=== PATIENT | male | born 1940 | race Caucasian/White ===

== ENCOUNTER 2018-06-05 11:22 | Observation (INO) | payer MEDICARE, SELFPAY ==
[2018-06-05] VITALS (13 sets, daily range): BP systolic 122–169; BP diastolic 74–98; PULSE 60–140; RESP 16–21; TEMP 36.6–36.9; O2SAT 94–97; BMI 31.8; BMI 30.8; BMI 30.9
--- NOTE | 2018-06-05 11:39 | EKG12_ITS ---
Test Reason : FALL Blood Pressure : / mmHG Vent. Rate : 066 BPM Atrial Rate : 066 BPM P-R Int : 218 ms QRS Dur : 090 ms QT Int : 418 ms P-R-T Axes : 049 -21 079 degrees QTc Int : 438 ms Sinus rhythm with 1st degree A-V block Leftward axis Septal DC, age undetermined, cannot be excluded Confirmed by BEVERLY GOLDSTEIN, CRISTHIAN ([id number]), acquisitions editor PAVAN STOVER ([id number]) on 06/10/2018 1:01:14 PM Referred By: YARELI Confirmed By:CRISTHIAN PAUL MD
--- NOTE | 2018-06-05 11:39 | CT_ITS ---
STUDY: CT BRAIN WITHOUT CONTRAST REASON FOR EXAM: Male, 78 years old. RADIATION DOSAGE (If Supplied By Facility): CTDIvol = ( 44.99 ) mGy, DLP = ( 779.24 ) mGycm TECHNIQUE: Transaxial CT imaging of the brain was performed without administration of intravenous contrast material. Individualized dose optimization techniques were used for this CT. COMPARISON: None. FINDINGS: Normal soft tissue structures. Normal calvarium. Normal size ventricles and extra-axial spaces for the patient's age. Normal white matter tracts of the cerebral hemispheres. Normal basal ganglia and thalami. Normal brainstem. Normal cerebellum. There is no intracranial hemorrhage. There are no findings of an acute ischemic infarction. Normal visualized paranasal sinuses. CT/Brain/Head without Contrast IMPRESSION: Normal unenhanced CT scan of the brain. Electronically Signed: Stefanie Villa, at 12:24 EST Tel , Service support ,
--- NOTE | 2018-06-05 11:39 | RAD_ITS ---
STUDY: X-RAY CHEST REASON FOR EXAM: Male, 78 years old. TECHNIQUE: COMPARISON: May 31, 2015. FINDINGS: The heart and mediastinum are within normal limits. Both lung romero and costophrenic angles are clear. There is calcification of the thoracic aorta with mild tortuosity. A central line is directed from the left side and the tip is in the proximal superior vena cava. The trachea is in the midline. No evidence also pleural effusion or pneumothorax. The bony thorax is intact. There are multiple metallic stitches along the sternum from previous surgery. RAD/Chest 1 View (Portable) IMPRESSION: Normal x-ray examination of the chest unchanged since May 31, 2015. Electronically Signed: Stefanie Villa, at 12:21 EST Tel , Service support ,
[2018-06-05 11:50] LABS: Bedside Glucose 119 mg/dL (70-110)
[2018-06-05 11:54] LABS: Absolute Lymphocyte Count 1.84 X10^3/ul (0.83-4.51); Absolute Neutrophil Count 5.8 X10^3/uL (2.0-7.7); Basophil# 0.02 X10^3/uL; Basophil% 0.2 % (0-1); Eosinophil# 0.13 X10^3/uL; Eosinophils% 1.5 % (0-5); Hematocrit 44.4 % (40-54); Hemoglobin 14.4 g/dl (13.0-16.5); Lymphocyte # 1.84 X10^3/ul (4.0); Lymphocyte % 21.7 % (19-41); Mean Corp Hgb Conc 32.4 g/gl (32-36); Mean Corpuscular Hgb 31.4 pg (27.0-32.0); Mean Corpuscular Volume 96.7 fL (80-94); Monocyte# 0.66 X10^3/uL; Monocyte% 7.8 % (0-10); Neutrophil # 5.82 X10^3/uL (2.7-7.7); Neutrophil % 68.6 % (47-70); POSITIVE COUNT NO; POSITIVE DIFFERENTIAL NO; POSITIVE MORPHOLOGY NO; Platelet Count 257 K/mm3 (150-450); RBC Distribution Width CV 14.1 % (11.6-14.6); RBC Distribution Width SD 48.8 fl (35.1-43.9); Red Blood Count 4.59 M/mm3 (4.6-6.2); White Blood Count 8.5 K/mm3 (4.4-11.0)
[2018-06-05 12:00] LABS: International Normalized Ratio 2.5; Prothrombin Time (Protime)PT. 27.3 SECONDS (11.7-14.9)
[2018-06-05 12:14] LABS: Anion Gap 5 (5-15); BUN 29 mg/dL (7-18); BUN/Creat Ratio 24.4 RATIO (10-20); Calcium,Total 8.7 mg/dL (8.5-10.1); Chloride 110 mmol/L (98-107); Creatinine, Serum 1.19 mg/dL (0.70-1.30); EST Glomerular Filtration Rate 63 mL/min (>60); Est Glom Filt Rate - Afr Amer 76 mL/min (>60); Estimated Creatinine Clearance 55.25 ml/min; Glucose 138 mg/dL (74-106); Potassium 4.6 mmol/L (3.5-5.1); Sodium Level 143 mmol/L (136-145)
[2018-06-05] MEDS: 0.9% Normal Saline 1,000 ML 150 ML IV (12:31)
[2018-06-05 12:37] LABS: Bacteria 0 SEEN /hpf (None Seen); Squamous Epithelial Cells - UA 0 SEEN /hpf (0-5); White Blood Cells 0 SEEN /hpf (0-5)
[2018-06-05 12:38] LABS: Color, Urine Yellow (Yellow); Glucose, Dipstick Normal (Normal); Ketone-Dipstick Negative (Negative); Leukocyte Esterase-Dipstick Negative /ul (Negative); Nitrite-Dipstick Negative (Negative); Occult Blood-Urine 25 /ul (Negative); Protein-Dipstick 30 mg/dl (Negative); Urine Bilirubin Dipstick Negative (Negative); Urine Clarity Clear (Clear); Urine Urobilinogen Normal (Normal)
[2018-06-05 12:44] LABS: Hyaline Cast 0-5 SEEN /lpf (0-5)
[2018-06-05 12:45] LABS: Mucous, Urine RARE /hpf (<or=2+); Red Blood Cells-Urine 0-5 SEEN /hpf (0-5)
--- NOTE | 2018-06-05 12:57 | ED.DCSUM_ITS ---
- ER Visit Summary Date of Service: 06/05/18 Chief Complaint: [Slurred speech and generalized weakness ] History of Present Illness: The patient is a 78 M [presents to the emergency department after sustaining a fall this morning. Patient's son spoke with him at 8 AM and he was feeling well. Patient at some point had a mechanical fall and he thinks he tripped. Patient did not hit his head. Patient denies loss of consciousness. Patient was unable to get up off the floor. Patient's son attempted to call the patient x2 when he did not answer and finally the third time he did answer the phone and told the son he had fallen and could not get back up. The son at that time noticed that he had slurred speech. She has no history of stroke. Patient does have a history of prior GI bleed, diabetes, hypertension, aortic valve replacement, and gout history. Patient is on Coumadin.] Physical Examination: [HEENT-PERRLA, EOMI. Cranial nerves II through XII grossly intact. TMs clear. Mucous membranes moist. No adenopathy. No external evidence of trauma to his head. No C-spine tenderness on palpation. Cardiovascular-regular rate and rhythm without murmur or ectopy Lungs-clear to auscultation, chest wall stable without crepitus or subcu emphysema Abdomen-normoactive bowel sounds, soft, nontender, no rebound or rigidity, no peritoneal signs. Neuro exam-NIH stroke scale was a 1 for some dysarthria. No focal weakness noted. No facial droop noted. Extremities-intact ?4, normal range of motion, normal pulses, atraumatic] Test Results: [Fingerstick blood sugar on arrival was 119. CBC with differential obtained showed a white of 8.5, hemoglobin 14, hematocrit 44, placed 257. Chemistries were unremarkable. INR was 2.5. Urinalysis was normal. Troponin was less than 0.015. Chest x-ray showed nothing acute. EKG on arrival showed a sinus rhythm with first-degree AV block with a ventricular rate of [address] scan of the brain without contrast was normal.] Emergency Department Course and Treatment: [And received normal saline and patient will be admitted.] Treatment Plan: [Admit for further workup and evaluation.] Disposition: [Admit] Impression: [Generalized weakness Dysarthria-rule out CVA Mechanical fall Coumadin coagulopathy] This note was generated with [employer] dictation software. It may contain incorrect words, spelling, and punctuation that were not noted in review of the chart prior to signing ED Disposition - Plan for ED Patient: Chief Complaint: Neuro S/Sx Referrals: Andres Arce DO [Primary Care Provider] -
--- NOTE | 2018-06-05 13:47 | PCM.HP.STD ---
Problem List (1) History of GI bleed Status: Chronic (2) Chronic anticoagulation Status: Chronic (3) HTN (hypertension) Status: Chronic (4) History of aortic valve replacement Status: Chronic (5) Diabetes mellitus, type 2 Status: Chronic (6) Gout Status: Chronic History of Present Illness Date of Admission: 06/05/18 Chief Complaint: Fall, slurred speech. The patient is a 78 year old M with past medical history as mentioned above presented to the emergency room because of fall and slurred speech as well as generalized weakness. The patient is a poor informant and was not able to provide detailed history. Patient's son was at the bedside and they provide most of the information. According to patient's son, the son spoke with his father this morning around 8 AM and he was fine. After this phone call, patient apparently had a mechanical fall and he could not get up off the floor. Patient denied any head injury or loss of consciousness. The son attempted to call his father again twice but the father did not answer the phone call. The son came to see his father and he notes that he has slurred speech and patient stated that his vision is blurry as well. Patient denied focal arm or leg weakness. He denied numbness or tingling. Denies chest pain or shortness of breath. Denied dose of consciousness. He had a history of aortic valve replacement with prosthetic valve and he has been on Coumadin for anti-coagulation. He had a history of type 2 diabetes mellitus and his blood sugars seem to be under controlled with glimepiride. He had a history of hypertension which also has been under control with Norvasc and atenolol. In the emergency department, his blood pressure was slightly elevated, other vital signs were stable. His NIH score was 1 for mild dysarthria. Routine blood work was unremarkable. His EKG revealed normal sinus rhythm with first-degree AV block, IN interval of 280 ms, no ischemic changes. Troponin was negative. CT scan brain without contrast showed no acute findings. Chest x-ray showed no acute findings. He is being admitted for fall, slurred speech/blurred vision with concern of TIA. Past Medical History Past Medical History (Chronic Problems): Chronic Problems History of GI bleed (Chronic) Chronic anticoagulation (Chronic) HTN (hypertension) (Chronic) History of aortic valve replacement (Chronic) Diabetes mellitus, type 2 (Chronic) Gout (Chronic) Allergies No Known Allergies Allergy (Verified 06/05/18 12:15) Home Medications: Ambulatory Orders Medication Instructions Recorded Allopurinol [Zyloprim] 100 mg PO DAILYCM 05/27/15 Amlodipine [Norvasc] 5 mg PO QHS 05/27/15 Atenolol [Tenormin] 50 mg PO QHS 05/27/15 Glimepiride [Amaryl] 2 mg PO DAILY 05/27/15 Multivitamins,Therapeutic 1 tablet PO DAILY 05/27/15 [Multivitamin] Antacid Liquid 10 ml PO 4X/DAY PRN PRN 06/17/15 Atorvastatin Calcium [Lipitor] 10 mg PO DAILY 06/17/15 Tamsulosin HCl [Flomax] 0.4 mg PO DAILY 06/17/15 Warfarin Sodium 0.5 tab PO MILLIGAN 06/05/18 Warfarin Sodium 6 mg PO MOTUWETHFRSA 06/05/18 Surgical History: - - Aortic valve replacement in approximately 1994 Psychiatric History: No pertinent psych hx Lives: Alone Smoking Status: Former smoker Alcohol: None Drugs: None - *Family History Paternal History Items: COPD Maternal History Items: Diabetes Review of Systems Constitutional: Reports: Weakness. Denies: Anorexia, Chills, Fever Eyes: Denies: Blurred vision, Double vision, Drainage, Redness HEENT: Denies: Difficulty Hearing, Ear Pain, Eye Pain, Nasal Congestion, Sore Throat Cardiovascular: Denies: Chest Pain, Claudication, Chest Tightness, Heaviness, Light Headedness, Palpitations, Syncope Respiratory: Denies: Cough, Pleuritic Pain, Shortness of Breath, Sputum production, Wheezing Gastrointestinal: Denies: Abdominal Pain, Constipation, Diarrhea, Nausea, Vomiting Genitourinary: Denies: Dysuria, Frequency, Hematuria Musculoskeletal: Denies: Arm Pain, Back Pain, Foot Pain Skin: Denies: Dryness, Rash Neurological: Reports: Blurred vision, Slurred speech. Denies: Balance problems, Confusion, Focal weakness, Headaches, Incoordination, Numbness Psychiatric: Denies: Anxiety, Depression Endocrine: Denies: Change in Body Habitus, Polydipsia VTE Information - Inpt Only VTE Present on Admission: No VTE Mechan Device Prophylaxis: None VTE Pharm Prophylaxis ordered?: No - Physical Exam General: Alert, Oriented x3, Cooperative, No apparent distress HEENT: Atraumatic, PERRLA, EOMI, Normocephalic Oral: Moist Mucosa, No Gingival or Mucosal Lesions/ Ulcerations Neck: Supple, No JVD, Negative Carotid Bruits, Trachea Midline, Thyroid Normal Size and Texture Lungs: Clear to auscultation, No rhonchi, No wheeze, No rales, Diminished Cardiovascular: Regular rate, Regular Rhythm, Normal S1, Normal S2, - - Metallic click. Abdomen: Bowel Sounds Present, Soft, Non Tender, Non-Distended, No Hepato-splenomegaly, Obese Extremities: No clubbing, No cyanosis, No edema Skin: No rashes, No breakdown Lymphatic: No Cervical, Supraclavicular, or Inguinal Adenopathy Neurological: Cranial nerves II-XII grossly intact, Motor Exam 5/5 strength throughout, - - Mild dysarthria. Psych/Mental Status: Flat Affect, Alert and oriented to time, place, person, mood and affect Vital Signs Temp Pulse Resp BP Pulse Ox 98.3 F 74 20 H 169/79 H 96 06/05/18 11:29 06/05/18 13:36 06/05/18 13:36 06/05/18 13:36 06/05/18 13:36 Oxygen Delivery Method Room Air Weight: 234 lb 9.149 oz Body Mass Index (BMI) 31.8 Finger Stick Blood Glucose 119 Laboratory Tests Past 24 Hrs 06/05/18 06/05/18 06/05/18 11:46 11:46 11:46 WBC 8.5 RBC 4.59 L Hgb 14.4 Hct 44.4 MCV 96.7 H MCH 31.4 MCHC 32.4 RDW 14.1 RDW Differential 48.8 H Plt Count 257 MPV 10.0 Immature Gran % (Auto) 0.200 Neut % (Auto) 68.6 Lymph % (Auto) 21.7 [place] % (Auto) 7.8 Eos % (Auto) 1.5 Baso % (Auto) 0.2 Absolute Neuts (auto) 5.8 Absolute Lymphs (auto) 1.84 Total Counted Not Reportable PT 27.3 H INR 2.5 Sodium 143 Potassium 4.6 Chloride 110 H Carbon Dioxide 28.0 Anion Gap 5 BUN 29 H Creatinine 1.19 Estim Creat Clear Calc 55.25 Est GFR (MDRD) Af Amer 76 Est GFR (MDRD) Non-Af 63 BUN/Creatinine Ratio 24.4 H Glucose 138 H Calcium 8.7 Troponin I < 0.015 Urine Color Urine Clarity Urine pH Ur Specific [place] Urine Protein Urine Glucose (UA) Urine Ketones Urine Occult Blood Urine Nitrite Urine Bilirubin Urine Urobilinogen Ur Leukocyte Esterase Urine RBC Urine WBC Ur Squamous Epith Cells Urine Bacteria Hyaline Casts Urine Mucus 06/05/18 12:25 WBC RBC Hgb Hct MCV MCH MCHC RDW RDW Differential Plt Count MPV Immature Gran % (Auto) Neut % (Auto) Lymph % (Auto) [place] % (Auto) Eos % (Auto) Baso % (Auto) Absolute Neuts (auto) Absolute Lymphs (auto) Total Counted PT INR Sodium Potassium Chloride Carbon Dioxide Anion Gap BUN Creatinine Estim Creat Clear Calc Est GFR (MDRD) Af Amer Est GFR (MDRD) Non-Af BUN/Creatinine Ratio Glucose Calcium Troponin I Urine Color Yellow Urine Clarity Clear Urine pH 6.0 Ur Specific [place] 1.020 Urine Protein 30 H Urine Glucose (UA) Normal Urine Ketones Negative Urine Occult Blood 25 H Urine Nitrite Negative Urine Bilirubin Negative Urine Urobilinogen Normal Ur Leukocyte Esterase Negative Urine RBC 0-5 SEEN Urine WBC 0 SEEN Ur Squamous Epith Cells 0 SEEN Urine Bacteria 0 SEEN Hyaline Casts 0-5 SEEN Urine Mucus RARE POC Glucose 06/05/18 11:39 POC Glucose 119 H Clinical Impression(s) from Imaging Studies Brain CT 06/05/18 11:39 IMPRESSION: Normal unenhanced CT scan of the brain. Electronically Signed: Susanajuanita Daisy, at 12:24 EST Tel , Service support , Chest X-Ray 06/05/18 11:39 IMPRESSION: Normal x-ray examination of the chest unchanged since May 31, 2015. Electronically Signed: Susanajuanita Daisy, at 12:21 EST Tel , Service support , Assessment/Plan This is a 78 years old male patient presented to the emergency room because of fall, slurred speech and blurred vision and he is being admitted for evaluation for probable TIA. #1 slurred speech/blurred vision/probable TIA: He has no focal deficit on physical exam except mild dysarthria. Initial CT scan brain showed no acute findings. EKG revealed normal sinus and first-degree AV block, no acute findings. Blood pressure slightly elevated, other vital signs are stable. Plan: Admit to PCU for observation, cardiac monitoring, NIH stroke scale, continue Coumadin, start Lipitor 80 mg nightly, MRI brain, CTA of the head and neck, IV fluids, 2D echocardiogram, neurology consult, repeat BMP and INR tomorrow morning, fasting lipid profile, PT OT evaluation and treatment. I spoke with the MRI department about doing the MRI for this patient who had a history of prosthetic aortic valve replacement and they stated that no contraindication to do the MRI. #2 fall: Patient states that he tripped off on something and he fell. Seem to be mechanical valve. No evidence of head or body trauma. Initial CT scan brain showed no acute findings. Plan to monitor, PT OT eval and treatment, patient may need placement to shelter facility because he lives alone at home. #3 type 2 diabetes mellitus: ADA diet, Accu-Cheks, insulin sliding scale, continue glimepiride. #4 hypertension: Blood pressure slightly elevated, will allow permissive hypertension at this time. Continue Norvasc and atenolol. #5 history of GI bleed: Stable, no active bleeding. Hematocrit and hemoglobin are stable. #6 status post aortic valve replacement with mechanical valve: On lifelong Coumadin, INR is 2.5. Plan to continue Coumadin, repeat INR tomorrow morning. #7 gout: Continue allopurinol. #8 DVT prophylaxis: INR is therapeutic at 2.5. This note was generated with [employer] dictation software. It may contain incorrect words, spelling, and punctuation that were not noted in checking the note before signing. Code Visit OBSV E&M: 94904 Initial observation care L3
--- NOTE | 2018-06-05 13:52 | HP.PCM_ITS ---
Problem List (1) History of GI bleed Status: Chronic (2) Chronic anticoagulation Status: Chronic (3) HTN (hypertension) Status: Chronic (4) History of aortic valve replacement Status: Chronic (5) Diabetes mellitus, type 2 Status: Chronic (6) Gout Status: Chronic History of Present Illness Date of Admission: 06/05/18 Chief Complaint: Fall, slurred speech. The patient is a 78 year old M with past medical history as mentioned above presented to the emergency room because of fall and slurred speech as well as generalized weakness. The patient is a poor informant and was not able to provide detailed history. Patient's son was at the bedside and they provide most of the information. According to patient's son, the son spoke with his father this morning around 8 AM and he was fine. After this phone call, patient apparently had a mechanical fall and he could not get up off the floor. Patient denied any head injury or loss of consciousness. The son attempted to call his father again twice but the father did not answer the phone call. The son came to see his father and he notes that he has slurred speech and patient stated that his vision is blurry as well. Patient denied focal arm or leg weakness. He denied numbness or tingling. Denies chest pain or shortness of breath. Denied dose of consciousness. He had a history of aortic valve replacement with prosthetic valve and he has been on Coumadin for anti-coagulation. He had a history of type 2 diabetes mellitus and his blood sugars seem to be under controlled with glimepiride. He had a history of hypertension which also has been under control with Norvasc and atenolol. In the emergency department, his blood pressure was slightly elevated, other vital signs were stable. His NIH score was 1 for mild dysarthria. Routine blood work was unremarkable. His EKG revealed normal sinus rhythm with first-degree AV block, [place] interval of 280 ms, no ischemic changes. Troponin was negative. CT scan brain without contrast showed no acute findings. Chest x-ray showed no acute findings. He is being admitted for fall, slurred speech/blurred vision with concern of TIA. Past Medical History Past Medical History (Chronic Problems): Chronic Problems History of GI bleed (Chronic) Chronic anticoagulation (Chronic) HTN (hypertension) (Chronic) History of aortic valve replacement (Chronic) Diabetes mellitus, type 2 (Chronic) Gout (Chronic) Allergies No Known Allergies Allergy (Verified 06/05/18 12:15) Home Medications: Ambulatory Orders Medication Instructions Recorded Allopurinol [Zyloprim] 100 mg PO DAILYCM 05/27/15 Amlodipine [Norvasc] 5 mg PO QHS 05/27/15 Atenolol [Tenormin] 50 mg PO QHS 05/27/15 Glimepiride [Amaryl] 2 mg PO DAILY 05/27/15 Multivitamins,Therapeutic 1 tablet PO DAILY 05/27/15 [Multivitamin] Antacid Liquid 10 ml PO 4X/DAY PRN PRN 06/17/15 Atorvastatin Calcium [Lipitor] 10 mg PO DAILY 06/17/15 Tamsulosin HCl [Flomax] 0.4 mg PO DAILY 06/17/15 Warfarin Sodium 0.5 tab PO MILLIGAN 06/05/18 Warfarin Sodium 6 mg PO MOTUWETHFRSA 06/05/18 Surgical History: - - Aortic valve replacement in approximately 1994 Psychiatric History: No pertinent psych hx Lives: Alone Smoking Status: Former smoker Alcohol: None Drugs: None - *Family History Paternal History Items: COPD Maternal History Items: Diabetes Review of Systems Constitutional: Reports: Weakness. Denies: Anorexia, Chills, Fever Eyes: Denies: Blurred vision, Double vision, Drainage, Redness HEENT: Denies: Difficulty Hearing, Ear Pain, Eye Pain, Nasal Congestion, Sore Throat Cardiovascular: Denies: Chest Pain, Claudication, Chest Tightness, Heaviness, Light Headedness, Palpitations, Syncope Respiratory: Denies: Cough, Pleuritic Pain, Shortness of Breath, Sputum product ion, Wheezing Gastrointestinal: Denies: Abdominal Pain, Constipation, Diarrhea, Nausea, Vomiting Genitourinary: Denies: Dysuria, Frequency, Hematuria Musculoskeletal: Denies: Arm Pain, Back Pain, Foot Pain Skin: Denies: Dryness, Rash Neurological: Reports: Blurred vision, Slurred speech. Denies: Balance problems, Confusion, Focal weakness, Headaches, Incoordination, Numbness Psychiatric: Denies: Anxiety, Depression Endocrine: Denies: Change in Body Habitus, Polydipsia VTE Information - Inpt Only VTE Present on Admission: No VTE Mechan Device Prophylaxis: None VTE Pharm Prophylaxis ordered?: No - Physical Exam General: Alert, Oriented x3, Cooperative, No apparent distress HEENT: Atraumatic, PERRLA, EOMI, Normocephalic Oral: Moist Mucosa, No Gingival or Mucosal Lesions/ Ulcerations Neck: Supple, No JVD, Negative Carotid Bruits, Trachea Midline, Thyroid Normal Size and Texture Lungs: Clear to auscultation, No rhonchi, No wheeze, No rales, Diminished Cardiovascular: Regular rate, Regular Rhythm, Normal S1, Normal S2, - - Metallic click. Abdomen: Bowel Sounds Present, Soft, Non Tender, Non-Distended, No Hepato- splenomegaly, Obese Extremities: No clubbing, No cyanosis, No edema Skin: No rashes, No breakdown Lymphatic: No Cervical, Supraclavicular, or Inguinal Adenopathy Neurological: Cranial nerves II-XII grossly intact, Motor Exam 5/5 strength throughout, - - Mild dysarthria. Psych/Mental Status: Flat Affect, Alert and oriented to time, place, person, mood and affect Vital Signs Temp Pulse Resp BP Pulse Ox 98.3 F 74 20 H 169/79 H 96 06/05/18 11:29 06/05/18 13:36 06/05/18 13:36 06/05/18 13:36 06/05/18 13:36 Oxygen Delivery Method Room Air Weight: 234 lb 9.149 oz Body Mass Index (BMI) 31.8 Finger Stick Blood Glucose 119 Laboratory Tests Past 24 Hrs 06/05/18 06/05/18 06/05/18 11:46 11:46 11:46 WBC 8.5 RBC 4.59 L Hgb 14.4 Hct 44.4 MCV 96.7 H MCH 31.4 MCHC 32.4 RDW 14.1 RDW Differential 48.8 H Plt Count 257 MPV 10.0 Immature Gran % (Auto) 0.200 Neut % (Auto) 68.6 Lymph % (Auto) 21.7 [place] % (Auto) 7.8 Eos % (Auto) 1.5 Baso % (Auto) 0.2 Absolute Neuts (auto) 5.8 Absolute Lymphs (auto) 1.84 Total Counted Not Reportable PT 27.3 H INR 2.5 Sodium 143 Potassium 4.6 Chloride 110 H Carbon Dioxide 28.0 Anion Gap 5 BUN 29 H Creatinine 1.19 Estim Creat Clear Calc 55.25 Est GFR (MDRD) Af Amer 76 Est GFR (MDRD) Non-Af 63 BUN/Creatinine Ratio 24.4 H Glucose 138 H Calcium 8.7 Troponin I < 0.015 Urine Color Urine Clarity Urine pH Ur Specific [place] Urine Protein Urine Glucose (UA) Urine Ketones Urine Occult Blood Urine Nitrite Urine Bilirubin Urine Urobilinogen Ur Leukocyte Esterase Urine RBC Urine WBC Ur Squamous Epith Cells Urine Bacteria Hyaline Casts Urine Mucus 06/05/18 12:25 WBC RBC Hgb Hct MCV MCH MCHC RDW RDW Differential Plt Count MPV Immature Gran % (Auto) Neut % (Auto) Lymph % (Auto) [place] % (Auto) Eos % (Auto) Baso % (Auto) Absolute Neuts (auto) Absolute Lymphs (auto) Total Counted PT INR Sodium Potassium Chloride Carbon Dioxide Anion Gap BUN Creatinine Estim Creat Clear Calc Est GFR (MDRD) Af Amer Est GFR (MDRD) Non-Af BUN/Creatinine Ratio Glucose Calcium Troponin I Urine Color Yellow Urine Clarity Clear Urine pH 6.0 Ur Specific [place] 1.020 Urine Protein 30 H Urine Glucose (UA) Normal Urine Ketones Negative Urine Occult Blood 25 H Urine Nitrite Negative Urine Bilirubin Negative Urine Urobilinogen Normal Ur Leukocyte Esterase Negative Urine RBC 0-5 SEEN Urine WBC 0 SEEN Ur Squamous Epith Cells 0 SEEN Urine Bacteria 0 SEEN Hyaline Casts 0-5 SEEN Urine Mucus RARE POC Glucose 06/05/18 11:39 POC Glucose 119 H Clinical Impression(s) from Imaging Studies Brain CT 06/05/18 11:39 IMPRESSION: Normal unenhanced CT scan of the brain. Electronically Signed: Susanajuanita Daisy, at 12:24 EST Tel , Service support , Chest X-Ray 06/05/18 11:39 IMPRESSION: Normal x-ray examination of the chest unchanged since May 31, 2015. Electronically Signed: Susanajuanita Daisy, at 12:21 EST Tel , Service support , Assessment/Plan This is a 78 years old male patient presented to the emergency room because of fall, slurred speech and blurred vision and he is being admitted for evaluation for probable TIA. #1 slurred speech/blurred vision/probable TIA: He has no focal deficit on physical exam except mild dysarthria. Initial CT scan brain showed no acute findings. EKG revealed normal sinus and first-degree AV block, no acute findings. Blood pressure slightly elevated, other vital signs are stable. Plan: Admit to PCU for observation, cardiac monitoring, NIH stroke scale, continue Coumadin, start Lipitor 80 mg nightly, MRI brain, CTA of the head and neck, IV fluids, 2D echocardiogram, neurology consult, repeat BMP and INR tomorrow morning, fasting lipid profile, PT OT evaluation and treatment. I spoke with the MRI department about doing the MRI for this patient who had a history of prosthetic aortic valve replacement and they stated that no contraindication to do the MRI. #2 fall: Patient states that he tripped off on something and he fell. Seem to be mechanical valve. No evidence of head or body trauma. Initial CT scan brain showed no acute findings. Plan to monitor, PT OT eval and treatment, patient may need placement to intermediate facility because he lives alone at home. #3 type 2 diabetes mellitus: ADA diet, Accu-Cheks, insulin sliding scale, continue glimepiride. #4 hypertension: Blood pressure slightly elevated, will allow permissive hypertension at this time. Continue Norvasc and atenolol. #5 history of GI bleed: Stable, no active bleeding. Hematocrit and hemoglobin are stable. #6 status post aortic valve replacement with mechanical valve: On lifelong Coumadin, INR is 2.5. Plan to continue Coumadin, repeat INR tomorrow morning. #7 gout: Continue allopurinol. #8 DVT prophylaxis: INR is therapeutic at 2.5. This note was generated with [employer] dictation software. It may contain incorrect words, spelling, and punctuation that were not noted in checking the note before signing. Code Visit OBSV E&M: 33162 Initial observation care L3
--- NOTE | 2018-06-05 14:48 | MRI_ITS ---
STUDY: MRI BRAIN WITHOUT CONTRAST REASON FOR EXAM: Male, 78 years old. Slurred speech. Blurred vision. TECHNIQUE: Standardized multiplanar fat and water weighted pulse sequences were obtained. COMPARISON: CT. FINDINGS: There is mild cerebral atrophy with widening of the extra-axial spaces and ventricular dilatation. There are a limited number of small white matter hyperintensities, distributed throughout the deep white matter tracts of the cerebral hemispheres, consistent with mild chronic white matter ischemic changes. Normal T2* images of the brain without demonstrated susceptibility artifact. There is no demonstrated hemosiderin stain. Normal bilateral basal ganglia. Bilateral recent infarcts with restricted diffusion of the thalami, series 4 image 15/60. There is no extra-axial fluid accumulation. Normal flow voids within the major intracranial circulation suggesting patency by spin echo criteria. Normal sella turcica, pituitary gland, infundibular stalk, optic chiasm and hypothalamus. Normal tectal plate and pineal gland. There are chronic white matter ischemic changes of the tena. The midbrain and medulla are otherwise normal. Normal cerebellum. Normal basal cisterns. Normal bilateral temporal bones. Normal bilateral internal auditory canals. No demonstrated orbital abnormality, within the constraints of a routine brain study. Normal visualized paranasal sinuses. Normal calvarium and skull base. Normal visualized soft tissue structures. Normal visualized upper cervical spine. 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 N.B. : The above information has been verbally conveyed by Rom Norman MD to Tara Hills RN, on 06/05/2018 17:26:32 (ET). Electronically Signed: Rom Norman MD at 16:59 EST , Service support ,
--- NOTE | 2018-06-05 16:30 | PCM.CONS.GEN ---
Reason for Consult Date of Consultation: 06/05/18 Reason for Consultation: POSSIBLE STROKE History of Present Illness: The patient is a 78 year old RIGHT HANDED white male on coumadin due to mechanical valve, was normal this am, walked to mailbox, then at 930am was noted to have slurred speech and called son who called the squad. denies recent illness. denies med changes and has been compliant. no injury with fall. now notes only slurred speech and generalized weakness. PER ADMIT NOTE:The patient is a 78 year old M with past medical history as mentioned above presented to the emergency room because of fall and slurred speech as well as generalized weakness. The patient is a poor informant and was not able to provide detailed history. Patient's son was at the bedside and they provide most of the information. According to patient's son, the son spoke with his father this morning around 8 AM and he was fine. After this phone call, patient apparently had a mechanical fall and he could not get up off the floor. Patient denied any head injury or loss of consciousness. The son attempted to call his father again twice but the father did not answer the phone call. The son came to see his father and he notes that he has slurred speech and patient stated that his vision is blurry as well. Patient denied focal arm or leg weakness. He denied numbness or tingling. Denies chest pain or shortness of breath. Denied dose of consciousness. He had a history of aortic valve replacement with prosthetic valve and he has been on Coumadin for anti-coagulation. He had a history of type 2 diabetes mellitus and his blood sugars seem to be under controlled with glimepiride. He had a history of hypertension which also has been under control with Norvasc and atenolol. In the emergency department, his blood pressure was slightly elevated, other vital signs were stable. His NIH score was 1 for mild dysarthria. Routine blood work was unremarkable. His EKG revealed normal sinus rhythm with first-degree AV block, [place] interval of 280 ms, no ischemic changes. Troponin was negative. CT scan brain without contrast showed no acute findings. Chest x-ray showed no acute findings. He is being admitted for fall, slurred speech/blurred vision with concern of TIA. Past Medical History Past Medical History (Chronic Problems): Chronic Problems History of GI bleed (Chronic) Chronic anticoagulation (Chronic) HTN (hypertension) (Chronic) History of aortic valve replacement (Chronic) Diabetes mellitus, type 2 (Chronic) Gout (Chronic) Allergies No Known Allergies Allergy (Verified 06/05/18 12:15) Home Medications: Ambulatory Orders Medication Instructions Recorded Allopurinol [Zyloprim] 100 mg PO DAILYCM 05/27/15 Amlodipine [Norvasc] 5 mg PO DAILY 05/27/15 Atenolol [Tenormin] 50 mg PO QHS 05/27/15 Glimepiride [Amaryl] 2 mg PO DAILY 05/27/15 Multivitamins,Therapeutic 1 tablet PO DAILY 05/27/15 [Multivitamin] Antacid Liquid 10 ml PO 4X/DAY PRN PRN 06/17/15 Atorvastatin Calcium [Lipitor] 10 mg PO DAILY 06/17/15 Tamsulosin HCl [Flomax] 0.4 mg PO DAILY 06/17/15 Warfarin Sodium 3 mg PO ALAS 06/05/18 Warfarin Sodium 6 mg PO MOTUWETHFRSA 06/05/18 Surgical History: - - Aortic valve replacement in approximately 1994 Psychiatric History: No pertinent psych hx Lives: Alone Smoking Status: Former smoker Tobacco Use: Cigarettes Alcohol: None Drugs: None - *Family History Paternal History Items: COPD Maternal History Items: Diabetes Review of Systems Constitutional: Denies: Chills, Fever, Weight Change HEENT: Denies: Head Aches, Sinus Congestion, Sinus Drainage Cardiovascular: Denies: Chest Pain, Palpitations Respiratory: Denies: Cough, Shortness of breath at rest, Sputum production Gastrointestinal: Denies: Abdominal Pain, Nausea, Vomiting Genitourinary: Denies: Dysuria Musculoskeletal: Denies: Joint Pain, Joint Tenderness Skin: Denies: Rash, Wounds Neurological: Denies: Numbness, Tingling, Focal weakness Psychiatric: Denies: Anxiety, Depression, Homicidal Ideations, Suicidal Ideations Hematologic/ Lymphatic: Denies: Easy Bruising, Easy Bleeding - Physical Exam General: Alert, Oriented x3, Cooperative, No apparent distress, Well developed, Well nourished HEENT: PERRLA, EOMI Neurological: Cranial nerves II-XII grossly intact, Neuro grossly intact, Motor Exam 5/5 strength throughout, Slurred Speech, Muscle tone normal, Sensory exam intact to light touch and pain Psych/Mental Status: Normal Affect, Alert and oriented to time, place, person, mood and affect Vital Signs Temp Pulse Resp BP Pulse Ox 36.9 C 73 18 163/74 H 97 06/05/18 14:26 06/05/18 14:26 06/05/18 14:26 06/05/18 14:26 06/05/18 14:26 Oxygen Delivery Method Room Air Weight: 103.2 kg Body Mass Index (BMI) 30.8 Finger Stick Blood Glucose 119 Laboratory Tests Past 24 Hrs 06/05/18 06/05/18 06/05/18 11:46 11:46 11:46 WBC 8.5 RBC 4.59 L Hgb 14.4 Hct 44.4 MCV 96.7 H MCH 31.4 MCHC 32.4 RDW 14.1 RDW Differential 48.8 H Plt Count 257 MPV 10.0 Immature Gran % (Auto) 0.200 Neut % (Auto) 68.6 Lymph % (Auto) 21.7 [place] % (Auto) 7.8 Eos % (Auto) 1.5 Baso % (Auto) 0.2 Absolute Neuts (auto) 5.8 Absolute Lymphs (auto) 1.84 Total Counted Not Reportable PT 27.3 H INR 2.5 Sodium 143 Potassium 4.6 Chloride 110 H Carbon Dioxide 28.0 Anion Gap 5 BUN 29 H Creatinine 1.19 Estim Creat Clear Calc 55.25 Est GFR (MDRD) Af Amer 76 Est GFR (MDRD) Non-Af 63 BUN/Creatinine Ratio 24.4 H Glucose 138 H Calcium 8.7 Troponin I < 0.015 Urine Color Urine Clarity Urine pH Ur Specific [place] Urine Protein Urine Glucose (UA) Urine Ketones Urine Occult Blood Urine Nitrite Urine Bilirubin Urine Urobilinogen Ur Leukocyte Esterase Urine RBC Urine WBC Ur Squamous Epith Cells Urine Bacteria Hyaline Casts Urine Mucus 06/05/18 12:25 WBC RBC Hgb Hct MCV MCH MCHC RDW RDW Differential Plt Count MPV Immature Gran % (Auto) Neut % (Auto) Lymph % (Auto) [place] % (Auto) Eos % (Auto) Baso % (Auto) Absolute Neuts (auto) Absolute Lymphs (auto) Total Counted PT INR Sodium Potassium Chloride Carbon Dioxide Anion Gap BUN Creatinine Estim Creat Clear Calc Est GFR (MDRD) Af Amer Est GFR (MDRD) Non-Af BUN/Creatinine Ratio Glucose Calcium Troponin I Urine Color Yellow Urine Clarity Clear Urine pH 6.0 Ur Specific [place] 1.020 Urine Protein 30 H Urine Glucose (UA) Normal Urine Ketones Negative Urine Occult Blood 25 H Urine Nitrite Negative Urine Bilirubin Negative Urine Urobilinogen Normal Ur Leukocyte Esterase Negative Urine RBC 0-5 SEEN Urine WBC 0 SEEN Ur Squamous Epith Cells 0 SEEN Urine Bacteria 0 SEEN Hyaline Casts 0-5 SEEN Urine Mucus RARE POC Glucose 06/05/18 11:39 POC Glucose 119 H Current Home Med List Medication Instructions Recorded Confirmed Type Allopurinol [Zyloprim] 100 mg PO DAILYCM 05/27/15 06/05/18 History Amlodipine [Norvasc] 5 mg PO DAILY 05/27/15 06/05/18 History Atenolol [Tenormin] 50 mg PO QHS 05/27/15 06/05/18 History Glimepiride [Amaryl] 2 mg PO DAILY 05/27/15 06/05/18 History Multivitamins,Therapeutic 1 tablet PO DAILY 05/27/15 06/05/18 History [Multivitamin] Antacid Liquid 10 ml PO 4X/DAY PRN PRN 06/17/15 06/05/18 History Atorvastatin Calcium [Lipitor] 10 mg PO DAILY 06/17/15 06/05/18 History Tamsulosin HCl [Flomax] 0.4 mg PO DAILY 06/17/15 06/05/18 History Warfarin Sodium 3 mg PO ALAS 06/05/18 06/05/18 History Warfarin Sodium 6 mg PO MOTUWETHFRSA 06/05/18 06/05/18 History Current Medications Generic Name Dose Route Start Last Admin Trade Name Freq PRN Reason Stop Dose Admin Acetaminophen 650 mg 06/05/18 14:48 Tylenol PO Q6H PRN PRN Headache/Temp>99F Acetylcysteine 1,200 mg 06/05/18 22:00 Mucomyst PO 06/07/18 10:01 BID [facility] Allopurinol 100 mg 06/06/18 08[facility] Amlod[facility] Besylate 5 mg 06/05/18 22:00 Norvasc PO QHS [facility] Atenolol 50 mg 06/05/18 22:00 Tenormin (Beta Britt) PO QHS [facility] Atorvastatin Calcium 80 mg 06/05/18 22:00 Lipitor PO QHS [facility] Glimepiride 2 mg 06/06/18 08:00 Amaryl PO DAILYCM [facility] Sodium Chloride 1,000 mls @ 75 mls/hr 06/05/18 14:48 IV 06/06/18 04:07 .[id number] [facility] Insulin Human Lispro 0 unit 06/05/18 16:00 Humalog Kwikpen (Bk) SC ACHS [facility] Protocol Magnesium Hydroxide 30 ml 06/05/18 14:48 Milk Of Magnesia PO DAILY PRN Constipation Tamsulosin HCl 0.4 mg 06/06/18 08:30 Flomax PO DAILY@0830 [facility] Warfarin Sodium 3 mg 06/09/18 17:00 Coumadin (Pbkc) PO Alas@1700 [facility] Warfarin Sodium 6 mg 06/05/18 17:00 Coumadin (Pbkc) PO MoTuWeThFrSa@1700 [facility] artery of [place] infarct on mri Assessment/Plan bilateral thalamic infarct, artery of [place] distribution therapeutic inr on coumadin currently tachycardic, ok to rx however suggest keep systolic greater that 120 CTA head and neck pt/ot/sp echo
--- NOTE | 2018-06-05 16:35 | CON.PCM_ITS ---
Reason for Consult Date of Consultation: 06/05/18 Reason for Consultation: POSSIBLE STROKE History of Present Illness: The patient is a 78 year old RIGHT HANDED white male on coumadin due to mechanical valve, was normal this am, walked to mailbox, then at 930am was noted to have slurred speech and called son who called the squad. denies recent illness. denies med changes and has been compliant. no injury with fall. now notes only slurred speech and generalized weakness. PER ADMIT NOTE:The patient is a 78 year old M with past medical history as mentioned above presented to the emergency room because of fall and slurred speech as well as generalized weakness. The patient is a poor informant and was not able to provide detailed history. Patient's son was at the bedside and they provide most of the information. According to patient's son, the son spoke with his father this morning around 8 AM and he was fine. After this phone call, patient apparently had a mechanical fall and he could not get up off the floor. Patient denied any head injury or loss of consciousness. The son attempted to call his father again twice but the father did not answer the phone call. The son came to see his father and he notes that he has slurred speech and patient stated that his vision is blurry as well. Patient denied focal arm or leg weakness. He denied numbness or tingling. Denies chest pain or shortness of breath. Denied dose of consciousness. He had a history of aortic valve replacement with prosthetic valve and he has been on Coumadin for anti- coagulation. He had a history of type 2 diabetes mellitus and his blood sugars seem to be under controlled with glimepiride. He had a history of hypertension which also has been under control with Norvasc and atenolol. In the emergency department, his blood pressure was slightly elevated, other vital signs were stable. His NIH score was 1 for mild dysarthria. Routine blood work was unremarkable. His EKG revealed normal sinus rhythm with first-degree AV block, MN interval of 280 ms, no ischemic changes. Troponin was negative. CT scan brain without contrast showed no acute findings. Chest x-ray showed no acute findings. He is being admitted for fall, slurred speech/blurred vision with concern of TIA. Past Medical History Past Medical History (Chronic Problems): Chronic Problems History of GI bleed (Chronic) Chronic anticoagulation (Chronic) HTN (hypertension) (Chronic) History of aortic valve replacement (Chronic) Diabetes mellitus, type 2 (Chronic) Gout (Chronic) Allergies No Known Allergies Allergy (Verified 06/05/18 12:15) Home Medications: Ambulatory Orders Medication Instructions Recorded Allopurinol [Zyloprim] 100 mg PO DAILYCM 05/27/15 Amlodipine [Norvasc] 5 mg PO DAILY 05/27/15 Atenolol [Tenormin] 50 mg PO QHS 05/27/15 Glimepiride [Amaryl] 2 mg PO DAILY 05/27/15 Multivitamins,Therapeutic 1 tablet PO DAILY 05/27/15 [Multivitamin] Antacid Liquid 10 ml PO 4X/DAY PRN PRN 06/17/15 Atorvastatin Calcium [Lipitor] 10 mg PO DAILY 06/17/15 Tamsulosin HCl [Flomax] 0.4 mg PO DAILY 06/17/15 Warfarin Sodium 3 mg PO ALAS 06/05/18 Warfarin Sodium 6 mg PO MOTUWETHFRSA 06/05/18 Surgical History: - - Aortic valve replacement in approximately 1994 Psychiatric History: No pertinent psych hx Lives: Alone Smoking Status: Former smoker Tobacco Use: Cigarettes Alcohol: None Drugs: None - *Family History Paternal History Items: COPD Maternal History Items: Diabetes Review of Systems Constitutional: Denies: Chills, Fever, Weight Change HEENT: Denies: Head Aches, Sinus Congestion, Sinus Drainage Cardiovascular: Denies: Chest Pain, Palpitations Respiratory: Denies: Cough, Shortness of breath at rest, Sputum production Gastrointestinal: Denies: Abdominal Pain, Nausea, Vomiting Genitourinary: Denies: Dysuria Musculoskeletal: Denies: Joint Pain, Joint Tenderness Skin: Denies: Rash, Wounds Neurological: Denies: Numbness, Tingling, Focal weakness Psychiatric: Denies: Anxiety, Depression, Homicidal Ideations, Suicidal Ideatio ns Hematologic/ Lymphatic: Denies: Easy Bruising, Easy Bleeding - Physical Exam General: Alert, Oriented x3, Cooperative, No apparent distress, Well developed, Well nourished HEENT: PERRLA, EOMI Neurological: Cranial nerves II-XII grossly intact, Neuro grossly intact, Motor Exam 5/5 strength throughout, Slurred Speech, Muscle tone normal, Sensory exam intact to light touch and pain Psych/Mental Status: Normal Affect, Alert and oriented to time, place, person, mood and affect Vital Signs Temp Pulse Resp BP Pulse Ox 36.9 C 73 18 163/74 H 97 06/05/18 14:26 06/05/18 14:26 06/05/18 14:26 06/05/18 14:26 06/05/18 14:26 Oxygen Delivery Method Room Air Weight: 103.2 kg Body Mass Index (BMI) 30.8 Finger Stick Blood Glucose 119 Laboratory Tests Past 24 Hrs 06/05/18 06/05/18 06/05/18 11:46 11:46 11:46 WBC 8.5 RBC 4.59 L Hgb 14.4 Hct 44.4 MCV 96.7 H MCH 31.4 MCHC 32.4 RDW 14.1 RDW Differential 48.8 H Plt Count 257 MPV 10.0 Immature Gran % (Auto) 0.200 Neut % (Auto) 68.6 Lymph % (Auto) 21.7 [place] % (Auto) 7.8 Eos % (Auto) 1.5 Baso % (Auto) 0.2 Absolute Neuts (auto) 5.8 Absolute Lymphs (auto) 1.84 Total Counted Not Reportable PT 27.3 H INR 2.5 Sodium 143 Potassium 4.6 Chloride 110 H Carbon Dioxide 28.0 Anion Gap 5 BUN 29 H Creatinine 1.19 Estim Creat Clear Calc 55.25 Est GFR (MDRD) Af Amer 76 Est GFR (MDRD) Non-Af 63 BUN/Creatinine Ratio 24.4 H Glucose 138 H Calcium 8.7 Troponin I < 0.015 Urine Color Urine Clarity Urine pH Ur Specific [place] Urine Protein Urine Glucose (UA) Urine Ketones Urine Occult Blood Urine Nitrite Urine Bilirubin Urine Urobilinogen Ur Leukocyte Esterase Urine RBC Urine WBC Ur Squamous Epith Cells Urine Bacteria Hyaline Casts Urine Mucus 06/05/18 12:25 WBC RBC Hgb Hct MCV MCH MCHC RDW RDW Differential Plt Count MPV Immature Gran % (Auto) Neut % (Auto) Lymph % (Auto) [place] % (Auto) Eos % (Auto) Baso % (Auto) Absolute Neuts (auto) Absolute Lymphs (auto) Total Counted PT INR Sodium Potassium Chloride Carbon Dioxide Anion Gap BUN Creatinine Estim Creat Clear Calc Est GFR (MDRD) Af Amer Est GFR (MDRD) Non-Af BUN/Creatinine Ratio Glucose Calcium Troponin I Urine Color Yellow Urine Clarity Clear Urine pH 6.0 Ur Specific [place] 1.020 Urine Protein 30 H Urine Glucose (UA) Normal Urine Ketones Negative Urine Occult Blood 25 H Urine Nitrite Negative Urine Bilirubin Negative Urine Urobilinogen Normal Ur Leukocyte Esterase Negative Urine RBC 0-5 SEEN Urine WBC 0 SEEN Ur Squamous Epith Cells 0 SEEN Urine Bacteria 0 SEEN Hyaline Casts 0-5 SEEN Urine Mucus RARE POC Glucose 06/05/18 11:39 POC Glucose 119 H Current Home Med List Medication Instructions Recorded Confirmed Type Allopurinol [Zyloprim] 100 mg PO DAILYCM 05/27/15 06/05/18 History Amlodipine [Norvasc] 5 mg PO DAILY 05/27/15 06/05/18 History Atenolol [Tenormin] 50 mg PO QHS 05/27/15 06/05/18 History Glimepiride [Amaryl] 2 mg PO DAILY 05/27/15 06/05/18 History Multivitamins,Therapeutic 1 tablet PO DAILY 05/27/15 06/05/18 History [Multivitamin] Antacid Liquid 10 ml PO 4X/DAY PRN PRN 06/17/15 06/05/18 History Atorvastatin Calcium [Lipitor] 10 mg PO DAILY 06/17/15 06/05/18 History Tamsulosin HCl [Flomax] 0.4 mg PO DAILY 06/17/15 06/05/18 History Warfarin Sodium 3 mg PO ALAS 06/05/18 06/05/18 History Warfarin Sodium 6 mg PO MOTUWETHFRSA 06/05/18 06/05/18 History Current Medications Generic Name Dose Route Start Last Admin Trade Name Freq PRN Reason Stop Dose Admin Acetaminophen 650 mg 06/05/18 14:48 Tylenol PO Q6H PRN PRN Headache/Temp>99F Acetylcysteine 1,200 mg 06/05/18 22:00 Mucomyst PO 06/07/18 10:01 BID [facility] Allopurinol 100 mg 06/06/18 08:00 [facility] Amlod[facility] Besylate 5 mg 06/05/18 22:00 Norvasc PO QHS [facility] Atenolol 50 mg 06/05/18 22:00 Tenormin (Beta Britt) PO QHS [facility] Atorvastatin Calcium 80 mg 06/05/18 22:00 Lipitor PO QHS [facility] Glimepiride 2 mg 06/06/18 08:00 Amaryl PO DAILYCM [facility] Sodium Chloride 1,000 mls @ 75 mls/hr 06/05/18 14:48 IV 06/06/18 04:07 .[id number] [facility] Insulin Human Lispro 0 unit 06/05/18 16:00 Humalog Kwikpen (Bk) SC ACHS [facility] Protocol Magnesium Hydroxide 30 ml 06/05/18 14:48 Milk Of Magnesia PO DAILY PRN Constipation Tamsulosin HCl 0.4 mg 06/06/18 08:30 Flomax PO DAILY@0830 [facility] Warfarin Sodium 3 mg 06/09/18 17:00 Coumadin (Pbkc) PO Alas@1700 [facility] Warfarin Sodium 6 mg 06/05/18 17:00 Coumadin (Pbkc) PO MoTuWeThFrSa@1700 [facility] artery of [place] infarct on mri Assessment/Plan bilateral thalamic infarct, artery of [place] distribution therapeutic inr on coumadin currently tachycardic, ok to rx however suggest keep systolic greater that 120 CTA head and neck pt/ot/sp echo
[2018-06-05] MEDS: 0.9% Normal Saline 1,000 ML 75 ML IV (17:08)
[2018-06-05] MEDS: Metoprolol Tartrate 5 MG/5 ML Vial IV (17:10)
--- NOTE | 2018-06-05 17:14 | EKG12_ITS ---
Test Reason : Blood Pressure : / mmHG Vent. Rate : 139 BPM Atrial Rate : 048 BPM P-R Int : 000 ms QRS Dur : 104 ms QT Int : 318 ms P-R-T Axes : 000 -35 123 degrees QTc Int : 483 ms Supraventricular tachycardia Left axis deviation Left ventricular hypertrophy Nonspecific ST and T wave abnormality Abnormal ECG Confirmed by BEVERLY GOLDSTEIN, CRISTHIAN ([id number]), publishing editor PAVAN STOVER ([id number] on 06/10/2018 1:47:38 PM Referred By: MARRY Confirmed By:CRISTHIAN PAUL MD
[2018-06-05 17:41] LABS: Bedside Glucose 142 mg/dL (70-110)
[2018-06-05] MEDS: Atorvastatin Calcium 80 MG Tablet PO (21:37)
[2018-06-05] MEDS: Atenolol 50 MG Tablet PO (21:38)
[2018-06-05] MEDS: amLODIPine 5 MG Tablet PO (21:38)
[2018-06-05] MEDS: Acetylcysteine (Mucomyst Oral) 20% SOLN 1200 MG PO (21:46)
[2018-06-05 22:21] LABS: Bedside Glucose 134 mg/dL (70-110)
[2018-06-06] VITALS (12 sets, daily range): BP systolic 143–179; BP diastolic 68–93; PULSE 49–78; RESP 16–18; TEMP 36.7–36.9; O2SAT 94–98; BMI 30.8
[2018-06-06 06:55] LABS: Bedside Glucose 100 mg/dL (70-110)
[2018-06-06 07:29] LABS: International Normalized Ratio 2.8
[2018-06-06 07:39] LABS: Anion Gap 8 (5-15); BUN 21 mg/dL (7-18); BUN/Creat Ratio 22.5 RATIO (10-20); Calcium,Total 8.1 mg/dL (8.5-10.1); Chloride 113 mmol/L (98-107); Cholesterol 121 mg/dL (200); Creatinine, Serum 0.93 mg/dL (0.70-1.30); EST Glomerular Filtration Rate 83 mL/min (>60); Est Glom Filt Rate - Afr Amer 100 mL/min (>60); Estimated Creatinine Clearance 70.69 ml/min; Glucose 110 mg/dL (74-106); High Density Lipoprotein 38 mg/dL; Potassium 3.8 mmol/L (3.5-5.1); Sodium Level 145 mmol/L (136-145); Triglycerides 109 mg/dL; Very Low Density Lipoprotein 22 mg/dL (5-40)
[2018-06-06] MEDS: Glimepiride 2 MG Tablet PO (07:55)
[2018-06-06] MEDS: Tamsulosin HCl 0.4 MG Capsule PO (07:55)
[2018-06-06] MEDS: Allopurinol 100 MG Tablet PO (07:55)
--- NOTE | 2018-06-06 09:37 | PCM.PN.HOSP ---
Subjective: Still with slurred speech, no weakness in his upper or lower extremities. Vitals/I&O's: Vital Signs Temp Pulse Resp BP Pulse Ox 98.4 F 49 L 16 150/80 H 98 06/06/18 07:46 06/06/18 07:48 06/06/18 07:46 06/06/18 07:46 06/06/18 07:59 Oxygen Delivery Method Room Air Weight: 227 lb 8.273 oz Body Mass Index (BMI) 30.8 Finger Stick Blood Glucose 119 Intake and Output for Last 24 Hours 06/04/18 06/05/18 06/06/18 23:59 23:59 23:59 Intake Total 0 / 0 1083 / 1083 Output Total 500 / 500 Balance 0 / 0 583 / 583 General: Alert, Oriented x3, Cooperative, No apparent distress HEENT: Atraumatic, PERRLA, EOMI, Normocephalic Oral: Moist Mucosa Neck: Supple, No JVD Lungs: Clear to auscultation, Normal air movement, No rhonchi, No wheeze, No rales Cardiovascular: Regular rate, Regular Rhythm, Normal S1, Normal S2, No murmurs Abdomen: Soft, Non Tender, Non-Distended, No Hepato-splenomegaly Extremities: No edema, Capillary Refill Less than 3 Seconds Neurological: Motor Exam 5/5 strength throughout, Slurred Speech, Sensory exam intact to light touch and pain Psych/Mental Status: Normal Affect, Appropriate Laboratory Results 06/05/18 11:39: POC Glucose 119 H 06/05/18 11:46: WBC 8.5, RBC 4.59 L, Hgb 14.4, Hct 44.4, MCV 96.7 H, MCH 31.4, MCHC 32.4, RDW 14.1, RDW Differential 48.8 H, Plt Count 257, MPV 10.0, Immature Gran % (Auto) 0.200, Neut % (Auto) 68.6, Lymph % (Auto) 21.7, [place] % (Auto) 7.8, Eos % (Auto) 1.5, Baso % (Auto) 0.2, Absolute Neuts (auto) 5.8, Absolute Lymphs (auto) 1.84, Total Counted Not Reportable 06/05/18 11:46: PT 27.3 H, INR 2.5 06/05/18 11:46: Sodium 143, Potassium 4.6, Chloride 110 H, Carbon Dioxide 28.0, Anion Gap 5, BUN 29 H, Creatinine 1.19, Estim Creat Clear Calc 55.25, Est GFR (MDRD) Af Amer 76, Est GFR (MDRD) Non-Af 63, BUN/Creatinine Ratio 24.4 H, Glucose 138 H, Calcium 8.7, Troponin I < 0.015 06/05/18 12:25: Urine Color Yellow, Urine Clarity Clear, Urine pH 6.0, Ur Specific [place] 1.020, Urine Protein 30 H, Urine Glucose (UA) Normal, Urine Ketones Negative, Urine Occult Blood 25 H, Urine Nitrite Negative, Urine Bilirubin Negative, Urine Urobilinogen Normal, Ur Leukocyte Esterase Negative, Urine RBC 0-5 SEEN, Urine WBC 0 SEEN, Ur Squamous Epith Cells 0 SEEN, Urine Bacteria 0 SEEN, Hyaline Casts 0-5 SEEN, Urine Mucus RARE 06/05/18 17:17: POC Glucose 142 H 06/05/18 21:36: POC Glucose 134 H 06/06/18 06:30: PT 30.0 H, INR 2.8 06/06/18 06:30: Sodium 145, Potassium 3.8, Chloride 113 H, Carbon Dioxide 24.0, Anion Gap 8, BUN 21 H, Creatinine 0.93, Estim Creat Clear Calc 70.69, Est GFR (MDRD) Af Amer 100, Est GFR (MDRD) Non-Af 83, BUN/Creatinine Ratio 22.5 H, Glucose 110 H, Calcium 8.1 L, Triglycerides 109, Cholesterol 121, LDL Cholesterol 61, VLDL Cholesterol 22, HDL Cholesterol 38 L 06/06/18 06:39: POC Glucose 100 Current Medications Acetaminophen (Tylenol) 650 mg PO Q6H PRN PRN PRN Reason: Headache/Temp>99F Acetylcysteine (Mucomyst) 1,200 mg PO BID [facility] Stop: 06/07/18 10:01 Last Admin: 06/05/18 21:46 Dose: 1,200 mg [facility]opurinol (Zyloprim) [facility] Last Admin: 06/06/18 07:55 Dose: 100 mg Amlodipine Besylate (Norvasc) 5 mg PO QHS [facility] Last Admin: 06/05/18 21:38 Dose: 5 mg Atenolol (Tenormin (Beta Britt)) 50 mg PO QHS [facility] Last Admin: 06/05/18 21:38 Dose: 50 mg Atorvastatin Calcium (Lipitor) 80 mg PO QHS [facility] Last Admin: 06/05/18 21:37 Dose: 80 mg Glimepiride (Amaryl) 2 mg PO DAILYCM [facility] Last Admin: 06/06/18 07:55 Dose: 2 mg Insulin Human Lispro (Humalog Kwikpen (Bkc)) 0 unit SC ACHS [facility]; Protocol Last Admin: 06/06/18 07:58 Dose: Not Given Magnesium Hydroxide (Milk Of Magnesia) 30 ml PO DAILY PRN PRN Reason: Constipation Tamsulosin HCl (Flomax) 0.4 mg PO DAILY@0830 [facility] Last Admin: 06/06/18 07:55 Dose: 0.4 mg Warfarin Sodium (Coumadin (Pbkc)) 3 mg PO Alas@1700 [facility] Warfarin Sodium (Coumadin (Pbkc)) 6 mg PO MoTuWeThFrSa@1700 [facility] Last Admin: 06/05/18 18:33 Dose: 6 mg Medical Necessity - Tobacco Use Smoking Status: Never smoker Tobacco Use: Cigarettes Assessment/Plan 1. Bilateral thalamic infarcts -Presenting mostly with dysarthria -CTA of head and neck pending -Echo pending -PT/OT, and speech therapy pending as well -Permissive hypertension -Currently on Coumadin for mechanical valve and his INR is therapeutic, he will likely need to be on aspirin or Plavix as well after the stroke. -Continue with statin therapy 2. Hypertension/status post aortic valve replacement -Continue with Coumadin maintain INR between 2 and 3 -We will hold Norvasc and atenolol for now -Echo pending 3. Gout -Stable -Can you help urinal 4. DM 2 -Continue with Accu-Cheks and sliding scale insulin -Hold glimepiride DVT: Coumadin Code Visit Inpatient E&M: 05065 Subs Hosp L2
--- NOTE | 2018-06-06 09:44 | PN_ITS ---
Subjective: Still with slurred speech, no weakness in his upper or lower extremities. Vitals/I&O's: Vital Signs Temp Pulse Resp BP Pulse Ox 98.4 F 49 L 16 150/80 H 98 06/06/18 07:46 06/06/18 07:48 06/06/18 07:46 06/06/18 07:46 06/06/18 07:59 Oxygen Delivery Method Room Air Weight: 227 lb 8.273 oz Body Mass Index (BMI) 30.8 Finger Stick Blood Glucose 119 Intake and Output for Last 24 Hours 06/04/18 06/05/18 06/06/18 23:59 23:59 23:59 Intake Total 0 / 0 1083 / 1083 Output Total 500 / 500 Balance 0 / 0 583 / 583 General: Alert, Oriented x3, Cooperative, No apparent distress HEENT: Atraumatic, PERRLA, EOMI, Normocephalic Oral: Moist Mucosa Neck: Supple, No JVD Lungs: Clear to auscultation, Normal air movement, No rhonchi, No wheeze, No rales Cardiovascular: Regular rate, Regular Rhythm, Normal S1, Normal S2, No murmurs Abdomen: Soft, Non Tender, Non-Distended, No Hepato-splenomegaly Extremities: No edema, Capillary Refill Less than 3 Seconds Neurological: Motor Exam 5/5 strength throughout, Slurred Speech, Sensory exam intact to light touch and pain Psych/Mental Status: Normal Affect, Appropriate Laboratory Results 06/05/18 11:39: POC Glucose 119 H 06/05/18 11:46: WBC 8.5, RBC 4.59 L, Hgb 14.4, Hct 44.4, MCV 96.7 H, MCH 31.4, MCHC 32.4, RDW 14.1, RDW Differential 48.8 H, Plt Count 257, MPV 10.0, Immature Gran % (Auto) 0.200, Neut % (Auto) 68.6, Lymph % (Auto) 21.7, [place] % (Auto) 7.8, Eos % (Auto) 1.5, Baso % (Auto) 0.2, Absolute Neuts (auto) 5.8, Absolute Lymphs (auto) 1.84, Total Counted Not Reportable 06/05/18 11:46: PT 27.3 H, INR 2.5 06/05/18 11:46: Sodium 143, Potassium 4.6, Chloride 110 H, Carbon Dioxide 28.0, Anion Gap 5, BUN 29 H, Creatinine 1.19, Estim Creat Clear Calc 55.25, Est GFR (MDRD) Af Amer 76, Est GFR (MDRD) Non-Af 63, BUN/Creatinine Ratio 24.4 H, Glucose 138 H, Calcium 8.7, Troponin I < 0.015 06/05/18 12:25: Urine Color Yellow, Urine Clarity Clear, Urine pH 6.0, Ur Specific [place] 1.020, Urine Protein 30 H, Urine Glucose (UA) Normal, Urine Ketones Negative, Urine Occult Blood 25 H, Urine Nitrite Negative, Urine Bilirubin Negative, Urine Urobilinogen Normal, Ur Leukocyte Esterase Negative, Urine RBC 0-5 SEEN, Urine WBC 0 SEEN, Ur Squamous Epith Cells 0 SEEN, Urine Bacteria 0 SEEN, Hyaline Casts 0-5 SEEN, Urine Mucus RARE 06/05/18 17:17: POC Glucose 142 H 06/05/18 21:36: POC Glucose 134 H 06/06/18 06:30: PT 30.0 H, INR 2.8 06/06/18 06:30: Sodium 145, Potassium 3.8, Chloride 113 H, Carbon Dioxide 24.0, Anion Gap 8, BUN 21 H, Creatinine 0.93, Estim Creat Clear Calc 70.69, Est GFR (MDRD) Af Amer 100, Est GFR (MDRD) Non-Af 83, BUN/Creatinine Ratio 22.5 H, Glucose 110 H, Calcium 8.1 L, Triglycerides 109, Cholesterol 121, LDL Cholesterol 61, VLDL Cholesterol 22, HDL Cholesterol 38 L 06/06/18 06:39: POC Glucose 100 Current Medications Acetaminophen (Tylenol) 650 mg PO Q6H PRN PRN PRN Reason: Headache/Temp>99F Acetylcysteine (Mucomyst) 1,200 mg PO BID [facility] Stop: 06/07/18 10:01 Last Admin: 06/05/18 21:46 Dose: 1,200 mg [facility]op[facility] ([facility]rim) [facility] Last Admin: 06/06/18 07:55 Dose: 100 mg Amlodipine Besylate (Norvasc) 5 mg PO QHS [facility] Last Admin: 06/05/18 21:38 Dose: 5 mg Atenolol (Tenormin (Beta Britt)) 50 mg PO QHS [facility] Last Admin: 06/05/18 21:38 Dose: 50 mg Atorvastatin Calcium (Lipitor) 80 mg PO QHS [facility] Last Admin: 06/05/18 21:37 Dose: 80 mg Glimepiride (Amaryl) 2 mg PO DAILYCM [facility] Last Admin: 06/06/18 07:55 Dose: 2 mg Insulin Human Lispro (Humalog Kwikpen (Bkc)) 0 unit SC ACHS [facility]; Protocol Last Admin: 06/06/18 07:58 Dose: Not Given Magnesium Hydroxide (Milk Of Magnesia) 30 ml PO DAILY PRN PRN Reason: Constipation Tamsulosin HCl (Flomax) 0.4 mg PO DAILY@0830 [facility] Last Admin: 06/06/18 07:55 Dose: 0.4 mg Warfarin Sodium (Coumadin (Pbkc)) 3 mg PO Alas@1700 [facility] Warfarin Sodium (Coumadin (Pbkc)) 6 mg PO MoTuWeThFrSa@1700 [facility] Last Admin: 06/05/18 18:33 Dose: 6 mg Medical Necessity - Tobacco Use Smoking Status: Never smoker Tobacco Use: Cigarettes Assessment/Plan 1. Bilateral thalamic infarcts -Presenting mostly with dysarthria -CTA of head and neck pending -Echo pending -PT/OT, and speech therapy pending as well -Permissive hypertension -Currently on Coumadin for mechanical valve and his INR is therapeutic, he will likely need to be on aspirin or Plavix as well after the stroke. -Continue with statin therapy 2. Hypertension/status post aortic valve replacement -Continue with Coumadin maintain INR between 2 and 3 -We will hold Norvasc and atenolol for now -Echo pending 3. Gout -Stable -Can you help urinal 4. DM 2 -Continue with Accu-Cheks and sliding scale insulin -Hold glimepiride DVT: Coumadin Code Visit Inpatient E&M: 65086 Subs Hosp L2
[2018-06-06] MEDS: Acetylcysteine (Mucomyst Oral) 20% SOLN 1200 MG PO (10:04)
--- NOTE | 2018-06-06 10:07 | NURSING ---
Echo completed at bedside. Pt tolerated well. Up to BR with walker and 1 assist, tolerated well.
--- NOTE | 2018-06-06 10:45 | NURSING ---
Speech therapy here evaluating pt, pt may have mechanical soft diet. Pt taken down to CT for scan.
--- NOTE | 2018-06-06 11:10 | NURSING ---
Pt returned from CT. BS 148.
[2018-06-06 11:15] LABS: Bedside Glucose 148 mg/dL (70-110)
--- NOTE | 2018-06-06 11:23 | PCM.PN.NEU ---
Subjective: remains dysarthric, improved. no other complaints - Physical Exam General: Alert, Oriented x3, Cooperative, No apparent distress HEENT: PERRLA, EOMI Neurological: Cranial nerves II-XII grossly intact, Slurred Speech Psych/Mental Status: Normal Affect Vital Signs Temp Pulse Resp BP Pulse Ox 36.9 C 49 L 16 150/80 H 98 06/06/18 07:46 06/06/18 07:48 06/06/18 07:46 06/06/18 07:46 06/06/18 07:59 Oxygen Delivery Method Room Air Weight: 103.2 kg Body Mass Index (BMI) 30.8 Finger Stick Blood Glucose 119 Intake and Output for Last 24 Hours 06/04/18 06/05/18 06/06/18 23:59 23:59 23:59 Intake Total 0 / 0 1083 / 1083 Output Total 500 / 500 Balance 0 / 0 583 / 583 Laboratory Tests Past 24 Hrs 06/05/18 06/05/18 06/05/18 11:46 11:46 11:46 WBC 8.5 RBC 4.59 L Hgb 14.4 Hct 44.4 MCV 96.7 H MCH 31.4 MCHC 32.4 RDW 14.1 RDW Differential 48.8 H Plt Count 257 MPV 10.0 Immature Gran % (Auto) 0.200 Neut % (Auto) 68.6 Lymph % (Auto) 21.7 [place] % (Auto) 7.8 Eos % (Auto) 1.5 Baso % (Auto) 0.2 Absolute Neuts (auto) 5.8 Absolute Lymphs (auto) 1.84 Total Counted Not Reportable PT 27.3 H INR 2.5 Sodium 143 Potassium 4.6 Chloride 110 H Carbon Dioxide 28.0 Anion Gap 5 BUN 29 H Creatinine 1.19 Estim Creat Clear Calc 55.25 Est GFR (MDRD) Af Amer 76 Est GFR (MDRD) Non-Af 63 BUN/Creatinine Ratio 24.4 H Glucose 138 H Calcium 8.7 Troponin I < 0.015 Triglycerides Cholesterol LDL Cholesterol VLDL Cholesterol HDL Cholesterol Urine Color Urine Clarity Urine pH Ur Specific [place] Urine Protein Urine Glucose (UA) Urine Ketones Urine Occult Blood Urine Nitrite Urine Bilirubin Urine Urobilinogen Ur Leukocyte Esterase Urine RBC Urine WBC Ur Squamous Epith Cells Urine Bacteria Hyaline Casts Urine Mucus 06/05/18 06/06/18 06/06/18 12:25 06:30 06:30 WBC RBC Hgb Hct MCV MCH MCHC RDW RDW Differential Plt Count MPV Immature Gran % (Auto) Neut % (Auto) Lymph % (Auto) [place] % (Auto) Eos % (Auto) Baso % (Auto) Absolute Neuts (auto) Absolute Lymphs (auto) Total Counted PT 30.0 H INR 2.8 Sodium 145 Potassium 3.8 Chloride 113 H Carbon Dioxide 24.0 Anion Gap 8 BUN 21 H Creatinine 0.93 Estim Creat Clear Calc 70.69 Est GFR (MDRD) Af Amer 100 Est GFR (MDRD) Non-Af 83 BUN/Creatinine Ratio 22.5 H Glucose 110 H Calcium 8.1 L Troponin I Triglycerides 109 Cholesterol 121 LDL Cholesterol 61 VLDL Cholesterol 22 HDL Cholesterol 38 L Urine Color Yellow Urine Clarity Clear Urine pH 6.0 Ur Specific [place] 1.020 Urine Protein 30 H Urine Glucose (UA) Normal Urine Ketones Negative Urine Occult Blood 25 H Urine Nitrite Negative Urine Bilirubin Negative Urine Urobilinogen Normal Ur Leukocyte Esterase Negative Urine RBC 0-5 SEEN Urine WBC 0 SEEN Ur Squamous Epith Cells 0 SEEN Urine Bacteria 0 SEEN Hyaline Casts 0-5 SEEN Urine Mucus RARE POC Glucose 06/06/18 06/06/18 06/05/18 11:08 06:39 21:36 POC Glucose 148 H 100 134 H 06/05/18 06/05/18 17:17 11:39 POC Glucose 142 H 119 H Medical Necessity - Tobacco Use Smoking Status: Never smoker Tobacco Use: Cigarettes Assessment/Plan bilateral thalamic infarct, artery of [place] distribution therapeutic inr on coumadin currently tachycardic, ok to rx however suggest keep systolic greater that 120 CTA head and neck: reviewed, unremarkeable pt/ot/sp echo
--- NOTE | 2018-06-06 11:55 | CASEMGMT ---
Addendum entered by Jaci Mathis 06/06/18 17:07: 1230: after therapy evals completed, both PT and OT recommend further skilled therapy. KISHA, Janet, notified. Original Note: ARCADIO JARRELL NOTE: To room for initial assessment. Pt resting in bed. Introduced self and role of ARCADIO JARRELL. Pt's brother at bedside and son, Armando, came in during assessment. Pt states he is having difficulty being able to stand up, stating I do okay after I get up, but I can't get up very well. Pt states he lives alone and is agreeable to going somewhere on discharge for therapy. Son, Armando, states he is concerned about pt going home alone. PT and OT staff @ door, getting ready to do assessments. Will have pt evaluated by therapy and see what recommendations are made. Taylor RIVERA RN, CM
--- NOTE | 2018-06-06 12:20 | NURSING ---
PT here to see the patient. Family at bedside. regional sales manager was in room earlier talking to family.
--- NOTE | 2018-06-06 13:38 | CASEMGMT ---
Per RN CM she spoke with therapy and patient would benefit from going somewhere for rehab at d/c. SW spoke with patient and family and they would like him to go to [facility] 4th floor rehab if possible. KISHA spoke with Sheree and she is conferring with Dr Shen. Janet [employer]
--- NOTE | 2018-06-06 14:31 | CASEMGMT ---
Inpatient Rehab is able to take patient today. Physician was notified as well as RN and patient's son, Armando. SW told him that the inpatient rehab unit is on the 4th floor. He thanked SW. SW did not notify patient as he was sleeping. Plan: [facility] 4th floor rehab unit Janet RESENDIZ
--- NOTE | 2018-06-06 14:32 | NURSING ---
Janet from [employer] said pt will be going to rehab 4th floor today at some point. Pts son notified.
--- NOTE | 2018-06-06 14:48 | CT_ITS ---
STUDY: CTA NECK WITH AND WITHOUT CONTRAST REASON FOR EXAM: Male, 78 years old. Fall, slurred speech, blurred vision. RADIATION DOSAGE (If Supplied By Facility): CTDIvol = ( 31.23 ) mGy, DLP = ( 1592.64 ) mGycm TECHNIQUE: CT angiography with multi-detector data acquisition was performed from the aortic arch to the skull base prior to and after intravenous administration of 100CC ml of Isovue 300 contrast. MIP images were reconstructed from the axial data set. Post-processing of the angiographic images was performed, with multiplanar reformation and 3D reconstruction. Individualized dose optimization techniques were used for this CT. COMPARISON: None. FINDINGS: Incidental note of a 6 mm heterogeneous lesion in the anterior right lobe of thyroid. A well-defined 7 mm low density lesion suggesting a cyst seen at the posterior margin of the right thyroid lobe and thyroid isthmus. There are multilevel spondylotic degenerative changes of the visualized spine. AORTIC ARCH: There is atherosclerotic calcific plaque formation of the aortic arch and great vessels arising from the aortic arch, without a hemodynamically significant stenosis. There is a normal anatomic origin of the brachiocephalic, left common carotid, and left subclavian arteries. Atherosclerotic calcific plaquing also seen at the origin of the right subclavian artery RIGHT CAROTID ARTERIES: There is diffuse calcific atherosclerotic plaque formation of the mid to distal common carotid artery, but without a hemodynamically significant stenosis. There is extensive calcific atherosclerotic plaque formation of the right carotid bulb without a hemodynamically significant stenosis. There is extensive calcific atherosclerotic plaque formation of the origin of the right internal carotid artery with less than 50% cross sectional diameter stenosis. Normal visualized cervical portion of the right internal carotid artery. There is mild atherosclerotic plaque formation of the origin of the right external carotid artery with less than 50% cross sectional diameter stenosis. LEFT CAROTID ARTERIES: There is diffuse calcific atherosclerotic plaque formation of the mid to distal common carotid artery, with approximately 50% cross-sectional stenosis at its distal third. There is extensive calcific atherosclerotic plaque formation of the carotid bulb without a hemodynamically significant stenosis. There is extensive calcific atherosclerotic plaque formation of the origin of the left internal carotid artery with up to 50% cross sectional diameter stenosis. Normal visualized cervical portion of the left internal carotid artery. There is mild atherosclerotic plaque formation of the origin of the left external carotid artery with less than 50% cross sectional diameter stenosis. VERTEBRAL ARTERIES: There is calcific atherosclerotic plaque formation at the ostium of the right vertebral artery with degree of stenosis difficult to define secondary to vessel tortuosity, but likely 50-75%. There is also atherosclerotic calcific plaque at the takeoff of the smaller caliber, patent left vertebral artery with less than 50% stenosis. CT/CTA Neck W/WO Contrast IMPRESSION: 1. Extensive atherosclerotic calcific arterial plaquing. 2. Less than 50% cross-sectional stenosis of the right internal carotid artery. 3. Approximately 50% cross-sectional stenosis at the distal third of the left common carotid artery, without up to 50% cross sectional stenosis at the origin of the left internal carotid artery. 4. 50-75% atherosclerotic stenosis at the takeoff of the right vertebral artery. Less than 50% stenosis at the origin of the smaller caliber left vertebral artery. Electronically Signed: Jerald Mullins MD at 16:32 EST , Service support ,
--- NOTE | 2018-06-06 14:48 | CT_ITS ---
STUDY: CTA OF THE BRAIN REASON FOR EXAM: Male, 78 years old. Fall, slurred speech, blurred vision. History of aortic valve replacement. RADIATION DOSAGE (If Supplied By Facility): CTDIvol = ( 31.23 ) mGy, DLP = ( 1592.64 ) mGycm TECHNIQUE: CT angiography was performed with a multi-detector CT scanner. Data acquisition was obtained from the skull base through the vertex following intravenous administration of 100 ml of Isovue-370. MIP images were reconstructed from the axial data set. Post-processing of the angiographic images was performed, with multiplanar reformation and 3D reconstruction. Individualized dose optimization techniques were used for this CT. COMPARISON: None. FINDINGS: Normal bilateral petrous carotid arteries. There is calcified plaque formation of the right cavernous carotid artery, with a mild stenosis (less than 50%). There is calcified plaque formation of the left cavernous carotid artery, with a mild stenosis (less than 50%). Normal A1 segment of the right anterior cerebral artery. Normal A1 segment of the left anterior cerebral artery. Normal intact anterior communicating artery (ACOM). Normal bilateral A2 segments of the anterior cerebral arteries. Normal M1 and M2 segments of the right middle cerebral artery, with a normal M1 bifurcation. Normal M1 and M2 segments of the left middle cerebral artery, with a normal M1 bifurcation. There is a persistent origin of the right posterior cerebral artery with absence of the posterior communicating artery (PCOM). There is a persistent origin of the left posterior cerebral artery with absence of the posterior communicating artery (PCOM). Normal right vertebral artery. The left is only 1-2 mm caliber. Hypoplastic basilar artery with only 1-2 mm caliber. The visualized bilateral superior cerebellar (SCA) arteries are normal. There is hypoplastic development of the P1 segments of the bilateral posterior cerebral arteries with severely atretic segments. Normal P2 and visualized P3 segments of the bilateral posterior cerebral arteries. There is no demonstrated aneurysm of the native of [place]. There is mild cerebral atrophy with widening of the extra-axial spaces and ventricular dilatation. There are areas of decreased attenuation within the white matter tracts of the supratentorial brain, consistent with microvascular disease changes. Ill-defined decreased density in the bilateral thalami also consistent with chronic ischemic change. There are small punctate calcifications of the basal ganglia which are seen in the aging brain as a normal variant. CT/CTA Head W/WO Contrast IMPRESSION: 1. Chronic involutional and ischemic changes of the brain, as noted. 2. Atherosclerotic calcifications of the cavernous segments of the internal carotid arteries without significant stenosis. The anterior intracranial arterial circulation is otherwise intact. 3. Normal patent right vertebral artery. Notably hypoplastic distal left vertebral and basilar arteries. 4. The P1 segments of the bilateral posterior cerebral arteries are severely atretic. There is bilateral persistent origin of the posterior cerebral arteries, with normal visualized P2 and P3 segments. Electronically Signed: Jerald Mullins MD at 16:04 EST , Service support ,
--- NOTE | 2018-06-06 15:23 | DCINST_ITS ---
- Discharge Diagnoses Current Active Problems: Current Active and Chronic Problems History of GI bleed (Chronic) You will use the following diet at home:: Calorie/Carbohydrate Controlled (specify 1200, 1400, etc), Cardiac Your food should be the consistency of: Mechanical soft (ground) Your liquids should be the consistency of: Regular/Thin Discharge Activity: Return to Normal Activity Allergies/Adverse Reactions: Allergies No Known Allergies Allergy (Verified 06/05/18 12:15) Medications to take at Discharge Allopurinol [Zyloprim] 100 mg PO DAILYCM 05/27/15 Glimepiride [Amaryl] 2 mg PO DAILY 05/27/15 Multivitamins,Therapeutic [Multivitamin] 1 tablet PO DAILY 05/27/15 Antacid Liquid 10 ml PO 4X/DAY PRN PRN 06/17/15 Tamsulosin HCl [Flomax] 0.4 mg PO DAILY 06/17/15 Warfarin Sodium 3 mg PO MILLIGAN 06/05/18 Warfarin Sodium 6 mg PO MOTUWETHFRSA 06/05/18 Amlodipine [Norvasc] 5 mg PO DAILY #0 06/06/18 Atenolol [Tenormin] 50 mg PO QHS #0 06/06/18 Atorvastatin Calcium [Lipitor] 80 mg PO QHS tablet 06/06/18 Primary Care Physician: Andres Arce DO [Primary Care Provider] - Please follow up with your Primary Care Physician in: 3-5 days Test Results: Test results from this visit will be discussed in further detail at your follow- up appointment, if applicable.
--- NOTE | 2018-06-06 15:26 | NURSING ---
Pt sleeping quietly. Call light within reach and bed alarms on.
--- NOTE | 2018-06-06 15:29 | DS.PCM_ITS ---
Discharge Date and Diagnosis Date of Admission: 06/05/18 Date of Discharge: 06/06/18 - Secondary Discharge Diagnosis Chronic Problems History of GI bleed (Chronic) Chronic anticoagulation (Chronic) HTN (hypertension) (Chronic) History of aortic valve replacement (Chronic) Diabetes mellitus, type 2 (Chronic) Gout (Chronic) Hospital Course and Treatment Imaging Results: 06/06/18 14:48 CTA Head W/WO Contrast [CT] Urgent CTA Neck W/WO Contrast [CT] Urgent CT Brain: IMPRESSION: Normal unenhanced CT scan of the brain. MRI Brain: IMPRESSION: Bilateral recent, acute or subacute, thalamic infarcts suggesting Artery of [place]heron occlusion. Consults: Neurology Operations: None Procedures: 2-D Echocardiogram Summary of Care Provided: Per HPI: The patient is a 78 year old M with past medical history as mentioned above presented to the emergency room because of fall and slurred speech as well as generalized weakness. The patient is a poor informant and was not able to provide detailed history. Patient's son was at the bedside and they provide most of the information. According to patient's son, the son spoke with his father this morning around 8 AM and he was fine. After this phone call, patient apparently had a mechanical fall and he could not get up off the floor. Patient denied any head injury or loss of consciousness. The son attempted to call his father again twice but the father did not answer the phone call. The son came to see his father and he notes that he has slurred speech and patient stated that his vision is blurry as well. Patient denied focal arm or leg weakness. He denied numbness or tingling. Denies chest pain or shortness of breath. Denied dose of consciousness. He had a history of aortic valve replacement with prosthetic valve and he has been on Coumadin for anti- coagulation. He had a history of type 2 diabetes mellitus and his blood sugars seem to be under controlled with glimepiride. He had a history of hypertension which also has been under control with Norvasc and atenolol. In the emergency department, his blood pressure was slightly elevated, other vital signs were stable. His NIH score was 1 for mild dysarthria. Routine blood work was unremarkable. His EKG revealed normal sinus rhythm with first-degree AV block, UT interval of 280 ms, no ischemic changes. Troponin was negative. CT scan brain without contrast showed no acute findings. Chest x-ray showed no acute findings. He is being admitted for fall, slurred speech/blurred vision with concern of TIA. Hospital Course: 1. Bilateral thalamic infarcts/dysarthria- 78-year-old male who fell at home and was on the ground for little bit of time was found by his son and had slurred speech and blurry vision though no focal weakness in his arms or legs. He had an MRI which demonstrated bilateral thalamic infarcts and no other changes. Neurology was consulted and recommended patient be transferred to inpatient rehab at the moment. We will continue his Coumadin for his mechanical valve and maintain his INR. Speech evaluated patient and felt that he needed a mechanical soft diet with thin liquids. CTAs of the head and neck are still pending. We will continue with his statin therapy though will increase the dose from 10 mg to 80 mg. 2. Hypertension/status post aortic valve replacement -allow permissive hypertension at the moment. We will hold his Norvasc and his atenolol for the next 24-48 hours. We will continue with his Coumadin to maintain INR between 2 and 3. 3. His other medical diagnoses were evaluated and his home medications were continued were appropriate - Physical Exam Vital Signs Temp Pulse Resp BP Pulse Ox 98.5 F 78 16 157/77 H 97 06/06/18 11:38 06/06/18 11:38 06/06/18 11:38 06/06/18 11:38 06/06/18 11:38 Oxygen Delivery Method Room Air Weight: 227 lb 8.273 oz Body Mass Index (BMI) 30.8 Finger Stick Blood Glucose 119 Intake and Output for Last 24 Hours 06/04/18 06/05/18 06/06/18 23:59 23:59 23:59 Intake Total 0 / 0 1323 / 1323 Output Total 600 / 600 Balance 0 / 0 723 / 723 Laboratory Tests Past 24 Hrs 06/06/18 06/06/18 06:30 06:30 PT 30.0 H INR 2.8 Sodium 145 Potassium 3.8 Chloride 113 H Carbon Dioxide 24.0 Anion Gap 8 BUN 21 H Creatinine 0.93 Estim Creat Clear Calc 70.69 Est GFR (MDRD) Af Amer 100 Est GFR (MDRD) Non-Af 83 BUN/Creatinine Ratio 22.5 H Glucose 110 H Calcium 8.1 L Triglycerides 109 Cholesterol 121 LDL Cholesterol 61 VLDL Cholesterol 22 HDL Cholesterol 38 L POC Glucose 06/06/18 06/06/18 06/05/18 11:08 06:39 21:36 POC Glucose 148 H 100 134 H 06/05/18 17:17 POC Glucose 142 H Discharge Activity: Return to Normal Activity Home Medications: Medications to take at Discharge Allopurinol [Zyloprim] 100 mg PO DAILYCM 05/27/15 Glimepiride [Amaryl] 2 mg PO DAILY 05/27/15 Multivitamins,Therapeutic [Multivitamin] 1 tablet PO DAILY 05/27/15 Antacid Liquid 10 ml PO 4X/DAY PRN PRN 06/17/15 Tamsulosin HCl [Flomax] 0.4 mg PO DAILY 06/17/15 Warfarin Sodium 3 mg PO MILLIGAN 06/05/18 Warfarin Sodium 6 mg PO MOTUWETHFRSA 06/05/18 Amlodipine [Norvasc] 5 mg PO DAILY #0 06/06/18 Atenolol [Tenormin] 50 mg PO QHS #0 06/06/18 Atorvastatin Calcium [Lipitor] 80 mg PO QHS tablet 06/06/18 Primary Care Physician: Andres Arce DO [Primary Care Provider] - Please follow up with your Primary Care Physician in: 3-5 days Disposition: Inpt Rehab Unit/Facility Minutes spent on discharge:: 35 Patient Condition:: Good Medical Necessity - Tobacco Use Smoking Status: Never smoker Tobacco Use: Non-smoker Meaningful Use Info Meaningful Use Diagnoses (Choose all that apply): Ischemic CVA - CVA Therapy Assessed for PT,OT and/or ST?: Yes - Ischemic Stroke Antithrombotic order at d/c?: No Reason antithrombotic not ordered: Medical Contraindication Dx of Atrial fib/flutter?: No Anticoagulant at discharge?: Yes Statins at discharge?: Yes Primary Dx Acute Ischemic CVA?: Yes IV tPA ordered during stay?: No Reason IV t-PA not ordered: Treatment not Indicated Code Visit OBSV E&M: 47148 Observation care discharge
--- NOTE | 2018-06-06 15:29 | CASEMGMT ---
ARCADIO JARRELL NOTE: REED form reviewed with pt. States he has no questions. Form signed by pt. Copy placed on chart and pt given original. Taylor RIVERA RN CM
[2018-06-06 16:11] LABS: Bedside Glucose 123 mg/dL (70-110)
--- NOTE | 2018-06-06 16:26 | NURSING ---
REPORT CALLED TO SELENE RN IN REHAB AND PT TO BE TRANSFERRD TO 4TH FLOOR. FAMILY AT BEDSIDE. VSS AND BS 123.
== END 2018-06-06 15:23 | disposition skilled nursing facility (03) ==
LOC: ED 13:29 → PCU 13:39
PROVIDERS: Admitting Provider Hospitalist; Emergency Provider Emergency Medicine; Family Provider Preventive Medicine Occupational Medicine; PCP Preventive Medicine Occupational Medicine; Visit Provider Family Medicine
DX: R47.1 Dysarthria and anarthria (principal); M10.9 Gout, unspecified; Z95.2 Presence of prosthetic heart valve; I10 Essential (primary) hypertension; E11.9 Type 2 diabetes mellitus without complications; Z79.899 Other long term (current) drug therapy; Z79.01 Long term (current) use of anticoagulants; Z79.84 Long term (current) use of oral hypoglycemic drugs; R29.701 NIHSS score 1; T45.515A Adverse effect of anticoagulants, initial encounter; Z87.891 Personal history of nicotine dependence; I44.0 Atrioventricular block, first degree; H53.8 Other visual disturbances
CPT/HCPCS: 36415; 70450; 70496; 70498; 70551; 71045; 80048; 80061; 81001; 82962; 84484; 85025; 85610; 93005; 93306; 96361; 96374; 97162; 97166; 99218; 99285; J7030; Q9957; Q9967; A4216; C8929; G0378

== ENCOUNTER 2018-06-06 17:12 | Inpatient (IN) | payer MEDICARE, SELFPAY ==
[2018-06-06 17:12] VITALS: BMI 31.8
[2018-06-06 17:23] VITALS: BP 147/93; PULSE 72; RESP 16; TEMP 36.8; O2SAT 95; BMI 30.5
[2018-06-06] MEDS: amLODIPine 5 MG Tablet PO (19:09)
[2018-06-06 19:20] LABS: Magnesium 1.9 mg/dL (1.6-2.6)
[2018-06-06 20:20] VITALS: BMI 30.5
[2018-06-06 20:27] VITALS: BMI 30.6
[2018-06-06] MEDS: Senna/Docusate Sodium 1 Tablet 2 TABLET PO (21:04)
[2018-06-06] MEDS: Atenolol 50 MG Tablet PO (21:04)
[2018-06-06] MEDS: Atorvastatin Calcium 80 MG Tablet PO (21:04)
[2018-06-06 21:16] LABS: Bedside Glucose 137 mg/dL (70-110)
[2018-06-06 21:26] VITALS: BP 139/76; PULSE 72; RESP 17; TEMP 36.9; O2SAT 94
[2018-06-07 06:13] LABS: International Normalized Ratio 3.4; Prothrombin Time (Protime)PT. 34.6 SECONDS (11.7-14.9)
[2018-06-07 06:17] LABS: Absolute Lymphocyte Count 2.51 X10^3/ul (0.83-4.51); Absolute Neutrophil Count 4.5 X10^3/uL (2.0-7.7); Basophil# 0.02 X10^3/uL; Basophil% 0.2 % (0-1); Eosinophil# 0.28 X10^3/uL; Eosinophils% 3.5 % (0-5); Hematocrit 40.3 % (40-54); Hemoglobin 13.1 g/dl (13.0-16.5); Lymphocyte # 2.51 X10^3/ul (4.0); Lymphocyte % 31.3 % (19-41); Mean Corp Hgb Conc 32.5 g/gl (32-36); Mean Corpuscular Hgb 31.3 pg (27.0-32.0); Mean Corpuscular Volume 96.4 fL (80-94); Mean Platelet Vol. 10.4 fl (6.2-12.0); Monocyte% 8.7 % (0-10); Neutrophil % 56.1 % (47-70); Platelet Count 253 K/mm3 (150-450); RBC Distribution Width SD 47.7 fl (35.1-43.9); Red Blood Count 4.18 M/mm3 (4.6-6.2)
[2018-06-07 06:20] LABS: POSITIVE COUNT NO; POSITIVE DIFFERENTIAL NO; POSITIVE MORPHOLOGY NO
[2018-06-07 06:31] LABS: Anion Gap 8 (5-15); BUN 21 mg/dL (7-18); BUN/Creat Ratio 19.3 RATIO (10-20); Calcium,Total 8.2 mg/dL (8.5-10.1); Chloride 112 mmol/L (98-107); Creatinine, Serum 1.09 mg/dL (0.70-1.30); EST Glomerular Filtration Rate 69 mL/min (>60); Est Glom Filt Rate - Afr Amer 84 mL/min (>60); Estimated Creatinine Clearance 60.32 ml/min; Glucose 85 mg/dL (74-106); Phosphorus 3.3 mg/dL (2.5-4.9); Sodium Level 145 mmol/L (136-145)
--- NOTE | 2018-06-07 07:40 | PCM.PN.HOSP ---
Subjective: 78-year-old male who presented after a fall with weakness and slurred speech. Patient is presentation to the acute side of the hospital, patient was found to have bilateral thalamic infarcts on MRI, CTA of his head and neck showed less than 50% stenosis of his right and left internal carotid arteries, and a 50-75% stenosis at the takeoff of the right vertebral artery. Echo was normal with an EF of 65%. He is doing well today. His slurring seems to have improved a little bit he continues to deny any weakness in his upper or lower extremities. Vitals/I&O's: Vital Signs Temp Pulse Resp BP Pulse Ox 98.5 F 72 17 139/76 H 94 06/06/18 21:26 06/06/18 21:26 06/06/18 21:26 06/06/18 21:26 06/06/18 21:26 Oxygen Delivery Method Room Air Weight: 225 lb 7.468 oz Body Mass Index (BMI) 30.5 Finger Stick Blood Glucose 119 Intake and Output for Last 24 Hours 06/05/18 06/06/18 06/07/18 23:59 23:59 23:59 Intake Total 260 / 260 60 / 60 Output Total 200 / 200 500 / 500 Balance 60 / 60 -440 / -440 General: Alert, Oriented x3, Cooperative, No apparent distress HEENT: Atraumatic, PERRLA, EOMI, Normocephalic Oral: Moist Mucosa Neck: Supple, No JVD Lungs: Clear to auscultation, Normal air movement, No rhonchi, No wheeze, No rales Cardiovascular: Regular rate, Regular Rhythm, Normal S1, Normal S2, No murmurs Abdomen: Soft, Non Tender, Non-Distended, No Hepato-splenomegaly Extremities: No edema, Capillary Refill Less than 3 Seconds Neurological: Motor Exam 5/5 strength throughout, Slurred Speech, Sensory exam intact to light touch and pain Psych/Mental Status: Normal Affect, Appropriate Laboratory Results 06/06/18 06:30: Magnesium 1.9 06/06/18 21:02: POC Glucose 137 H 06/07/18 05:35: PT 34.6 H, INR 3.4 06/07/18 05:35: WBC 8.0, RBC 4.18 L, Hgb 13.1, Hct 40.3, MCV 96.4 H, MCH 31.3, MCHC 32.5, RDW 14.0, RDW Differential 47.7 H, Plt Count 253, MPV 10.4, Immature Gran % (Auto) 0.200, Neut % (Auto) 56.1, Lymph % (Auto) 31.3, [place] % (Auto) 8.7, Eos % (Auto) 3.5, Baso % (Auto) 0.2, Absolute Neuts (auto) 4.5, Absolute Lymphs (auto) 2.51, Total Counted Not Reportable 06/07/18 05:35: Sodium 145, Potassium 4.0, Chloride 112 H, Carbon Dioxide 25.0, Anion Gap 8, BUN 21 H, Creatinine 1.09, Estim Creat Clear Calc 60.32, Est GFR (MDRD) Af Amer 84, Est GFR (MDRD) Non-Af 69, BUN/Creatinine Ratio 19.3, Glucose 85, Calcium 8.2 L, Phosphorus 3.3 Current Medications Acetaminophen (Tylenol) 650 mg PO Q8H PRN PRN Reason: Mild Pain (0-3/10)/Headache Al Hydroxide/Mg Hydroxide (Mylanta Ii) 10 ml PO 4X/DAY PRN PRN PRN Reason: INDIGESTION [facility] Amlodipine Besylate (Norvasc) 10 mg PO DAILY [facility] Atenolol (Tenormin (Beta Britt)) 50 mg PO QHS [facility] Last Admin: 06/06/18 21:04 Dose: 50 mg Atorvastatin Calcium (Lipitor) 80 mg PO QHS [facility] Last Admin: 06/06/18 21:04 Dose: 80 mg Bisacodyl (Dulcolax) 10 mg RECTAL .PRN X 1 PRN PRN Reason: Constipation [facility]pir[facility] (Amaryl) [facility] Insulin Human Lispro (Humalog Kwikpen (Bkc)) 0 unit SC [facility]; Protocol Last Admin: 06/06/18 21:04 Dose: Not Given Magnesium Hydroxide (Milk Of Magnesia) 30 ml PO .PRN X 1 PRN PRN Reason: Constipation Multivitamins (Multivitamin) [facility] Senna/Docusate Sodium (Senokot-S, Madelin-Colace) 2 tablet PO BID [facility] Last Admin: 06/06/18 21:04 Dose: 2 tablet Tamsulosin HCl (Flomax) 0.4 mg PO DAILY@0830 [facility] Warfarin Sodium (Coumadin (Pbkc)) 3 mg PO Alas@1700 [facility] Warfarin Sodium (Coumadin (Pbkc)) 6 mg PO MoTuWeThFrSa@1700 [facility] Medical Necessity - Tobacco Use Smoking Status: Former smoker Tobacco Use: Cigarettes Assessment/Plan 1. Bilateral thalamic infarcts -Presenting mostly with dysarthria -CTA of head and neck with less than 50% stenosis of bilateral carotid arteries, and a 50-75% stenosis of right vertebral artery takeoff. -Echo unremarkable with an EF of 65% -PT/OT, and speech therapy -Permissive hypertension for the next 24 hours and then can resume his home blood pressure medications with Norvasc and atenolol -Currently on Coumadin for mechanical valve and his INR is therapeutic -Continue with statin therapy 2. Hypertension/status post aortic valve replacement -Continue with Coumadin maintain INR between 2 and 3 -We will hold Norvasc and atenolol for now 3. Gout -Stable -C/w allopurinol 4. DM 2 -Continue with Accu-Cheks and sliding scale insulin -Continue with glimepiride DVT: Coumadin Code Visit Inpatient E&M: [id number] [facility] L[facility]
--- NOTE | 2018-06-07 07:44 | PN_ITS ---
Subjective: 78-year-old male who presented after a fall with weakness and slurred speech. Patient is presentation to the acute side of the hospital, patient was found to have bilateral thalamic infarcts on MRI, CTA of his head and neck showed less than 50% stenosis of his right and left internal carotid arteries, and a 50-75% stenosis at the takeoff of the right vertebral artery. Echo was normal with an EF of 65%. He is doing well today. His slurring seems to have improved a little bit he continues to deny any weakness in his upper or lower extremities. Vitals/I&O's: Vital Signs Temp Pulse Resp BP Pulse Ox 98.5 F 72 17 139/76 H 94 06/06/18 21:26 06/06/18 21:26 06/06/18 21:26 06/06/18 21:26 06/06/18 21:26 Oxygen Delivery Method Room Air Weight: 225 lb 7.468 oz Body Mass Index (BMI) 30.5 Finger Stick Blood Glucose 119 Intake and Output for Last 24 Hours 06/05/18 06/06/18 06/07/18 23:59 23:59 23:59 Intake Total 260 / 260 60 / 60 Output Total 200 / 200 500 / 500 Balance 60 / 60 -440 / -440 General: Alert, Oriented x3, Cooperative, No apparent distress HEENT: Atraumatic, PERRLA, EOMI, Normocephalic Oral: Moist Mucosa Neck: Supple, No JVD Lungs: Clear to auscultation, Normal air movement, No rhonchi, No wheeze, No rales Cardiovascular: Regular rate, Regular Rhythm, Normal S1, Normal S2, No murmurs Abdomen: Soft, Non Tender, Non-Distended, No Hepato-splenomegaly Extremities: No edema, Capillary Refill Less than 3 Seconds Neurological: Motor Exam 5/5 strength throughout, Slurred Speech, Sensory exam intact to light touch and pain Psych/Mental Status: Normal Affect, Appropriate Laboratory Results 06/06/18 06:30: Magnesium 1.9 06/06/18 21:02: POC Glucose 137 H 06/07/18 05:35: PT 34.6 H, INR 3.4 06/07/18 05:35: WBC 8.0, RBC 4.18 L, Hgb 13.1, Hct 40.3, MCV 96.4 H, MCH 31.3, MCHC 32.5, RDW 14.0, RDW Differential 47.7 H, Plt Count 253, MPV 10.4, Immature Gran % (Auto) 0.200, Neut % (Auto) 56.1, Lymph % (Auto) 31.3, [place] % (Auto) 8.7, Eos % (Auto) 3.5, Baso % (Auto) 0.2, Absolute Neuts (auto) 4.5, Absolute Lymphs (auto) 2.51, Total Counted Not Reportable 06/07/18 05:35: Sodium 145, Potassium 4.0, Chloride 112 H, Carbon Dioxide 25.0, Anion Gap 8, BUN 21 H, Creatinine 1.09, Estim Creat Clear Calc 60.32, Est GFR (MDRD) Af Amer 84, Est GFR (MDRD) Non-Af 69, BUN/Creatinine Ratio 19.3, Glucose 85, Calcium 8.2 L, Phosphorus 3.3 Current Medications Acetaminophen (Tylenol) 650 mg PO Q8H PRN PRN Reason: Mild Pain (0-3/10)/Headache Al Hydroxide/Mg Hydroxide (Mylanta Ii) 10 ml PO 4X/DAY PRN PRN PRN Reason: INDIGESTION [facility] Amlodipine Besylate (Norvasc) 10 mg PO DAILY [facility] Atenolol (Tenormin (Beta Britt)) 50 mg PO QHS [facility] Last Admin: 06/06/18 21:04 Dose: 50 mg Atorvastatin Calcium (Lipitor) 80 mg PO QHS [facility] Last Admin: 06/06/18 21:04 Dose: 80 mg Bisacodyl (Dulcolax) 10 mg RECTAL .PRN X 1 PRN PRN Reason: Constipation Glimepiride (Amaryl) [facility] Insulin Human Lispro (Humalog Kwikpen (Bkc)) 0 unit SC [facility]; Protocol Last Admin: 06/06/18 21:04 Dose: Not Given Magnesium Hydroxide (Milk Of Magnesia) 30 ml PO .PRN X 1 PRN PRN Reason: Constipation Multivitamins (Multivitamin) 1 tablet [facility] Senna/Docusate Sodium (Senokot-S, Madelin-Colace) 2 tablet PO BID [facility] Last Admin: 06/06/18 21:04 Dose: 2 tablet Tamsulosin HCl (Flomax) 0.4 mg PO DAILY@0830 [facility] Warfarin Sodium (Coumadin (Pbkc)) 3 mg PO Alas@1700 [facility] Warfarin Sodium (Coumadin (Pbkc)) 6 mg PO MoTuWeThFrSa@1700 [facility] Medical Necessity - Tobacco Use Smoking Status: Former smoker Tobacco Use: Cigarettes Assessment/Plan 1. Bilateral thalamic infarcts -Presenting mostly with dysarthria -CTA of head and neck with less than 50% stenosis of bilateral carotid arteries, and a 50-75% stenosis of right vertebral artery takeoff. -Echo unremarkable with an EF of 65% -PT/OT, and speech therapy -Permissive hypertension for the next 24 hours and then can resume his home blood pressure medications with Norvasc and atenolol -Currently on Coumadin for mechanical valve and his INR is therapeutic -Continue with statin therapy 2. Hypertension/status post aortic valve replacement -Continue with Coumadin maintain INR between 2 and 3 -We will hold Norvasc and atenolol for now 3. Gout -Stable -C/w allopurinol 4. DM 2 -Continue with Accu-Cheks and sliding scale insulin -Continue with glimepiride DVT: Coumadin Code Visit Inpatient E&M: 78408 [facility] L3
[2018-06-07 08:12] VITALS: BP 143/77; PULSE 62; RESP 18; TEMP 36.5; O2SAT 93
[2018-06-07 08:12] LABS: Bedside Glucose 118 mg/dL (70-110)
[2018-06-07] MEDS: Glimepiride 2 MG Tablet PO (08:13)
[2018-06-07] MEDS: Multivitamins,Therapeutic Tablet 1 TABLET PO (08:13)
[2018-06-07] MEDS: Senna/Docusate Sodium 1 Tablet 2 TABLET PO (08:14)
[2018-06-07] MEDS: Tamsulosin HCl 0.4 MG Capsule PO (08:14)
[2018-06-07] MEDS: Allopurinol 100 MG Tablet PO (08:14)
[2018-06-07 11:25] LABS: Bedside Glucose 84 mg/dL (70-110)
--- NOTE | 2018-06-07 12:06 | PCM.HP.STD ---
History of Present Illness Date of Admission: 06/06/18 Chief Complaint: Dysarthria and weakness Samantha Dahl is a 78-year-old right-handed male on Coumadin anticoagulation due to a mechanical aortic valve, who was admitted to the hospital 3 days ago with weakness and slurred speech. His INR was therapeutic on admission. 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 Other workup was negative including echocardiogram and he remained sinus rhythm on telemetry. Therapies were initiated and well tolerated. Rehab was considered and it was felt that his debility mitigated a short inpatient stay in the rehab unit to return him home to his prior level of functional independence. He does live with family at home. Has a history of hypertension, diabetes, he is a non-smoker. Past Medical History Past Medical History (Chronic Problems): Chronic Problems History of GI bleed (Chronic) Chronic anticoagulation (Chronic) HTN (hypertension) (Chronic) History of aortic valve replacement (Chronic) Diabetes mellitus, type 2 (Chronic) Gout (Chronic) Allergies No Known Allergies Allergy (Verified 06/05/18 12:15) Home Medications: Ambulatory Orders Medication Instructions Recorded Allopurinol [Zyloprim] 100 mg PO DAILYCM 05/27/15 Glimepiride [Amaryl] 2 mg PO DAILY 05/27/15 Multivitamins,Therapeutic 1 tablet PO DAILY 05/27/15 [Multivitamin] Antacid Liquid 10 ml PO 4X/DAY PRN PRN 06/17/15 Tamsulosin HCl [Flomax] 0.4 mg PO DAILY 06/17/15 Warfarin Sodium 3 mg PO ALAS 06/05/18 Warfarin Sodium 6 mg PO MOTUWETHFRSA 06/05/18 Amlodipine [Norvasc] 10 mg PO DAILY 06/06/18 Atenolol [Tenormin] 50 mg PO QHS #0 06/06/18 Atorvastatin Calcium [Lipitor] 80 mg PO QHS 06/06/18 Surgical History: - - Aortic valve replacement in approximately 1994 Psychiatric History: No pertinent psych hx Smoking Status: Former smoker Tobacco Use: Cigarettes - *Family History Paternal History Items: COPD Maternal History Items: Diabetes Review of Systems Constitutional: Denies: Chills, Fever, Weight Change HEENT: Denies: Head Aches, Sinus Congestion, Sinus Drainage Cardiovascular: Denies: Chest Pain, Palpitations Respiratory: Denies: Cough, Shortness of breath at rest, Sputum production Gastrointestinal: Denies: Abdominal Pain, Nausea, Vomiting Genitourinary: Denies: Dysuria Musculoskeletal: Denies: Joint Pain, Joint Tenderness Skin: Denies: Rash, Wounds Neurological: Reports: Slurred speech. Denies: Focal weakness, Numbness, Tingling Psychiatric: Denies: Anxiety, Depression, Homicidal Ideations, Suicidal Ideations Hematologic/ Lymphatic: Denies: Easy Bruising, Easy Bleeding VTE Information - Inpt Only VTE Present on Admission: Yes - Coumadin VTE Pharm Prophylaxis ordered?: Yes - Physical Exam General: Alert, Oriented x3, Cooperative, No apparent distress HEENT: PERRLA, EOMI Oral: Moist Mucosa Neck: Supple Lungs: Clear to auscultation Cardiovascular: Regular rate Abdomen: Bowel Sounds Present, Soft, Non Tender, Non-Distended, No Hepato-splenomegaly Extremities: No Calf Tenderness Skin: No rashes Musculoskeletal: No Tenderness to Palpation of Joints or Extremities Neurological: Cranial nerves II-XII grossly intact, Slurred Speech, Unsteady Gait Psych/Mental Status: Normal Affect, Alert and oriented to time, place, person, mood and affect Vital Signs Temp Pulse Resp BP Pulse Ox 36.5 C L 62 18 143/77 H 93 06/07/18 08:12 06/07/18 08:12 06/07/18 08:12 06/07/18 08:12 06/07/18 08:12 Oxygen Delivery Method Room Air Weight: 102.27 kg Body Mass Index (BMI) 30.5 Finger Stick Blood Glucose 119 Intake and Output for Last 24 Hours 06/05/18 06/06/18 06/07/18 23:59 23:59 23:59 Intake Total 260 / 260 60 / 60 Output Total 200 / 200 600 / 600 Balance 60 / 60 -540 / -540 Laboratory Tests Past 24 Hrs 06/06/18 06/07/18 06/07/18 06:30 05:35 05:35 WBC 8.0 RBC 4.18 L Hgb 13.1 Hct 40.3 MCV 96.4 H MCH 31.3 MCHC 32.5 RDW 14.0 RDW Differential 47.7 H Plt Count 253 MPV 10.4 Immature Gran % (Auto) 0.200 Neut % (Auto) 56.1 Lymph % (Auto) 31.3 [place] % (Auto) 8.7 Eos % (Auto) 3.5 Baso % (Auto) 0.2 Absolute Neuts (auto) 4.5 Absolute Lymphs (auto) 2.51 Total Counted Not Reportable PT 34.6 H INR 3.4 Sodium Potassium Chloride Carbon Dioxide Anion Gap BUN Creatinine Estim Creat Clear Calc Est GFR (MDRD) Af Amer Est GFR (MDRD) Non-Af BUN/Creatinine Ratio Glucose Calcium Phosphorus Magnesium 1.9 06/07/18 05:35 WBC RBC Hgb Hct MCV MCH MCHC RDW RDW Differential Plt Count MPV Immature Gran % (Auto) Neut % (Auto) Lymph % (Auto) [place] % (Auto) Eos % (Auto) Baso % (Auto) Absolute Neuts (auto) Absolute Lymphs (auto) Total Counted PT INR Sodium 145 Potassium 4.0 Chloride 112 H Carbon Dioxide 25.0 Anion Gap 8 BUN 21 H Creatinine 1.09 Estim Creat Clear Calc 60.32 Est GFR (MDRD) Af Amer 84 Est GFR (MDRD) Non-Af 69 BUN/Creatinine Ratio 19.3 Glucose 85 Calcium 8.2 L Phosphorus 3.3 Magnesium POC Glucose 06/07/18 06/07/18 06/06/18 11:20 08:07 21:02 POC Glucose 84 118 H 137 H Current Medications Generic Name Dose Route Start Last Admin Trade Name Freq PRN Reason Stop Dose Admin Acetaminophen 650 mg 06/06/18 18:39 Tylenol PO Q8H PRN Mild Pain (0-3/10)/Headache Al Hydroxide/Mg Hydroxide 10 ml 06/06/18 17:54 Mylanta Ii PO 4X/DAY PRN PRN INDIGESTION Allopurinol 100 mg 06/07/18 08:00 06/07/18 08:14 [facility] Administration Amlodipine Besylate 10 mg 06/11/18 10:00 Norvasc PO DAILY [facility] Atenolol 50 mg 06/11/18 22:00 Tenormin (Beta Britt) PO QHS [facility] Atorvastatin Calcium 80 mg 06/06/18 22:00 06/06/18 21:04 Lipitor PO 80 mg QHS [facility] Administration Bisacodyl 10 mg 06/06/18 17:58 Dulcolax RECTAL .PRN X 1 PRN Constipation Glimepiride 2 mg 06/07/18 08:00 06/07/18 08:13 Amaryl PO 2 mg DAILYCM [facility] Administration Insulin Human Lispro 0 unit 06/06/18 22:00 06/07/18 12:04 Humguevara Saha (Bkc) SC Not Given ACHS [facility] Protocol Magnesium Hydroxide 30 ml 06/06/18 17:58 Milk Of Magnesia PO .PRN X 1 PRN Constipation Multivitamins 1 tablet 06/07/18 08:00 06/07/18 08:13 Multivitamin PO 1 tablet DAILYCM [facility] Administration Senna/Docusate Sodium 2 tablet 06/06/18 22:00 06/07/18 08:14 Senokot-S, Madelin-Colace PO 2 tablet BID [facility] Administration Tamsulosin HCl 0.4 mg 06/07/18 08:30 06/07/18 08:14 Flomax PO 0.4 mg DAILY@0830 [facility] Administration Warfarin Sodium 3 mg 06/09/18 17:00 Coumadin (Pbkc) PO Alas@1700 [facility] Warfarin Sodium 6 mg 06/07/18 17:00 Coumadin (Pbkc) PO MoTuWeThFrSa@1700 [facility] Assessment/Plan Debility status post 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 Goal of therapy is moravian of prior level of functional independence. Complicated by mechanical aortic valve, diabetes and hypertension. Plan: Physical therapy for gait and balance Occupational Therapy for ADLs Speech therapy for dysarthria Mechanical aortic valve: Continue Coumadin keep INR 2.5-3.5 Allow blood pressure to remain high for now until 06/11/18 at which point aggressively treat his blood pressure unless it goes over 200 systolic Continue anti-glycemic agents Continue statin therapy
--- NOTE | 2018-06-07 12:10 | HP.PCM_ITS ---
History of Present Illness Date of Admission: 06/06/18 Chief Complaint: Dysarthria and weakness Samantha Dahl is a 78-year-old right-handed male on Coumadin anticoagulation due to a mechanical aortic valve, who was admitted to the hospital 3 days ago with weakness and slurred speech. His INR was therapeutic on admission. 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 Other workup was negative including echocardiogram and he remained sinus rhythm on telemetry. Therapies were initiated and well tolerated. Rehab was considered and it was felt that his debility mitigated a short inpatient stay in the rehab unit to return him home to his prior level of functional independence. He does live with family at home. Has a history of hypertension, diabetes, he is a non-smoker. Past Medical History Past Medical History (Chronic Problems): Chronic Problems History of GI bleed (Chronic) Chronic anticoagulation (Chronic) HTN (hypertension) (Chronic) History of aortic valve replacement (Chronic) Diabetes mellitus, type 2 (Chronic) Gout (Chronic) Allergies No Known Allergies Allergy (Verified 06/05/18 12:15) Home Medications: Ambulatory Orders Medication Instructions Recorded Allopurinol [Zyloprim] 100 mg PO DAILYCM 05/27/15 Glimepiride [Amaryl] 2 mg PO DAILY 05/27/15 Multivitamins,Therapeutic 1 tablet PO DAILY 05/27/15 [Multivitamin] Antacid Liquid 10 ml PO 4X/DAY PRN PRN 06/17/15 Tamsulosin HCl [Flomax] 0.4 mg PO DAILY 06/17/15 Warfarin Sodium 3 mg PO ALAS 06/05/18 Warfarin Sodium 6 mg PO MOTUWETHFRSA 06/05/18 Amlodipine [Norvasc] 10 mg PO DAILY 06/06/18 Atenolol [Tenormin] 50 mg PO QHS #0 06/06/18 Atorvastatin Calcium [Lipitor] 80 mg PO QHS 06/06/18 Surgical History: - - Aortic valve replacement in approximately 1994 Psychiatric History: No pertinent psych hx Smoking Status: Former smoker Tobacco Use: Cigarettes - *Family History Paternal History Items: COPD Maternal History Items: Diabetes Review of Systems Constitutional: Denies: Chills, Fever, Weight Change HEENT: Denies: Head Aches, Sinus Congestion, Sinus Drainage Cardiovascular: Denies: Chest Pain, Palpitations Respiratory: Denies: Cough, Shortness of breath at rest, Sputum production Gastrointestinal: Denies: Abdominal Pain, Nausea, Vomiting Genitourinary: Denies: Dysuria Musculoskeletal: Denies: Joint Pain, Joint Tenderness Skin: Denies: Rash, Wounds Neurological: Reports: Slurred speech. Denies: Focal weakness, Numbness, Tingling Psychiatric: Denies: Anxiety, Depression, Homicidal Ideations, Suicidal Ideations Hematologic/ Lymphatic: Denies: Easy Bruising, Easy Bleeding VTE Information - Inpt Only VTE Present on Admission: Yes - Coumadin VTE Pharm Prophylaxis ordered?: Yes - Physical Exam General: Alert, Oriented x3, Cooperative, No apparent distress HEENT: PERRLA, EOMI Oral: Moist Mucosa Neck: Supple Lungs: Clear to auscultation Cardiovascular: Regular rate Abdomen: Bowel Sounds Present, Soft, Non Tender, Non-Distended, No Hepato- splenomegaly Extremities: No Calf Tenderness Skin: No rashes Musculoskeletal: No Tenderness to Palpation of Joints or Extremities Neurological: Cranial nerves II-XII grossly intact, Slurred Speech, Unsteady Gait Psych/Mental Status: Normal Affect, Alert and oriented to time, place, person, mood and affect Vital Signs Temp Pulse Resp BP Pulse Ox 36.5 C L 62 18 143/77 H 93 06/07/18 08:12 06/07/18 08:12 06/07/18 08:12 06/07/18 08:12 06/07/18 08:12 Oxygen Delivery Method Room Air Weight: 102.27 kg Body Mass Index (BMI) 30.5 Finger Stick Blood Glucose 119 Intake and Output for Last 24 Hours 06/05/18 06/06/18 06/07/18 23:59 23:59 23:59 Intake Total 260 / 260 60 / 60 Output Total 200 / 200 600 / 600 Balance 60 / 60 -540 / -540 Laboratory Tests Past 24 Hrs 06/06/18 06/07/18 06/07/18 06:30 05:35 05:35 WBC 8.0 RBC 4.18 L Hgb 13.1 Hct 40.3 MCV 96.4 H MCH 31.3 MCHC 32.5 RDW 14.0 RDW Differential 47.7 H Plt Count 253 MPV 10.4 Immature Gran % (Auto) 0.200 Neut % (Auto) 56.1 Lymph % (Auto) 31.3 [place] % (Auto) 8.7 Eos % (Auto) 3.5 Baso % (Auto) 0.2 Absolute Neuts (auto) 4.5 Absolute Lymphs (auto) 2.51 Total Counted Not Reportable PT 34.6 H INR 3.4 Sodium Potassium Chloride Carbon Dioxide Anion Gap BUN Creatinine Estim Creat Clear Calc Est GFR (MDRD) Af Amer Est GFR (MDRD) Non-Af BUN/Creatinine Ratio Glucose Calcium Phosphorus Magnesium 1.9 06/07/18 05:35 WBC RBC Hgb Hct MCV MCH MCHC RDW RDW Differential Plt Count MPV Immature Gran % (Auto) Neut % (Auto) Lymph % (Auto) [place] % (Auto) Eos % (Auto) Baso % (Auto) Absolute Neuts (auto) Absolute Lymphs (auto) Total Counted PT INR Sodium 145 Potassium 4.0 Chloride 112 H Carbon Dioxide 25.0 Anion Gap 8 BUN 21 H Creatinine 1.09 Estim Creat Clear Calc 60.32 Est GFR (MDRD) Af Amer 84 Est GFR (MDRD) Non-Af 69 BUN/Creatinine Ratio 19.3 Glucose 85 Calcium 8.2 L Phosphorus 3.3 Magnesium POC Glucose 06/07/18 06/07/18 06/06/18 11:20 08:07 21:02 POC Glucose 84 118 H 137 H Current Medications Generic Name Dose Route Start Last Admin Trade Name Freq PRN Reason Stop Dose Admin Acetaminophen 650 mg 06/06/18 18:39 Tylenol PO Q8H PRN Mild Pain (0-3/10)/Headache Al Hydroxide/Mg Hydroxide 10 ml 06/06/18 17:54 Mylanta Ii PO 4X/DAY PRN PRN INDIGESTION Allopurinol 100 mg 06/07/18 08:00 06/07/18 08:14 [facility] Amlodipine Besylate 10 mg 06/11/18 10:00 Norvasc PO DAILY [facility] Atenolol 50 mg 06/11/18 22:00 Tenormin (Beta Britt) PO QHS [facility] Atorvastatin Calcium 80 mg 06/06/18 22:00 06/06/18 21:04 Lipitor PO 80 mg QHS [facility] Administration Bisacodyl 10 mg 06/06/18 17:58 Dulcolax RECTAL .PRN X 1 PRN Constipation Glimepiride 2 mg 06/07/18 08:00 06/07/18 08:13 Amaryl PO 2 mg DAILYCM [facility] Administration Insulin Human Lispro 0 unit 06/06/18 22:00 06/07/18 12:04 Humguevara Saha (Bkc) SC Not Given ACHS [facility] Protocol Magnesium Hydroxide 30 ml 06/06/18 17:58 Milk Of Magnesia PO .PRN X 1 PRN Constipation Multivitamins 1 tablet 06/07/18 08:00 06/07/18 08:13 Multivitamin PO 1 tablet DAILYCM [facility] Administration Senna/Docusate Sodium 2 tablet 06/06/18 22:00 06/07/18 08:14 Senokot-S, Madelin-Colace PO 2 tablet BID [facility] Administration Tamsulosin HCl 0.4 mg 06/07/18 08:30 06/07/18 08:14 Flomax PO 0.4 mg DAILY@0830 [facility] Administration Warfarin Sodium 3 mg 06/09/18 17:00 Coumadin (Pbkc) PO Alas@1700 [facility] Warfarin Sodium 6 mg 06/07/18 17:00 Coumadin (Pbkc) PO MoTuWeThFrSa@1700 [facility] Assessment/Plan Debility status post 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 Goal of therapy is anabaptism of prior level of functional independence. Complicated by mechanical aortic valve, diabetes and hypertension. Plan: Physical therapy for gait and balance Occupational Therapy for ADLs Speech therapy for dysarthria Mechanical aortic valve: Continue Coumadin keep INR 2.5-3.5 Allow blood pressure to remain high for now until 06/11/18 at which point aggressively treat his blood pressure unless it goes over 200 systolic Continue anti-glycemic agents Continue statin therapy
--- NOTE | 2018-06-07 12:13 | REHABEVAL_ITS ---
Admission Information Status Changes from Prescreening?: No changes Identified Actual Problem List:: Alteration in Nutrition, Mobility Impaired, Self Care Deficit, Ineffective Communication, Diabetes, Hyperglycemia, BP, Hypertension, Ineffect.D/C Plan r/t Psy Potential Problem List:: DVT, Bleeding, Infection, UTI, Aspiration, Falls, Skin Integrity, Depression Risk of Complications DVT: LMWH, ANGÉLICA Hose, Sequential Compression Device Bleeding: Monitor Lab Values, Nursing to Teach Precautions for anti-coagulation therapy., Wound, if applicable, to be assessed every shift., Stroke patients assessed for lethargy or change in status. Infection: Clinical Staff to Monitor for S/S of infection:, S/S of infection include fever, redness, warmth, etc. Urinary Tract Infection: Monitor for frequency, burning, discomfort, or incontinence., Nursing will obtain urine sample for urinalysis and C&S when ordered. Aspiration: Clinical staff will monitor for coughing, drooling, congestion., Speech will evaluate swallowing and dsyphasia., Nursing will monitor patient swallowing during meals. Falls: Patient will be evaluated for Fall Precautions, Patient will be placed on Fall Precautions as indicated per protocol. Skin Breakdown: Nursing will assess skin daily using assessment tool., Nursing will place on Skin Breakdown Precautions as indicated. Pain: Clinical staff will assess patient's pain level per protocol., Medications will be given, if needed, and the pain level reassessed., Other methods: Massage, distraction, decrease stimulus, etc. used PRN. Plan of Care Patient requires physician specializing in physical medicine and rehab oversight to provide close medical supervision of rehab issues including: Pain Management, Sleep Problems, Bowel and Bladder, Medical and co-morbidity Management, DVT prophylaxis, Rehabilitation Leadership, Coordination of treatment team Patient needs Physical Therapy: For a minimum of 1 hour, At least 5 out of 7 days Patient needs Physical Therapy to improve:: Mobility, Mobility, Mobility, Strengthening, Transfers, Stretching, ROM, Endurance, Stairs, Gait, Balance Patient needs Occupational Therapy: For a minimum of 1 hour, At least 5 out of 7 days Patient needs Occupational Therapy to improve ADL's incl.: Eating, Grooming, Bathing, Dressing, Toileting, Toilet transfers, Community Reintegration, Higher functioning activities, Household tasks, Adaptive Equipment, Splinting, Other activities as determined Patient requires speech therapy: For a minimum of 1 hour, At least 5 out of 7 days Patient requires speech therapy for: Swallowing, Cognition, Language Skills, Compensatory Strategies Patient requires 24/ Rehabilitation Nursing for: Pain Issues, Identifying and preventing risk factors, Monitoring and reporting current medical conditions, Assisting with ambulation, transfer, and all ADL's, Teaching patients about disease process and medications, Family teaching, Providing safe environment, Bowel and Bladder Issues, Skin integrity, Medication Management Patient needs Blind Stitch Machine Operator/ Case Management for: Discharge Planning, Arranging Home Equipment or Services, Family Interventions Patient needs Dietary and Nutrition Services for: Adequate Nutrition, Nut ritional Supplements, Nutritional Education Goals Patient will remain: free from falls, or injury at time of discharge. Patient will perform bed mobility at: MOD I level of assist. Patient will complete transfers from bed to chair at: MOD I level of assist. Patient will ambulate: 100 feet, with MOD I assist, with LRD Patient will complete upper body dressing at: MOD I level of assist. Patient will complete lower body dressing at: MOD I level of assist. Patient will complete toileting at: MOD I level of assist. Patient will perform bathing at: MOD I level of assist. Patient will complete grooming at: MOD I level of assist. Patient will complete home management skills at: MOD I level of assist. Patient will achieve: 12 stairs, at MOD I assist Patient will have pain level of: of 3 or less Patient's skin will: remain intact, free from infection. Patient will receive: adequate nutrition. Discharge Planning Pt Prognosis for Sig. Practical Improv. w/in Reasonable Time: Good Anticipated D/C Destination: Home with Outpt Therapy Was Preadmission Assessment Accurate?: Yes
[2018-06-07 14:46] VITALS: BMI 30.5
[2018-06-07] MEDS: Insulin Lispro 100 UNIT/ML INSULN.PEN SC (17:10)
[2018-06-07 17:11] LABS: Bedside Glucose 157 mg/dL (70-110)
[2018-06-07 21:01] LABS: Bedside Glucose 147 mg/dL (70-110)
[2018-06-07] MEDS: Atorvastatin Calcium 80 MG Tablet PO (21:48)
[2018-06-07] MEDS: Nystatin Powder 15gm Bottle 1 APPLIC TOPICAL (21:48)
[2018-06-07 22:00] VITALS: BP 139/72; PULSE 79; RESP 16; TEMP 36.9; O2SAT 93
[2018-06-08 00:20] VITALS: BMI 30.5
[2018-06-08 06:29] LABS: Prothrombin Time (Protime)PT. 31.7 SECONDS (11.7-14.9)
[2018-06-08 06:40] VITALS: O2SAT 91
--- NOTE | 2018-06-08 06:48 | NURSING ---
Reviewed and agree with LPNS fims and handoff
[2018-06-08 06:50] LABS: Bedside Glucose 106 mg/dL (70-110)
[2018-06-08 07:00] VITALS: BP 126/65; PULSE 66; RESP 18; TEMP 36.5; O2SAT 93
[2018-06-08] MEDS: Multivitamins,Therapeutic Tablet 1 TABLET PO (07:57)
[2018-06-08] MEDS: Allopurinol 100 MG Tablet PO (07:58)
[2018-06-08] MEDS: Glimepiride 2 MG Tablet PO (07:58)
[2018-06-08] MEDS: Tamsulosin HCl 0.4 MG Capsule PO (07:58)
[2018-06-08] MEDS: Nystatin Powder 15gm Bottle 1 APPLIC TOPICAL ×2 (10:47→21:08)
[2018-06-08 11:06] VITALS: BMI 30.5
[2018-06-08 11:51] LABS: Bedside Glucose 67 mg/dL (70-110)
[2018-06-08 12:46] LABS: Bedside Glucose 120 mg/dL (70-110)
--- NOTE | 2018-06-08 16:07 | NURSING ---
Dr. Manzanaress aware of INR and ok to continue current order of coumadin.
[2018-06-08 16:41] LABS: Bedside Glucose 116 mg/dL (70-110)
[2018-06-08] MEDS: Atorvastatin Calcium 80 MG Tablet PO (21:08)
[2018-06-08 21:11] VITALS: BP 144/79; PULSE 81; RESP 16; TEMP 36.6; O2SAT 96
[2018-06-08 21:21] LABS: Bedside Glucose 120 mg/dL (70-110)
[2018-06-08 23:41] VITALS: BMI 30.5
--- NOTE | 2018-06-09 04:23 | NURSING ---
PT REFUSED SHOWER THIS AM, STATING I SHOWERED LAST NIGHT.
[2018-06-09 06:10] LABS: International Normalized Ratio 2.4; Prothrombin Time (Protime)PT. 25.9 SECONDS (11.7-14.9)
[2018-06-09 07:00] VITALS: BP 160/62; PULSE 95; RESP 18; TEMP 36.6; O2SAT 95; O2SAT 98
[2018-06-09 07:16] LABS: Bedside Glucose 104 mg/dL (70-110)
[2018-06-09] MEDS: Multivitamins,Therapeutic Tablet 1 TABLET PO (07:50)
[2018-06-09] MEDS: Glimepiride 2 MG Tablet PO (07:50)
[2018-06-09] MEDS: Tamsulosin HCl 0.4 MG Capsule PO (07:50)
[2018-06-09] MEDS: Allopurinol 100 MG Tablet PO (07:50)
[2018-06-09] MEDS: Nystatin Powder 15gm Bottle 1 APPLIC TOPICAL ×2 (07:51→21:31)
--- NOTE | 2018-06-09 12:00 | NURSING ---
up and ambulated around halls with light touch and walker. tolerated well.
[2018-06-09 12:16] LABS: Bedside Glucose 77 mg/dL (70-110)
[2018-06-09 16:25] VITALS: BMI 30.5
[2018-06-09 16:45] LABS: Bedside Glucose 141 mg/dL (70-110)
[2018-06-09 19:18] VITALS: BP 138/85; PULSE 101; RESP 18; TEMP 36.8; O2SAT 93
[2018-06-09] MEDS: Atorvastatin Calcium 80 MG Tablet PO (21:30)
[2018-06-09 21:34] VITALS: BMI 30.5
[2018-06-09 22:21] LABS: Bedside Glucose 121 mg/dL (70-110)
[2018-06-10 06:10] LABS: International Normalized Ratio 2.2; Prothrombin Time (Protime)PT. 24.4 SECONDS (11.7-14.9)
[2018-06-10 07:04] VITALS: O2SAT 96
[2018-06-10 07:16] LABS: Bedside Glucose 96 mg/dL (70-110)
[2018-06-10] MEDS: Allopurinol 100 MG Tablet PO (07:42)
[2018-06-10] MEDS: Multivitamins,Therapeutic Tablet 1 TABLET PO (07:42)
[2018-06-10] MEDS: Nystatin Powder 15gm Bottle 1 APPLIC TOPICAL ×2 (07:42→22:12)
[2018-06-10] MEDS: Tamsulosin HCl 0.4 MG Capsule PO (07:42)
[2018-06-10] MEDS: Glimepiride 2 MG Tablet PO (07:42)
[2018-06-10 07:43] VITALS: BP 118/81; PULSE 106; RESP 18; TEMP 36.5; O2SAT 96
[2018-06-10 07:51] VITALS: PULSE 106
--- NOTE | 2018-06-10 10:52 | PN.NEURO_ITS ---
Subjective: Patient seen, no new complaints. Tolerating therapy without any difficulty, warmed up on his walker and then transition to walker and ambulated without any problems. Denies any blurry vision, double vision or headache. His speech has improved since admission is much more intelligible. - Physical Exam General: Alert, Oriented x3, Cooperative HEENT: Atraumatic, PERRLA, EOMI, Normocephalic Neck: Supple, No JVD, Negative Carotid Bruits Lungs: Clear to auscultation, Normal air movement Cardiovascular: Regular rate, No murmurs Abdomen: Bowel Sounds Present, Soft, Non Tender Extremities: No edema, Capillary Refill Less than 3 Seconds Skin: No rashes, No breakdown Musculoskeletal: No Tenderness to Palpation of Joints or Extremities Neurological: Cranial nerves II-XII grossly intact, Slurred Speech, Unsteady Gait Psych/Mental Status: Normal Affect, Appropriate, Alert and oriented to time, place, person, mood and affect Vital Signs Temp Pulse Resp BP Pulse Ox 97.7 F L 106 H 18 118/81 H 96 06/10/18 07:43 06/10/18 07:51 06/10/18 07:43 06/10/18 07:43 06/10/18 07:43 Oxygen Delivery Method Room Air Weight: 102.27 kg Body Mass Index (BMI) 30.5 Finger Stick Blood Glucose 119 Intake and Output for Last 24 Hours 06/08/18 06/09/18 06/10/18 23:59 23:59 23:59 Intake Total 840 / 840 720 / 720 240 / 240 Balance 840 / 840 720 / 720 240 / 240 Laboratory Tests Past 24 Hrs 06/10/18 05:46 PT 24.4 H INR 2.2 POC Glucose 06/10/18 06/09/18 06/09/18 06:57 21:29 16:33 POC Glucose 96 121 H 141 H 06/09/18 12:11 POC Glucose 77 Active Medications Acetaminophen (Tylenol) 650 mg PO Q8H PRN PRN Reason: Mild Pain (0-3/10)/Headache Al Hydroxide/Mg Hydroxide (Mylanta Ii) 10 ml PO 4X/DAY PRN PRN PRN Reason: INDIGESTION Allopurinol (Zyloprim) 100 mg PO DAILYCM [facility] Last Admin: 06/10/18 07:42 Dose: 100 mg Amlodipine Besylate (Norvasc) 10 mg PO DAILY [facility] Atenolol (Tenormin (Beta Britt)) 50 mg PO QHS [facility] Atorvastatin Calcium (Lipitor) 80 mg PO QHS [facility] Last Admin: 06/09/18 21:30 Dose: 80 mg Bisacodyl (Dulcolax) 10 mg RECTAL .PRN X 1 PRN PRN Reason: Constipation [facility]l) [facility] Last Admin: 06/10/18 07:42 Dose: 2 mg Insulin Human Lispro (Humalog Kwikpen (Bkc)) 0 unit SC [facility]; Protocol Last Admin: 06/10/18 06:59 Dose: Not Given Magnesium Hydroxide (Milk Of Magnesia) 30 ml PO .PRN X 1 PRN PRN Reason: Constipation Multivitamins (Multivitamin) [facility] Last Admin: 06/10/18 07:42 Dose: 1 tablet Nystatin (Mycostatin Powder) 1 applic TOPICAL BID [facility]; Protocol Last Admin: 06/10/18 07:42 Dose: 1 applicatio Senna/Docusate Sodium (Senokot-S, Madelin-Colace) 2 tablet PO BID [facility] Last Admin: 06/10/18 07:42 Dose: Not Given Tamsulosin HCl (Flomax) 0.4 mg PO DAILY@0830 [facility] Last Admin: 06/10/18 07:42 Dose: 0.4 mg Warfarin Sodium (Coumadin (Pbkc)) 3 mg PO Alas@1700 [facility] Last Admin: 06/09/18 17:07 Dose: 3 mg Warfarin Sodium (Coumadin (Pbkc)) 6 mg PO MoTuWeThFrSa@1700 [facility] Last Admin: 06/08/18 18:17 Dose: 6 mg Medical Necessity - Tobacco Use Smoking Status: Former smoker Tobacco Use: Cigarettes Assessment/Plan Debility status post 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 Goal of therapy is sabianist of prior level of functional independence. Complicated by mechanical aortic valve, diabetes and hypertension. Plan: Physical therapy for gait and balance Occupational Therapy for ADLs Speech therapy for dysarthria Mechanical aortic valve: Continue Coumadin keep INR 2.5-3.5 Allow blood pressure to remain high for now until 06/11/18 at which point aggressively treat his blood pressure unless it goes over 200 systolic Continue anti-glycemic agents Continue statin therapy
[2018-06-10 12:11] LABS: Bedside Glucose 102 mg/dL (70-110)
[2018-06-10 12:24] VITALS: BMI 30.5
[2018-06-10 16:45] LABS: Bedside Glucose 141 mg/dL (70-110)
[2018-06-10 20:09] VITALS: BMI 30.5
[2018-06-10 20:14] VITALS: BP 155/80; PULSE 92; RESP 18; TEMP 36.7; O2SAT 97
[2018-06-10 21:10] LABS: Bedside Glucose 165 mg/dL (70-110)
[2018-06-10] MEDS: Insulin Lispro 100 UNIT/ML INSULN.PEN SC (22:09)
[2018-06-10] MEDS: Atorvastatin Calcium 80 MG Tablet PO (22:10)
[2018-06-11 06:26] LABS: Bedside Glucose 96 mg/dL (70-110)
[2018-06-11 06:30] LABS: International Normalized Ratio 2.3; Prothrombin Time (Protime)PT. 25.3 SECONDS (11.7-14.9)
[2018-06-11 07:00] VITALS: PULSE 82; RESP 16; TEMP 36.6; O2SAT 97
[2018-06-11] MEDS: Multivitamins,Therapeutic Tablet 1 TABLET PO (07:41)
[2018-06-11] MEDS: Tamsulosin HCl 0.4 MG Capsule PO (07:41)
[2018-06-11] MEDS: Allopurinol 100 MG Tablet PO (07:41)
[2018-06-11] MEDS: Glimepiride 2 MG Tablet PO (07:41)
[2018-06-11] MEDS: Nystatin Powder 15gm Bottle 1 APPLIC TOPICAL ×2 (09:22→19:57)
[2018-06-11 12:11] LABS: Bedside Glucose 95 mg/dL (70-110)
[2018-06-11 12:53] VITALS: BMI 30.5
--- NOTE | 2018-06-11 15:21 | PCM.PN.HOSP ---
Subjective: Patient seen and examined. He had no complaints and felt well. He denied any fever chills, cough or chest pain, shortness of breath, abdominal pain, diarrhea vomiting. He has been tolerating physical therapy well. Labs and vitals reviewed. Vitals/I&O's: Vital Signs Temp Pulse Resp BP Pulse Ox 97.9 F 82 16 155/80 H 97 06/11/18 07:00 06/11/18 07:00 06/11/18 07:00 06/10/18 20:14 06/11/18 07:00 Oxygen Delivery Method Room Air Weight: 225 lb 7.468 oz Body Mass Index (BMI) 30.5 Finger Stick Blood Glucose 119 Intake and Output for Last 24 Hours 06/09/18 06/10/18 06/11/18 23:59 23:59 23:59 Intake Total 720 / 720 240 / 240 580 / 580 Balance 720 / 720 240 / 240 580 / 580 General: Alert, Oriented x3, Cooperative HEENT: Atraumatic, PERRLA, EOMI, Normocephalic Oral: Moist Mucosa Neck: Supple, No JVD, Negative Carotid Bruits Lungs: Clear to auscultation, Normal air movement, No rhonchi, No wheeze, No rales Cardiovascular: Regular rate, Regular Rhythm, Normal S1, Normal S2, No murmurs Abdomen: Bowel Sounds Present, Soft, Non Tender, Non-Distended, No Hepato-splenomegaly Extremities: No clubbing, No cyanosis, No edema, Capillary Refill Less than 3 Seconds Skin: No rashes, No breakdown Musculoskeletal: No Tenderness to Palpation of Joints or Extremities Lymphatic: No Cervical, Supraclavicular, or Inguinal Adenopathy Neurological: Cranial nerves II-XII grossly intact, Neuro grossly intact, Motor Exam 5/5 strength throughout Psych/Mental Status: Normal Affect, Appropriate, Alert and oriented to time, place, person, mood and affect Laboratory Results 06/10/18 16:22: POC Glucose 141 H 06/10/18 20:23: POC Glucose 165 H 06/11/18 05:50: PT 25.3 H, INR 2.3 06/11/18 05:55: POC Glucose 96 06/11/18 12:00: POC Glucose 95 Current Medications Acetaminophen (Tylenol) 650 mg PO Q8H PRN PRN Reason: Mild Pain (0-3/10)/Headache Al Hydroxide/Mg Hydroxide (Mylanta Ii) 10 ml PO 4X/DAY PRN PRN PRN Reason: INDIGESTION [facility] Last Admin: 06/11/18 07:41 Dose: 100 mg Amlodipine Besylate (Norvasc) 10 mg PO DAILY [facility] Last Admin: 06/11/18 09:21 Dose: Not Given Atenolol (Tenormin (Beta Britt)) 50 mg PO QHS [facility] Atorvastatin Calcium (Lipitor) 80 mg PO QHS [facility] Last Admin: 06/10/18 22:10 Dose: 80 mg Bisacodyl (Dulcolax) 10 mg RECTAL .PRN X 1 PRN PRN Reason: Constipation Glimepiride (Amaryl) [facility] Last Admin: 06/11/18 07:41 Dose: 2 mg Insulin Human Lispro (Humalog Kwikpen (Bkc)) 0 unit SC [facility]; Protocol Last Admin: 06/11/18 12:29 Dose: Not Given Magnesium Hydroxide (Milk Of Magnesia) 30 ml PO .PRN X 1 PRN PRN Reason: Constipation Multivitamins (Multivitamin) [facility] Last Admin: 06/11/18 07:41 Dose: 1 tablet Nystatin (Mycostatin Powder) 1 applic TOPICAL BID [facility]; Protocol Last Admin: 06/11/18 09:22 Dose: 1 applicatio Senna/Docusate Sodium (Senokot-S, Madelin-Colace) 2 tablet PO BID [facility] Last Admin: 06/11/18 09:16 Dose: Not Given Tamsulosin HCl (Flomax) 0.4 mg PO DAILY@0830 [facility] Last Admin: 06/11/18 07:41 Dose: 0.4 mg Warfarin Sodium (Coumadin (Pbkc)) 3 mg PO Alas@1700 [facility] Last Admin: 06/09/18 17:07 Dose: 3 mg Warfarin Sodium (Coumadin (Pbkc)) 6 mg PO MoTuWeThFrSa@1700 [facility] Last Admin: 06/10/18 18:19 Dose: 6 mg Medical Necessity - Tobacco Use Smoking Status: Former smoker Tobacco Use: Cigarettes Assessment/Plan 1. 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 INR todas is 2.3 on statin. neurology on board 3. Hypertension: on norvasc and atenolol 4. Aortic valvulopathy s/p replacement on coumadin 5/ Gout: on allopurinol 6. DM2: on ISS and glimepiride. Accuchecks ACHS. DVT prophylaxis: on coumadin Code Visit Inpatient E&M: 82046 Subs Hosp L2
--- NOTE | 2018-06-11 15:33 | PN_ITS ---
Subjective: Patient seen and examined. He had no complaints and felt well. He denied any fever chills, cough or chest pain, shortness of breath, abdominal pain, diarrhea vomiting. He has been tolerating physical therapy well. Labs and vitals reviewed. Vitals/I&O's: Vital Signs Temp Pulse Resp BP Pulse Ox 97.9 F 82 16 155/80 H 97 06/11/18 07:00 06/11/18 07:00 06/11/18 07:00 06/10/18 20:14 06/11/18 07:00 Oxygen Delivery Method Room Air Weight: 225 lb 7.468 oz Body Mass Index (BMI) 30.5 Finger Stick Blood Glucose 119 Intake and Output for Last 24 Hours 06/09/18 06/10/18 06/11/18 23:59 23:59 23:59 Intake Total 720 / 720 240 / 240 580 / 580 Balance 720 / 720 240 / 240 580 / 580 General: Alert, Oriented x3, Cooperative HEENT: Atraumatic, PERRLA, EOMI, Normocephalic Oral: Moist Mucosa Neck: Supple, No JVD, Negative Carotid Bruits Lungs: Clear to auscultation, Normal air movement, No rhonchi, No wheeze, No rales Cardiovascular: Regular rate, Regular Rhythm, Normal S1, Normal S2, No murmurs Abdomen: Bowel Sounds Present, Soft, Non Tender, Non-Distended, No Hepato- splenomegaly Extremities: No clubbing, No cyanosis, No edema, Capillary Refill Less than 3 Seconds Skin: No rashes, No breakdown Musculoskeletal: No Tenderness to Palpation of Joints or Extremities Lymphatic: No Cervical, Supraclavicular, or Inguinal Adenopathy Neurological: Cranial nerves II-XII grossly intact, Neuro grossly intact, Motor Exam 5/5 strength throughout Psych/Mental Status: Normal Affect, Appropriate, Alert and oriented to time, place, person, mood and affect Laboratory Results 06/10/18 16:22: POC Glucose 141 H 06/10/18 20:23: POC Glucose 165 H 06/11/18 05:50: PT 25.3 H, INR 2.3 06/11/18 05:55: POC Glucose 96 06/11/18 12:00: POC Glucose 95 Current Medications Acetaminophen (Tylenol) 650 mg PO Q8H PRN PRN Reason: Mild Pain (0-3/10)/Headache Al Hydroxide/Mg Hydroxide (Mylanta Ii) 10 ml PO 4X/DAY PRN PRN PRN Reason: INDIGESTION [facility] Last Admin: 06/11/18 07:41 Dose: 100 mg Amlodipine Besylate (Norvasc) 10 mg PO DAILY [facility] Last Admin: 06/11/18 09:21 Dose: Not Given Atenolol (Tenormin (Beta Britt)) 50 mg PO QHS [facility] Atorvastatin Calcium (Lipitor) 80 mg PO QHS [facility] Last Admin: 06/10/18 22:10 Dose: 80 mg Bisacodyl (Dulcolax) 10 mg RECTAL .PRN X 1 PRN PRN Reason: Constipation Glimepiride (Amaryl) [facility] Last Admin: 06/11/18 07:41 Dose: 2 mg Insulin Human Lispro (Humalog Kwikpen (Bkc)) 0 unit SC [facility]; Protocol Last Admin: 06/11/18 12:29 Dose: Not Given Magnesium Hydroxide (Milk Of Magnesia) 30 ml PO .PRN X 1 PRN PRN Reason: Constipation Multivitamins (Multivitamin) [facility] Last Admin: 06/11/18 07:41 Dose: 1 tablet Nystatin (Mycostatin Powder) 1 applic TOPICAL BID [facility]; Protocol Last Admin: 06/11/18 09:22 Dose: 1 applicatio Senna/Docusate Sodium (Senokot-S, Madelin-Colace) 2 tablet PO BID [facility] Last Admin: 06/11/18 09:16 Dose: Not Given Tamsulosin HCl (Flomax) 0.4 mg PO DAILY@0830 [facility] Last Admin: 06/11/18 07:41 Dose: 0.4 mg Warfarin Sodium (Coumadin (Pbkc)) 3 mg PO Alas@1700 [facility] Last Admin: 06/09/18 17:07 Dose: 3 mg Warfarin Sodium (Coumadin (Pbkc)) 6 mg PO MoTuWeThFrSa@1700 [facility] Last Admin: 06/10/18 18:19 Dose: 6 mg Medical Necessity - Tobacco Use Smoking Status: Former smoker Tobacco Use: Cigarettes Assessment/Plan 1. 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 INR todas is 2.3 * on statin. * neurology on board * 3. Hypertension: on norvasc and atenolol 4. Aortic valvulopathy s/p replacement * on coumadin * 5/ Gout: on allopurinol 6. DM2: on ISS and glimepiride. Accuchecks ACHS. DVT prophylaxis: on coumadin Code Visit Inpatient E&M: 82917 Subs Hosp L2
[2018-06-11 16:52] LABS: Bedside Glucose 154 mg/dL (70-110)
[2018-06-11] MEDS: Insulin Lispro 100 UNIT/ML INSULN.PEN SC ×2 (17:15→19:54)
[2018-06-11 19:30] VITALS: BP 114/79; PULSE 49; RESP 18; TEMP 36.8; O2SAT 95; BMI 30.5
[2018-06-11] MEDS: Atorvastatin Calcium 80 MG Tablet PO (19:54)
[2018-06-11 20:36] LABS: Bedside Glucose 189 mg/dL (70-110)
[2018-06-12 05:49] LABS: International Normalized Ratio 2.6; Prothrombin Time (Protime)PT. 27.8 SECONDS (11.7-14.9)
[2018-06-12 07:01] LABS: Bedside Glucose 109 mg/dL (70-110)
[2018-06-12 07:54] VITALS: BP 157/93; PULSE 86; RESP 16; TEMP 36.8; O2SAT 97
[2018-06-12] MEDS: Multivitamins,Therapeutic Tablet 1 TABLET PO (07:54)
[2018-06-12] MEDS: Allopurinol 100 MG Tablet PO (07:54)
[2018-06-12] MEDS: Glimepiride 2 MG Tablet PO (07:54)
[2018-06-12] MEDS: Tamsulosin HCl 0.4 MG Capsule PO (07:55)
[2018-06-12] MEDS: Nystatin Powder 15gm Bottle 1 APPLIC TOPICAL ×2 (07:56→22:14)
--- NOTE | 2018-06-12 09:47 | PCM.PN.NEU ---
Subjective: Patient seen, no new complaints. Tolerating therapy, denies any dizziness, blurry vision or headaches. - Physical Exam General: Alert, Oriented x3, Cooperative HEENT: Atraumatic, PERRLA, EOMI, Normocephalic Neck: Supple, No JVD, Negative Carotid Bruits Lungs: Clear to auscultation, Normal air movement Cardiovascular: Regular rate, No murmurs Abdomen: Bowel Sounds Present, Soft, Non Tender Extremities: No edema, Capillary Refill Less than 3 Seconds Skin: No rashes, No breakdown Musculoskeletal: No Tenderness to Palpation of Joints or Extremities Neurological: Cranial nerves II-XII grossly intact Psych/Mental Status: Normal Affect, Appropriate, Alert and oriented to time, place, person, mood and affect Vital Signs Temp Pulse Resp BP Pulse Ox 98.3 F 86 16 157/93 H 97 06/12/18 07:54 06/12/18 07:54 06/12/18 07:54 06/12/18 07:54 06/12/18 07:54 Oxygen Delivery Method Room Air Weight: 100.42 kg Body Mass Index (BMI) 30.5 Finger Stick Blood Glucose 119 Intake and Output for Last 24 Hours 06/10/18 06/11/18 06/12/18 23:59 23:59 23:59 Intake Total 240 / 240 820 / 820 Balance 240 / 240 820 / 820 Laboratory Tests Past 24 Hrs 06/12/18 05:05 PT 27.8 H INR 2.6 POC Glucose 06/12/18 06/11/18 06/11/18 06:51 19:52 16:43 POC Glucose 109 189 H 154 H 06/11/18 12:00 POC Glucose 95 Active Medications Acetaminophen (Tylenol) 650 mg PO Q8H PRN PRN Reason: Mild Pain (0-3/10)/Headache Al Hydroxide/Mg Hydroxide (Mylanta Ii) 10 ml PO 4X/DAY PRN PRN PRN Reason: INDIGESTION [facility]rim) [facility] Last Admin: 06/12/18 07:54 Dose: 100 mg Amlodipine Besylate (Norvasc) 10 mg PO DAILY [facility] Last Admin: 06/11/18 09:21 Dose: Not Given Atenolol (Tenormin (Beta Britt)) 50 mg PO QHS [facility] Last Admin: 06/11/18 19:54 Dose: Not Given Atorvastatin Calcium (Lipitor) 80 mg PO QHS [facility] Last Admin: 06/11/18 19:54 Dose: 80 mg Bisacodyl (Dulcolax) 10 mg RECTAL .PRN X 1 PRN PRN Reason: Constipation Glimepiride (Amaryl) 2 mg PO DAILYCM [facility] Last Admin: 06/12/18 07:54 Dose: 2 mg Insulin Human Lispro (Humalog Kwikpen (Bkc)) 0 unit SC [facility]; Protocol Last Admin: 06/12/18 07:13 Dose: Not Given Magnesium Hydroxide (Milk Of Magnesia) 30 ml PO .PRN X 1 PRN PRN Reason: Constipation Multivitamins (Multivitamin) [facility] Last Admin: 06/12/18 07:54 Dose: 1 tablet Nystatin (Mycostatin Powder) 1 applic TOPICAL BID [facility]; Protocol Last Admin: 06/12/18 07:56 Dose: 1 applicatio Senna/Docusate Sodium (Senokot-S, Madelin-Colace) 2 tablet PO BID [facility] Last Admin: 06/12/18 07:55 Dose: Not Given Tamsulosin HCl (Flomax) 0.4 mg PO DAILY@0830 [facility] Last Admin: 06/12/18 07:55 Dose: 0.4 mg Warfarin Sodium (Coumadin (Pbkc)) 3 mg PO Alas@1700 [facility] Last Admin: 06/09/18 17:07 Dose: 3 mg Warfarin Sodium (Coumadin (Pbkc)) 6 mg PO MoTuWeThFrSa@1700 [facility] Last Admin: 06/11/18 17:15 Dose: 6 mg Medical Necessity - Tobacco Use Smoking Status: Former smoker Tobacco Use: Cigarettes Assessment/Plan Debility status post 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 Goal of therapy is hoahaoism of prior level of functional independence. Complicated by mechanical aortic valve, diabetes and hypertension. Plan: Physical therapy for gait and balance Occupational Therapy for ADLs Speech therapy for dysarthria Mechanical aortic valve: Continue Coumadin keep INR 2.5-3.5 Allow blood pressure to remain high for now until 06/11/18 at which point aggressively treat his blood pressure unless it goes over 200 systolic => may aggressively treat BP Maintain < 130/80 Continue anti-glycemic agents Continue statin therapy
--- NOTE | 2018-06-12 09:51 | PN.NEURO_ITS ---
Subjective: Patient seen, no new complaints. Tolerating therapy, denies any dizziness, blurry vision or headaches. - Physical Exam General: Alert, Oriented x3, Cooperative HEENT: Atraumatic, PERRLA, EOMI, Normocephalic Neck: Supple, No JVD, Negative Carotid Bruits Lungs: Clear to auscultation, Normal air movement Cardiovascular: Regular rate, No murmurs Abdomen: Bowel Sounds Present, Soft, Non Tender Extremities: No edema, Capillary Refill Less than 3 Seconds Skin: No rashes, No breakdown Musculoskeletal: No Tenderness to Palpation of Joints or Extremities Neurological: Cranial nerves II-XII grossly intact Psych/Mental Status: Normal Affect, Appropriate, Alert and oriented to time, place, person, mood and affect Vital Signs Temp Pulse Resp BP Pulse Ox 98.3 F 86 16 157/93 H 97 06/12/18 07:54 06/12/18 07:54 06/12/18 07:54 06/12/18 07:54 06/12/18 07:54 Oxygen Delivery Method Room Air Weight: 100.42 kg Body Mass Index (BMI) 30.5 Finger Stick Blood Glucose 119 Intake and Output for Last 24 Hours 06/10/18 06/11/18 06/12/18 23:59 23:59 23:59 Intake Total 240 / 240 820 / 820 Balance 240 / 240 820 / 820 Laboratory Tests Past 24 Hrs 06/12/18 05:05 PT 27.8 H INR 2.6 POC Glucose 06/12/18 06/11/18 06/11/18 06:51 19:52 16:43 POC Glucose 109 189 H 154 H 06/11/18 12:00 POC Glucose 95 Active Medications Acetaminophen (Tylenol) 650 mg PO Q8H PRN PRN Reason: Mild Pain (0-3/10)/Headache Al Hydroxide/Mg Hydroxide (Mylanta Ii) 10 ml PO 4X/DAY PRN PRN PRN Reason: INDIGESTION [facility]) [facility] Last Admin: 06/12/18 07:54 Dose: 100 mg Amlodipine Besylate (Norvasc) 10 mg PO DAILY [facility] Last Admin: 06/11/18 09:21 Dose: Not Given Atenolol (Tenormin (Beta Britt)) 50 mg PO QHS [facility] Last Admin: 06/11/18 19:54 Dose: Not Given Atorvastatin Calcium (Lipitor) 80 mg PO QHS [facility] Last Admin: 06/11/18 19:54 Dose: 80 mg Bisacodyl (Dulcolax) 10 mg RECTAL .PRN X 1 PRN PRN Reason: Constipation Glimepiride (Amaryl) 2 mg PO DAILYCM [facility] Last Admin: 06/12/18 07:54 Dose: 2 mg Insulin Human Lispro (Humalog Kwikpen (Bkc)) 0 unit SC [facility]; Protocol Last Admin: 06/12/18 07:13 Dose: Not Given Magnesium Hydroxide (Milk Of Magnesia) 30 ml PO .PRN X 1 PRN PRN Reason: Constipation Multivitamins ([facility]ivitamin) [facility] Last Admin: 06/12/18 07:54 Dose: 1 tablet Nystatin (Mycostatin Powder) 1 applic TOPICAL BID [facility]; Protocol Last Admin: 06/12/18 07:56 Dose: 1 applicatio Senna/Docusate Sodium (Senokot-S, Madelin-Colace) 2 tablet PO BID [facility] Last Admin: 06/12/18 07:55 Dose: Not Given Tamsulosin HCl (Flomax) 0.4 mg PO DAILY@0830 [facility] Last Admin: 06/12/18 07:55 Dose: 0.4 mg Warfarin Sodium (Coumadin (Pbkc)) 3 mg PO Alas@1700 [facility] Last Admin: 06/09/18 17:07 Dose: 3 mg Warfarin Sodium (Coumadin (Pbkc)) 6 mg PO MoTuWeThFrSa@1700 [facility] Last Admin: 06/11/18 17:15 Dose: 6 mg Medical Necessity - Tobacco Use Smoking Status: Former smoker Tobacco Use: Cigarettes Assessment/Plan Debility status post 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 Goal of therapy is anabaptism of prior level of functional independence. Complicated by mechanical aortic valve, diabetes and hypertension. Plan: Physical therapy for gait and balance Occupational Therapy for ADLs Speech therapy for dysarthria Mechanical aortic valve: Continue Coumadin keep INR 2.5-3.5 Allow blood pressure to remain high for now until 06/11/18 at which point aggressively treat his blood pressure unless it goes over 200 systolic => may aggressively treat BP Maintain < 130/80 Continue anti-glycemic agents Continue statin therapy
[2018-06-12 11:10] LABS: Bedside Glucose 104 mg/dL (70-110)
[2018-06-12] MEDS: amLODIPine 10 MG Tablet PO (11:32)
[2018-06-12 13:59] VITALS: BMI 30.5
[2018-06-12 16:35] LABS: Bedside Glucose 122 mg/dL (70-110)
[2018-06-12 22:00] VITALS: BP 148/76; PULSE 70; RESP 16; TEMP 36.8; O2SAT 97
[2018-06-12] MEDS: Atorvastatin Calcium 80 MG Tablet PO (22:14)
[2018-06-12] MEDS: Senna/Docusate Sodium 1 Tablet 2 TABLET PO (22:16)
[2018-06-12] MEDS: Atenolol 50 MG Tablet PO (22:16)
[2018-06-12 22:26] LABS: Bedside Glucose 125 mg/dL (70-110)
--- NOTE | 2018-06-12 23:33 | NURSING ---
Loud boom noted coming from pt room. upon entering pt room, pt's cane noted to be on the floor- which was cause of sound. pt noted to be in restroom per self without any assistive device- call light still attached to pt bed. this nurse reminded pt that he is to use call light for assistance with any needs he may have including toileting. pt upset. PA now in place. bed rails x3 up. call light tied to bed railing within pt reach. pt reminded of call light use and agrees. will continue to monitor.
[2018-06-13 00:46] VITALS: BMI 30.5
[2018-06-13 06:46] LABS: Bedside Glucose 105 mg/dL (70-110)
[2018-06-13 06:59] LABS: International Normalized Ratio 2.8; Prothrombin Time (Protime)PT. 29.5 SECONDS (11.7-14.9)
[2018-06-13] MEDS: Glimepiride 2 MG Tablet PO (07:25)
[2018-06-13] MEDS: Nystatin Powder 15gm Bottle 1 APPLIC TOPICAL ×2 (07:25→20:53)
[2018-06-13] MEDS: amLODIPine 10 MG Tablet PO (07:25)
[2018-06-13] MEDS: Multivitamins,Therapeutic Tablet 1 TABLET PO (07:25)
[2018-06-13] MEDS: Allopurinol 100 MG Tablet PO (07:25)
[2018-06-13] MEDS: Tamsulosin HCl 0.4 MG Capsule PO (07:25)
[2018-06-13 08:11] VITALS: BP 119/62; PULSE 60; RESP 16; TEMP 36.6; O2SAT 94
--- NOTE | 2018-06-13 09:54 | PCM.PN.NEU ---
Subjective: Staffed in team meeting. Family was not at bedside, questions answered. With Physical therapy, he is able to walk 225 feet with a wheel walker, he is MOD I for bed mobility, getting in and out of the bed. He has gone up 2 steps at stand by assist. He did the TUG test in 19.5 seconds, his sit to stand test he was able to do 6 stands in 30 seconds. With Occupational therapy, he is stand by assist to get his clothing on and is able to do toileting at a distance. He is stand by assist for getting into the shower. With Speech therapy, eating he is doing well regular texture diet with thin liquids. They have been working on voice and speech improvement, they have started cognitive assessment as well. With nursing, his blood sugar is stable his INR is 2.8, he has been sleeping well. The plan is for discharge on Sunday with Home Health, Physical therapy and Occupational therapy. He will be made MOD I today in preparation for discharge. - Physical Exam General: Alert, Oriented x3, Cooperative HEENT: Atraumatic, PERRLA, EOMI, Normocephalic Neck: Supple, No JVD, Negative Carotid Bruits Lungs: Clear to auscultation, Normal air movement Cardiovascular: Regular rate, No murmurs Abdomen: Bowel Sounds Present, Soft, Non Tender Extremities: No edema, Capillary Refill Less than 3 Seconds Skin: No rashes, No breakdown Musculoskeletal: No Tenderness to Palpation of Joints or Extremities Neurological: Cranial nerves II-XII grossly intact Psych/Mental Status: Normal Affect, Appropriate, Alert and oriented to time, place, person, mood and affect Vital Signs Temp Pulse Resp BP Pulse Ox 97.9 F 60 16 119/62 94 06/13/18 08:11 06/13/18 08:11 06/13/18 08:11 06/13/18 08:11 06/13/18 08:11 Oxygen Delivery Method Room Air Weight: 101.4 kg Body Mass Index (BMI) 30.5 Finger Stick Blood Glucose 119 Intake and Output for Last 24 Hours 06/11/18 06/12/18 06/13/18 23:59 23:59 23:59 Intake Total 820 / 820 240 / 240 Balance 820 / 820 240 / 240 Laboratory Tests Past 24 Hrs 06/13/18 06:38 PT 29.5 H INR 2.8 POC Glucose 06/13/18 06/12/18 06/12/18 06:37 22:13 16:29 POC Glucose 105 125 H 122 H 06/12/18 11:05 POC Glucose 104 Active Medications Acetaminophen (Tylenol) 650 mg PO Q8H PRN PRN Reason: Mild Pain (0-3/10)/Headache Al Hydroxide/Mg Hydroxide (Mylanta Ii) 10 ml PO 4X/DAY PRN PRN PRN Reason: INDIGESTION Albuterol Sulfate (Ventolin Aerosols) 2.5 mg INHALATION Q6H.RT PRN PRN Reason: WHEEZING OR COUGH [facility] Admin: 06/13/18 07:25 Dose: 100 mg Amlodipine Besylate (Norvasc) 10 mg PO DAILY [facility] Last Admin: 06/13/18 07:25 Dose: 10 mg Atenolol (Tenormin (Beta Britt)) 50 mg PO QHS [facility] Last Admin: 06/12/18 22:16 Dose: 50 mg Atorvastatin Calcium (Lipitor) 80 mg PO QHS [facility] Last Admin: 06/12/18 22:14 Dose: 80 mg Bisacodyl (Dulcolax) 10 mg RECTAL .PRN X 1 PRN PRN Reason: Constipation Glimepiride (Amaryl) [facility] Last Admin: 06/13/18 07:25 Dose: 2 mg Insulin Human Lispro (Humalog Kwikpen (Bkc)) 0 unit SC [facility]; Protocol Last Admin: 06/13/18 07:24 Dose: Not Given Magnesium Hydroxide (Milk Of Magnesia) 30 ml PO .PRN X 1 PRN PRN Reason: Constipation Multivitamins (Multivitamin) [facility] Last Admin: 06/13/18 07:25 Dose: 1 tablet Nystatin (Mycostatin Powder) 1 applic TOPICAL BID [facility]; Protocol Last Admin: 06/13/18 07:25 Dose: 1 applicatio Senna/Docusate Sodium (Senokot-S, Madelin-Colace) 2 tablet PO BID [facility] Last Admin: 06/13/18 07:25 Dose: Not Given Tamsulosin HCl (Flomax) 0.4 mg PO DAILY@0830 [facility] Last Admin: 06/13/18 07:25 Dose: 0.4 mg Warfarin Sodium (Coumadin (Pbkc)) 3 mg PO Alas@1700 [facility] Last Admin: 06/09/18 17:07 Dose: 3 mg Warfarin Sodium (Coumadin (Pbkc)) 6 mg PO MoTuWeThFrSa@1700 [facility] Last Admin: 06/12/18 17:11 Dose: 6 mg Medical Necessity - Tobacco Use Smoking Status: Former smoker Tobacco Use: Cigarettes Assessment/Plan Debility status post 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 Complicated by mechanical aortic valve, diabetes and hypertension. Goal of therapy is pentecostal of prior level of functional independence. Plan: Physical therapy for gait and balance Occupational Therapy for ADLs Speech therapy for dysarthria Mechanical aortic valve: Continue Coumadin keep INR 2.5-3.5 Allow blood pressure to remain high for now until 06/11/18 at which point aggressively treat his blood pressure unless it goes over 200 systolic => may aggressively treat BP Maintain < 130/80 Continue anti-glycemic agents Continue statin therapy Plan is for discharge on Sunday home with Home berenice to include Physical therapy and Occupational therapy MOD I today in preparation for discharge
--- NOTE | 2018-06-13 10:09 | PN.NEURO_ITS ---
Subjective: Staffed in team meeting. Family was not at bedside, questions answered. With Physical therapy, he is able to walk 225 feet with a wheel walker, he is MOD I for bed mobility, getting in and out of the bed. He has gone up 2 steps at stand by assist. He did the TUG test in 19.5 seconds, his sit to stand test he was able to do 6 stands in 30 seconds. With Occupational therapy, he is stand by assist to get his clothing on and is able to do toileting at a distance. He is stand by assist for getting into the shower. With Speech therapy, eating he is doing well regular texture diet with thin liquids. They have been working on voice and speech improvement, they have started cognitive assessment as well. With nursing, his blood sugar is stable his INR is 2.8, he has been sleeping well. The plan is for discharge on Sunday with Home Health, Physical therapy and Occupational therapy. He will be made MOD I today in preparation for discharge. - Physical Exam General: Alert, Oriented x3, Cooperative HEENT: Atraumatic, PERRLA, EOMI, Normocephalic Neck: Supple, No JVD, Negative Carotid Bruits Lungs: Clear to auscultation, Normal air movement Cardiovascular: Regular rate, No murmurs Abdomen: Bowel Sounds Present, Soft, Non Tender Extremities: No edema, Capillary Refill Less than 3 Seconds Skin: No rashes, No breakdown Musculoskeletal: No Tenderness to Palpation of Joints or Extremities Neurological: Cranial nerves II-XII grossly intact Psych/Mental Status: Normal Affect, Appropriate, Alert and oriented to time, place, person, mood and affect Vital Signs Temp Pulse Resp BP Pulse Ox 97.9 F 60 16 119/62 94 06/13/18 08:11 06/13/18 08:11 06/13/18 08:11 06/13/18 08:11 06/13/18 08:11 Oxygen Delivery Method Room Air Weight: 101.4 kg Body Mass Index (BMI) 30.5 Finger Stick Blood Glucose 119 Intake and Output for Last 24 Hours 06/11/18 06/12/18 06/13/18 23:59 23:59 23:59 Intake Total 820 / 820 240 / 240 Balance 820 / 820 240 / 240 Laboratory Tests Past 24 Hrs 06/13/18 06:38 PT 29.5 H INR 2.8 POC Glucose 06/13/18 06/12/18 06/12/18 06:37 22:13 16:29 POC Glucose 105 125 H 122 H 06/12/18 11:05 POC Glucose 104 Active Medications Acetaminophen (Tylenol) 650 mg PO Q8H PRN PRN Reason: Mild Pain (0-3/10)/Headache Al Hydroxide/Mg Hydroxide (Mylanta Ii) 10 ml PO 4X/DAY PRN PRN PRN Reason: INDIGESTION Albuterol Sulfate (Ventolin Aerosols) 2.5 mg INHALATION Q6H.RT PRN PRN Reason: WHEEZING OR COUGH [facility] Admin: 06/13/18 07:25 Dose: 100 mg Amlodipine Besylate (Norvasc) 10 mg PO DAILY [facility] Last Admin: 06/13/18 07:25 Dose: 10 mg Atenolol (Tenormin (Beta Britt)) 50 mg PO QHS [facility] Last Admin: 06/12/18 22:16 Dose: 50 mg Atorvastatin Calcium (Lipitor) 80 mg PO QHS [facility] Last Admin: 06/12/18 22:14 Dose: 80 mg Bisacodyl (Dulcolax) 10 mg RECTAL .PRN X 1 PRN PRN Reason: Constipation Glimepir[facility] (Amaryl) [facility] Last Admin: 06/13/18 07:25 Dose: 2 mg Insulin Human Lispro (Humalog Kwikpen (Bkc)) 0 unit SC [facility]; Protocol Last Admin: 06/13/18 07:24 Dose: Not Given Magnesium Hydroxide (Milk Of Magnesia) 30 ml PO .PRN X 1 PRN PRN Reason: Constipation Multivitamins (Multivitamin) [facility] Last Admin: 06/13/18 07:25 Dose: 1 tablet Nystatin (Mycostatin Powder) 1 applic TOPICAL BID [facility]; Protocol Last Admin: 06/13/18 07:25 Dose: 1 applicatio Senna/Docusate Sodium (Senokot-S, Madelin-Colace) 2 tablet PO BID [facility] Last Admin: 06/13/18 07:25 Dose: Not Given Tamsulosin HCl (Flomax) 0.4 mg PO DAILY@0830 [facility] Last Admin: 06/13/18 07:25 Dose: 0.4 mg Warfarin Sodium (Coumadin (Pbkc)) 3 mg PO Alas@1700 [facility] Last Admin: 06/09/18 17:07 Dose: 3 mg Warfarin Sodium (Coumadin (Pbkc)) 6 mg PO MoTuWeThFrSa@1700 [facility] Last Admin: 06/12/18 17:11 Dose: 6 mg Medical Necessity - Tobacco Use Smoking Status: Former smoker Tobacco Use: Cigarettes Assessment/Plan 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 Complicated by mechanical aortic valve, diabetes and hypertension. Goal of therapy is pentecostalism of prior level of functional independence. Plan: Physical therapy for gait and balance Occupational Therapy for ADLs Speech therapy for dysarthria Mechanical aortic valve: Continue Coumadin keep INR 2.5-3.5 Allow blood pressure to remain high for now until 06/11/18 at which point aggressively treat his blood pressure unless it goes over 200 systolic => may aggressively treat BP Maintain < 130/80 Continue anti-glycemic agents Continue statin therapy Plan is for discharge on Sunday home with Home berenice to include Physical therapy and Occupational therapy MOD I today in preparation for discharge
--- NOTE | 2018-06-13 10:31 | CASEMGMT ---
Team meeting held. Patient present, no support person present. Collaborating with team and patient, discharge date set for 06/15/18. Patient plans to discharge to home alone. Physical and Occupational therapy are recommending for patient to continue with services through home health care. Patient is agreeable to recommendation and requesting for home health care to be set up through [facility] ([facility] Patient reporting to have all needed durable medical equipment needs within the home. Patient reporting that patient son's will provide transportation home for patient at time of discharge. Patient declining for this social studies department chair to contact patient family in regards to discharge date/plan. Support given. [facility] This social studies department chair making referral for physical and occupational therapy. Orders faxed. Proposed discharge date: 06/15/18 PLAN: Discharge to home alone with home health care. ZACH Hernandez, COARSE WIRE DRAWER
[2018-06-13 12:11] LABS: Bedside Glucose 73 mg/dL (70-110)
[2018-06-13 12:46] LABS: Hemoglobin A1c 6.2 % (4.2-6.3)
[2018-06-13 13:46] VITALS: BMI 30.5
[2018-06-13 17:00] LABS: Bedside Glucose 111 mg/dL (70-110)
[2018-06-13] MEDS: Atenolol 50 MG Tablet PO (20:53)
[2018-06-13] MEDS: Atorvastatin Calcium 80 MG Tablet PO (20:53)
[2018-06-13 21:01] LABS: Bedside Glucose 139 mg/dL (70-110)
[2018-06-13 21:02] VITALS: BP 127/70; PULSE 74; RESP 18; TEMP 37; O2SAT 95
[2018-06-13 21:31] LABS: Bedside Glucose 124 mg/dL (70-110)
[2018-06-14 03:52] VITALS: BMI 30.5
--- NOTE | 2018-06-14 05:04 | NURSING ---
Reviewed and agree with LPNs fims and handoff
[2018-06-14 07:23] LABS: International Normalized Ratio 3.1; Prothrombin Time (Protime)PT. 32.5 SECONDS (11.7-14.9)
[2018-06-14 08:36] LABS: Bedside Glucose 118 mg/dL (70-110)
[2018-06-14 09:42] VITALS: BP 148/81; PULSE 63; RESP 16; TEMP 36.6; O2SAT 97
[2018-06-14] MEDS: Nystatin Powder 15gm Bottle 1 APPLIC TOPICAL ×2 (09:48→21:16)
[2018-06-14] MEDS: Allopurinol 100 MG Tablet PO (09:48)
[2018-06-14] MEDS: Tamsulosin HCl 0.4 MG Capsule PO (09:48)
[2018-06-14] MEDS: Multivitamins,Therapeutic Tablet 1 TABLET PO (09:48)
[2018-06-14] MEDS: amLODIPine 10 MG Tablet PO (09:48)
[2018-06-14] MEDS: Glimepiride 2 MG Tablet PO (09:48)
--- NOTE | 2018-06-14 09:59 | PCM.RU.DC ---
Rehab Discharge Summary DATE OF ADMISSION: 06/06/18 DATE OF DISCHARGE: 06/15/2018 - Rehab Diagnosis CVA - Physical Exam General: Alert, Oriented x3, Cooperative HEENT: Atraumatic, PERRLA, EOMI, Normocephalic Neck: Supple, No JVD, Negative Carotid Bruits Lungs: Clear to auscultation, Normal air movement Cardiovascular: Regular rate, No murmurs Abdomen: Bowel Sounds Present, Soft, Non Tender Extremities: No edema, Capillary Refill Less than 3 Seconds Skin: No rashes, No breakdown Musculoskeletal: No Tenderness to Palpation of Joints or Extremities Neurological: Cranial nerves II-XII grossly intact Psych/Mental Status: Normal Affect, Appropriate, Alert and oriented to time, place, person, mood and affect Vital Signs Temp Pulse Resp BP Pulse Ox 98 F 63 16 148/81 H 97 06/14/18 09:42 06/14/18 09:42 06/14/18 09:42 06/14/18 09:42 06/14/18 09:42 Oxygen Delivery Method Room Air Weight: 101.4 kg Body Mass Index (BMI) 30.5 Finger Stick Blood Glucose 119 Intake and Output for Last 24 Hours 06/12/18 06/13/18 06/14/18 23:59 23:59 23:59 Intake Total 240 / 240 Balance 240 / 240 Laboratory Tests Past 24 Hrs 06/13/18 06/14/18 11:55 06:28 PT 32.5 H INR 3.1 Hemoglobin A1c 6.2 POC Glucose 06/14/18 06/13/18 06/13/18 07:42 21:21 20:52 POC Glucose 118 H 124 H 139 H 06/13/18 06/13/18 16:41 12:04 POC Glucose 111 H 73 Active Medications Acetaminophen (Tylenol) 650 mg PO Q8H PRN PRN Reason: Mild Pain (0-3/10)/Headache Al Hydroxide/Mg Hydroxide (Mylanta Ii) 10 ml PO 4X/DAY PRN PRN PRN Reason: INDIGESTION Albuterol Sulfate (Ventolin Aerosols) 2.5 mg INHALATION Q6H.RT PRN PRN Reason: WHEEZING OR COUGH [facility] Admin: 06/14/18 09:48 Dose: 100 mg Amlodipine Besylate (Norvasc) 10 mg PO DAILY [facility] Last Admin: 06/14/18 09:48 Dose: 10 mg Atenolol (Tenormin (Beta Britt)) 50 mg PO QHS [facility] Last Admin: 06/13/18 20:53 Dose: 50 mg Atorvastatin Calcium (Lipitor) 80 mg PO QHS [facility] Last Admin: 06/13/18 20:53 Dose: 80 mg Bisacodyl (Dulcolax) 10 mg RECTAL .PRN X 1 PRN PRN Reason: Constipation Glimepiride (Amaryl) [facility] Last Admin: 06/14/18 09:48 Dose: 2 mg Insulin Human Lispro (Humalog Kwikpen (Bkc)) 0 unit SC [facility]; Protocol Last Admin: 06/14/18 07:43 Dose: Not Given Magnesium Hydroxide (Milk Of Magnesia) 30 ml PO .PRN X 1 PRN PRN Reason: Constipation Multivitamins (Multivitamin) [facility] Last Admin: 06/14/18 09:48 Dose: 1 tablet Nystatin (Mycostatin Powder) 1 applic TOPICAL BID [facility]; Protocol Last Admin: 06/14/18 09:48 Dose: 1 applicatio Senna/Docusate Sodium (Senokot-S, Madelin-Colace) 2 tablet PO BID [facility] Last Admin: 06/14/18 09:40 Dose: Not Given Tamsulosin HCl (Flomax) 0.4 mg PO DAILY@0830 [facility] Last Admin: 06/14/18 09:48 Dose: 0.4 mg Warfarin Sodium (Coumadin (Pbkc)) 3 mg PO Alas@1700 [facility] Last Admin: 06/09/18 17:07 Dose: 3 mg Warfarin Sodium (Coumadin (Pbkc)) 6 mg PO MoTuWeThFrSa@1700 [facility] Last Admin: 06/13/18 17:36 Dose: 6 mg Discharge Diet: 1999 Calorie Control Diet Discharge Activity: May Not Drive, May Shower, May Take a Tub Bath, Use Walker Weight Bearing Status: Weight bearing as tolerated Call your doctor if you observe: Fever of 101 or Higher, Coldness, Increased Pain, Numbness or Tingling, Change in Color, Inability to urinate, Inability to have a bowel movement, Using more than one pad per hour, Shortness of breath, Dizziness, Fainting spells, Swelling in the ankles, Chest pain, Prolonged hiccoughing, Increased palpitations (irregular heartbeat), Calf discomfort, Uncontrolled pain Home Medications: Medications to take at Discharge Allopurinol [Zyloprim] 100 mg PO DAILYCM 05/27/15 Glimepiride [Amaryl] 2 mg PO DAILY 05/27/15 Multivitamins,Therapeutic [Multivitamin] 1 tablet PO DAILY 05/27/15 Acetaminophen [Tylenol Tablet] 650 mg PO Q8H PRN tablet 06/13/18 Amlodipine [Norvasc] 10 mg PO DAILY #30 tablet 06/13/18 Atenolol [Tenormin] 50 mg PO QHS #30 tablet 06/13/18 Atorvastatin Calcium [Lipitor] 80 mg PO QHS #30 tablet 06/13/18 Tamsulosin HCl [Flomax] 0.4 mg PO DAILY #30 capsule 06/13/18 Warfarin Sodium 3 mg PO ALAS #30 tablet 06/13/18 Warfarin Sodium 6 mg PO MOTUWETHFRSA #180 tablet 06/13/18 Following Prescrptions Were Given to Patient: Amlodipine [Norvasc] 10 mg PO DAILY #30 tablet Atenolol [Tenormin] 50 mg PO QHS #30 tablet Atorvastatin Calcium [Lipitor] 80 mg PO QHS #30 tablet Tamsulosin HCl [Flomax] 0.4 mg PO DAILY #30 capsule Warfarin Sodium 6 mg PO MOTUWETHFRSA #180 tablet Warfarin Sodium 3 mg PO ALAS #30 tablet Primary Care Physician: Andres Arce DO [Primary Care Provider] - Please Follow Up With: Andres Arce DO Please Follow Up With: [facility] When: August 09, 2018 @ 1PM Disposition: Home with Home Health Minutes spent on discharge:: 40 Patient Condition:: Good Rehab Course Mister Dahl is a 78-year-old right-handed male on Coumadin anticoagulation due to a mechanical aortic valve, who was admitted to the hospital 3 days ago with weakness and slurred speech. His INR was therapeutic on admission. 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 Other workup was negative including echocardiogram and he remained sinus rhythm on telemetry. Therapies were initiated and well tolerated. Rehab was considered and it was felt that his debility mitigated a short inpatient stay in the rehab unit to return him home to his prior level of functional independence. He does live with family at home. Has a history of hypertension, diabetes, he is a non-smoker. While in the Rehab Unit (RU) his other medical conditions were monitored. While in the RU he improved with therapy and gained strength. He is scheduled to be discharged home with Home Health on Sunday06/15/2018 with Home health. Summary of Care: Physical therapy for gait and balance Occupational Therapy for ADLs Speech therapy for dysarthria Mechanical aortic valve: Continue Coumadin keep INR 2.5-3.5 Allow blood pressure to remain high for now until 06/11/18 at which point aggressively treat his blood pressure unless it goes over 200 systolic => may aggressively treat BP Maintain < 130/80 Continue anti-glycemic agents Continue statin therapy Plan is for discharge on Sunday home with Home berenice to include Physical therapy and Occupational therapy MOD I today in preparation for discharge Summary of Therapy Sessions: With Physical therapy, he is able to walk 225 feet with a wheel walker, he is MOD I for bed mobility, getting in and out of the bed. He has gone up 2 steps at stand by assist. He did the TUG test in 19.5 seconds, his sit to stand test he was able to do 6 stands in 30 seconds. With Occupational therapy, he is stand by assist to get his clothing on and is able to do toileting at a distance. He is stand by assist for getting into the shower. With Speech therapy, eating he is doing well regular texture diet with thin liquids. They have been working on voice and speech improvement, they have started cognitive assessment as well. With nursing, his blood sugar is stable his INR is 2.8, he has been sleeping well. The plan is for discharge on Sunday with Home Health, Physical therapy and Occupational therapy. He will be made MOD I today in preparation for discharge. Meaningful Use Info Meaningful Use Diagnoses (Choose all that apply): Ischemic CVA - CVA Therapy Assessed for PT,OT and/or ST?: Yes - Ischemic Stroke Antithrombotic order at d/c?: Yes Dx of Atrial fib/flutter?: No Anticoagulant at discharge?: Yes Statins at discharge?: Yes Primary Dx Acute Ischemic CVA?: Yes IV tPA ordered during stay?: No Reason IV t-PA not ordered: Medical Contraindication - he was on Coumadin at time of encounter and levels were therapeutic
--- NOTE | 2018-06-14 10:11 | DS.PCM_ITS ---
Rehab Discharge Summary DATE OF ADMISSION: 06/06/18 DATE OF DISCHARGE: 06/15/2018 - Rehab Diagnosis CVA - Physical Exam General: Alert, Oriented x3, Cooperative HEENT: Atraumatic, PERRLA, EOMI, Normocephalic Neck: Supple, No JVD, Negative Carotid Bruits Lungs: Clear to auscultation, Normal air movement Cardiovascular: Regular rate, No murmurs Abdomen: Bowel Sounds Present, Soft, Non Tender Extremities: No edema, Capillary Refill Less than 3 Seconds Skin: No rashes, No breakdown Musculoskeletal: No Tenderness to Palpation of Joints or Extremities Neurological: Cranial nerves II-XII grossly intact Psych/Mental Status: Normal Affect, Appropriate, Alert and oriented to time, place, person, mood and affect Vital Signs Temp Pulse Resp BP Pulse Ox 98 F 63 16 148/81 H 97 06/14/18 09:42 06/14/18 09:42 06/14/18 09:42 06/14/18 09:42 06/14/18 09:42 Oxygen Delivery Method Room Air Weight: 101.4 kg Body Mass Index (BMI) 30.5 Finger Stick Blood Glucose 119 Intake and Output for Last 24 Hours 06/12/18 06/13/18 06/14/18 23:59 23:59 23:59 Intake Total 240 / 240 Balance 240 / 240 Laboratory Tests Past 24 Hrs 06/13/18 06/14/18 11:55 06:28 PT 32.5 H INR 3.1 Hemoglobin A1c 6.2 POC Glucose 06/14/18 06/13/18 06/13/18 07:42 21:21 20:52 POC Glucose 118 H 124 H 139 H 06/13/18 06/13/18 16:41 12:04 POC Glucose 111 H 73 Active Medications Acetaminophen (Tylenol) 650 mg PO Q8H PRN PRN Reason: Mild Pain (0-3/10)/Headache Al Hydroxide/Mg Hydroxide (Mylanta Ii) 10 ml PO 4X/DAY PRN PRN PRN Reason: INDIGESTION Albuterol Sulfate (Ventolin Aerosols) 2.5 mg INHALATION Q6H.RT PRN PRN Reason: WHEEZING OR COUGH [facility]) [facility] Last Admin: 06/14/18 09:48 Dose: 100 mg Amlodipine Besylate (Norvasc) 10 mg PO DAILY [facility] Last Admin: 06/14/18 09:48 Dose: 10 mg Atenolol (Tenormin (Beta Britt)) 50 mg PO QHS [facility] Last Admin: 06/13/18 20:53 Dose: 50 mg Atorvastatin Calcium (Lipitor) 80 mg PO QHS [facility] Last Admin: 06/13/18 20:53 Dose: 80 mg Bisacodyl (Dulcolax) 10 mg RECTAL .PRN X 1 PRN PRN Reason: Constipation Glimepiride (Amaryl) [facility] Last Admin: 06/14/18 09:48 Dose: 2 mg Insulin Human Lispro (Humalog Kwikpen (Bkc)) 0 unit SC [facility]; Protocol Last Admin: 06/14/18 07:43 Dose: Not Given Magnesium Hydroxide (Milk Of Magnesia) 30 ml PO .PRN X 1 PRN PRN Reason: Constipation Multivitamins (Multivitamin) [facility] Last Admin: 06/14/18 09:48 Dose: 1 tablet Nystatin (Mycostatin Powder) 1 applic TOPICAL BID [facility]; Protocol Last Admin: 06/14/18 09:48 Dose: 1 applicatio Senna/Docusate Sodium (Senokot-S, Madelin-Colace) 2 tablet PO BID [facility] Last Admin: 06/14/18 09:40 Dose: Not Given Tamsulosin HCl (Flomax) 0.4 mg PO DAILY@0830 [facility] Last Admin: 06/14/18 09:48 Dose: 0.4 mg Warfarin Sodium (Coumadin (Pbkc)) 3 mg PO Alas@1700 [facility] Last Admin: 06/09/18 17:07 Dose: 3 mg Warfarin Sodium (Coumadin (Pbkc)) 6 mg PO MoTuWeThFrSa@1700 [facility] Last Admin: 06/13/18 17:36 Dose: 6 mg Discharge Diet: 1999 Calorie Control Diet Discharge Activity: May Not Drive, May Shower, May Take a Tub Bath, Use Walker Weight Bearing Status: Weight bearing as tolerated Call your doctor if you observe: Fever of 101 or Higher, Coldness, Increased Pain, Numbness or Tingling, Change in Color, Inability to urinate, Inability to have a bowel movement, Using more than one pad per hour, Shortness of breath, Dizziness, Fainting spells, Swelling in the ankles, Chest pain, Prolonged hiccoughing, Increased palpitations (irregular heartbeat), Calf discomfort, Uncontrolled pain Home Medications: Medications to take at Discharge Allopurinol [Zyloprim] 100 mg PO DAILYCM 05/27/15 Glimepiride [Amaryl] 2 mg PO DAILY 05/27/15 Multivitamins,Therapeutic [Multivitamin] 1 tablet PO DAILY 05/27/15 Acetaminophen [Tylenol Tablet] 650 mg PO Q8H PRN tablet 06/13/18 Amlodipine [Norvasc] 10 mg PO DAILY #30 tablet 06/13/18 Atenolol [Tenormin] 50 mg PO QHS #30 tablet 06/13/18 Atorvastatin Calcium [Lipitor] 80 mg PO QHS #30 tablet 06/13/18 Tamsulosin HCl [Flomax] 0.4 mg PO DAILY #30 capsule 06/13/18 Warfarin Sodium 3 mg PO ALAS #30 tablet 06/13/18 Warfarin Sodium 6 mg PO MOTUWETHFRSA #180 tablet 06/13/18 Following Prescrptions Were Given to Patient: Amlodipine [Norvasc] 10 mg PO DAILY #30 tablet Atenolol [Tenormin] 50 mg PO QHS #30 tablet Atorvastatin Calcium [Lipitor] 80 mg PO QHS #30 tablet Tamsulosin HCl [Flomax] 0.4 mg PO DAILY #30 capsule Warfarin Sodium 6 mg PO MOTUWETHFRSA #180 tablet Warfarin Sodium 3 mg PO ALAS #30 tablet Primary Care Physician: Andres Arce DO [Primary Care Provider] - Please Follow Up With: Andres Arce DO Please Follow Up With: [facility] When: August 09, 2018 @ 1PM Disposition: Home with Home Health Minutes spent on discharge:: 40 Patient Condition:: Good Rehab Course Mister Dahl is a 78-year-old right-handed male on Coumadin anticoagulation due to a mechanical aortic valve, who was admitted to the hospital 3 days ago with weakness and slurred speech. His INR was therapeutic on admission. 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 Other workup was negative including echocardiogram and he remained sinus rhythm on telemetry. Therapies were initiated and well tolerated. Rehab was considered and it was felt that his debility mitigated a short inpatient stay in the rehab unit to return him home to his prior level of functional independence. He does live with family at home. Has a history of hypertension, diabetes, he is a non-smoker. While in the Rehab Unit (RU) his other medical conditions were monitored. While in the RU he improved with therapy and gained strength. He is scheduled to be discharged home with Home Health on Sunday06/15/2018 with Home health. Summary of Care: Physical therapy for gait and balance Occupational Therapy for ADLs Speech therapy for dysarthria Mechanical aortic valve: Continue Coumadin keep INR 2.5-3.5 Allow blood pressure to remain high for now until 06/11/18 at which point aggressively treat his blood pressure unless it goes over 200 systolic => may aggressively treat BP Maintain < 130/80 Continue anti-glycemic agents Continue statin therapy Plan is for discharge on Sunday home with Home berenice to include Physical therapy and Occupational therapy MOD I today in preparation for discharge Summary of Therapy Sessions: With Physical therapy, he is able to walk 225 feet with a wheel walker, he is MOD I for bed mobility, getting in and out of the bed. He has gone up 2 steps at stand by assist. He did the TUG test in 19.5 seconds, his sit to stand test he was able to do 6 stands in 30 seconds. With Occupational therapy, he is stand by assist to get his clothing on and is able to do toileting at a distance. He is stand by assist for getting into the shower. With Speech therapy, eating he is doing well regular texture diet with thin liquids. They have been working on voice and speech improvement, they have started cognitive assessment as well. With nursing, his blood sugar is stable his INR is 2.8, he has been sleeping well. The plan is for discharge on Sunday with Home Health, Physical therapy and Occupational therapy. He will be made MOD I today in preparation for discharge. Meaningful Use Info Meaningful Use Diagnoses (Choose all that apply): Ischemic CVA - CVA Therapy Assessed for PT,OT and/or ST?: Yes - Ischemic Stroke Antithrombotic order at d/c?: Yes Dx of Atrial fib/flutter?: No Anticoagulant at discharge?: Yes Statins at discharge?: Yes Primary Dx Acute Ischemic CVA?: Yes IV tPA ordered during stay?: No Reason IV t-PA not ordered: Medical Contraindication - he was on Coumadin at time of encounter and levels were therapeutic
[2018-06-14 12:21] LABS: Bedside Glucose 76 mg/dL (70-110)
[2018-06-14 15:01] VITALS: BP 141/73; PULSE 55; RESP 16; TEMP 36.9; O2SAT 94
--- NOTE | 2018-06-14 15:02 | DCINST_ITS ---
You will use the following diet at home:: Calorie/Carbohydrate Controlled (specify 1200, 1400, etc) Your food should be the consistency of: Regular Your liquids should be the consistency of: Regular/Thin Discharge Activity: May Not Drive, May Shower, May Take a Tub Bath, Use Walker Weight Bearing Status: Weight bearing as tolerated Call your doctor if you observe: Fever of 101 or Higher, Coldness, Increased Pain, Numbness or Tingling, Change in Color, Inability to urinate, Inability to have a bowel movement, Using more than one pad per hour, Shortness of breath, Dizziness, Fainting spells, Swelling in the ankles, Chest pain, Prolonged hiccoughing, Increased palpitations (irregular heartbeat), Calf discomfort, Uncontrolled pain Allergies/Adverse Reactions: Allergies No Known Allergies Allergy (Verified 06/05/18 12:15) Medications to take at Discharge Allopurinol [Zyloprim] 100 mg PO DAILYCM 05/27/15 Glimepiride [Amaryl] 2 mg PO DAILY 05/27/15 Multivitamins,Therapeutic [Multivitamin] 1 tablet PO DAILY 05/27/15 Acetaminophen [Tylenol Tablet] 650 mg PO Q8H PRN tablet 06/13/18 Amlodipine [Norvasc] 10 mg PO DAILY #30 tablet 06/13/18 Atenolol [Tenormin] 50 mg PO QHS #30 tablet 06/13/18 Atorvastatin Calcium [Lipitor] 80 mg PO QHS #30 tablet 06/13/18 Tamsulosin HCl [Flomax] 0.4 mg PO DAILY #30 capsule 06/13/18 Warfarin Sodium 3 mg PO MILLIGAN #30 tablet 06/13/18 Warfarin Sodium 6 mg PO MOTUWETHFRSA #180 tablet 06/13/18 The following prescriptions were given: Amlodipine [Norvasc] 10 mg PO DAILY #30 tablet Atenolol [Tenormin] 50 mg PO QHS #30 tablet Atorvastatin Calcium [Lipitor] 80 mg PO QHS #30 tablet Tamsulosin HCl [Flomax] 0.4 mg PO DAILY #30 capsule Warfarin Sodium 6 mg PO MOTUWETHFRSA #180 tablet Warfarin Sodium 3 mg PO MILLIGAN #30 tablet Primary Care Physician: Andres Arce DO [Primary Care Provider] - Test Results: Test results from this visit will be discussed in further detail at your follow- up appointment, if applicable. Please Follow Up With: Andres Arce, DO Please Follow Up With: [facility] When: August 09, 2018 @ 1PM Proposed Discharge Date: 06/15/18
[2018-06-14 15:27] VITALS: BMI 30.5
--- NOTE | 2018-06-14 16:36 | PCM.PN.HOSP ---
Subjective: Patient seen and examined. He has no complaints and feels well. He is due for discharge tomorrow. Labs and vitals reviewed. Vitals/I&O's: Vital Signs Temp Pulse Resp BP Pulse Ox 98 F 63 16 148/81 H 97 06/14/18 09:42 06/14/18 09:42 06/14/18 09:42 06/14/18 09:42 06/14/18 09:42 Oxygen Delivery Method Room Air Weight: 223 lb 8.78 oz Body Mass Index (BMI) 30.5 Finger Stick Blood Glucose 119 Intake and Output for Last 24 Hours 06/12/18 06/13/18 06/14/18 23:59 23:59 23:59 Intake Total 240 / 240 Balance 240 / 240 General: Alert, Oriented x3, Cooperative HEENT: Atraumatic, PERRLA, EOMI, Normocephalic Oral: Moist Mucosa Neck: Supple, No JVD, Negative Carotid Bruits Lungs: Clear to auscultation, Normal air movement, No rhonchi, No wheeze, No rales Cardiovascular: Regular rate, Regular Rhythm, Normal S1, Normal S2, No murmurs, mechanical aortic valve click Abdomen: Bowel Sounds Present, Soft, Non Tender, Non-Distended, No Hepato-splenomegaly Extremities: No clubbing, No cyanosis, No edema, Capillary Refill Less than 3 Seconds Skin: No rashes, No breakdown Musculoskeletal: No Tenderness to Palpation of Joints or Extremities Lymphatic: No Cervical, Supraclavicular, or Inguinal Adenopathy Neurological: Cranial nerves II-XII grossly intact, Neuro grossly intact, Motor Exam 5/5 strength throughout Psych/Mental Status: Normal Affect, Appropriate, Alert and oriented to time, place, person, mood and affect Laboratory Results 06/13/18 16:41: POC Glucose 111 H 06/13/18 20:52: POC Glucose 139 H 06/13/18 21:21: POC Glucose 124 H 06/14/18 06:28: PT 32.5 H, INR 3.1 06/14/18 07:42: POC Glucose 118 H 06/14/18 11:59: POC Glucose 76 Current Medications Acetaminophen (Tylenol) 650 mg PO Q8H PRN PRN Reason: Mild Pain (0-3/10)/Headache Al Hydroxide/Mg Hydroxide (Mylanta Ii) 10 ml PO 4X/DAY PRN PRN PRN Reason: INDIGESTION Albuterol Sulfate (Ventolin Aerosols) 2.5 mg INHALATION Q6H.RT PRN PRN Reason: WHEEZING OR COUGH [facility]) [facility] Last Admin: 06/14/18 09:48 Dose: 100 mg Amlodipine Besylate (Norvasc) 10 mg PO DAILY [facility] Last Admin: 06/14/18 09:48 Dose: 10 mg Atenolol ([facility] (Beta Britt)) [facility] Last Admin: 06/13/18 20:53 Dose: 50 mg Atorvastatin Calcium (Lipitor) 80 mg PO QHS [facility] Last Admin: 06/13/18 20:53 Dose: 80 mg Bisacodyl (Dulcolax) 10 mg RECTAL .PRN X 1 PRN PRN Reason: Constipation Glimepiride (Amaryl) [facility] Last Admin: 06/14/18 09:48 Dose: 2 mg Insulin Human Lispro (Humalog Kwikpen (Bkc)) 0 unit SC [facility]; Protocol Last Admin: 06/14/18 12:16 Dose: Not Given Magnesium Hydroxide (Milk Of Magnesia) 30 ml PO .PRN X 1 PRN PRN Reason: Constipation Multivitamins (Multivitamin) [facility] Last Admin: 06/14/18 09:48 Dose: 1 tablet Nystatin (Mycostatin Powder) 1 applic TOPICAL BID [facility]; Protocol Last Admin: 06/14/18 09:48 Dose: 1 applicatio Senna/Docusate Sodium (Senokot-S, Madelin-Colace) 2 tablet PO BID [facility] Last Admin: 06/14/18 09:40 Dose: Not Given Tamsulosin HCl (Flomax) 0.4 mg PO DAILY@0830 [facility] Last Admin: 06/14/18 09:48 Dose: 0.4 mg Warfarin Sodium (Coumadin (Pbkc)) 3 mg PO Alas@1700 [facility] Last Admin: 06/09/18 17:07 Dose: 3 mg Warfarin Sodium (Coumadin (Pbkc)) 6 mg PO MoTuWeThFrSa@1700 [facility] Last Admin: 06/14/18 15:49 Dose: Not Given Medical Necessity - Tobacco Use Smoking Status: Former smoker Tobacco Use: Cigarettes Assessment/Plan 1. 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 INR todas is 2.3 on statin. neurology on board 3. Hypertension: on norvasc and atenolol 4. Aortic valvulopathy s/p replacement on coumadin. INR today is 3.1. Will hold coumadin for today and check INR tomorrow 5. Gout: on allopurinol 6. DM2: on ISS and glimepiride. Accuchecks ACHS. DVT prophylaxis: on coumadin Code Visit Inpatient E&M: 37684 Subs Hosp L2
[2018-06-14 18:11] LABS: Bedside Glucose 126 mg/dL (70-110)
[2018-06-14] MEDS: Atorvastatin Calcium 80 MG Tablet PO (21:15)
[2018-06-14] MEDS: Atenolol 50 MG Tablet PO (21:16)
[2018-06-14 21:18] VITALS: BP 165/82; PULSE 65; RESP 18; TEMP 36.8; O2SAT 95
[2018-06-14 23:31] LABS: Bedside Glucose 108 mg/dL (70-110)
[2018-06-15 00:30] VITALS: BMI 30.5
[2018-06-15 07:10] LABS: Bedside Glucose 97 mg/dL (70-110)
[2018-06-15 07:54] LABS: International Normalized Ratio 3.1; Prothrombin Time (Protime)PT. 31.9 SECONDS (11.7-14.9)
[2018-06-15 08:05] VITALS: BP 141/73; PULSE 55; RESP 16; TEMP 36.9; O2SAT 94
[2018-06-15] MEDS: Tamsulosin HCl 0.4 MG Capsule PO (08:07)
[2018-06-15] MEDS: amLODIPine 10 MG Tablet PO (08:07)
[2018-06-15] MEDS: Glimepiride 2 MG Tablet PO (08:07)
[2018-06-15] MEDS: Multivitamins,Therapeutic Tablet 1 TABLET PO (08:07)
[2018-06-15] MEDS: Nystatin Powder 15gm Bottle 1 APPLIC TOPICAL (08:07)
[2018-06-15] MEDS: Allopurinol 100 MG Tablet PO (08:07)
--- NOTE | 2018-06-15 11:41 | NURSING ---
Pt. discharged home this RN went over DC instructions, medications and appts. with pt and son/daughter in law. This RN answered all questions, all three verbalized understanding of dc instructions. Pt taken to vehicle by wheelchair with all personal belongings.
== END 2018-06-15 11:44 | disposition home health service (06) | DRG 57 ==
PROVIDERS: Psychiatry & Neurology Neurology; Admitting Provider Psychiatry & Neurology Neurology; Family Provider Preventive Medicine Occupational Medicine; PCP Preventive Medicine Occupational Medicine; Referring Provider Psychiatry & Neurology Neurology; Visit Provider Student in an Organized Health Care Education/Training Program
DX: I69.322 Dysarthria following cerebral infarction (principal); Z87.891 Personal history of nicotine dependence; Z95.2 Presence of prosthetic heart valve; M10.9 Gout, unspecified; E11.9 Type 2 diabetes mellitus without complications; Z79.01 Long term (current) use of anticoagulants
CPT/HCPCS: 36415; 80048; 82962; 83036; 83735; 84100; 85025; 85610; 92507; 92523; 92526; 97110; 97112; 97116; 97163; 97166; 97530; 97535

== ENCOUNTER 2020-07-05 15:37 | Inpatient (IN) | payer MEDICARE, SELFPAY ==
[2020-07-05] VITALS (12 sets, daily range): BP systolic 134–169; BP diastolic 71–85; PULSE 70–121; RESP 14–34; TEMP 36.4–37; O2SAT 84–100; BMI 28.4; BMI 27.1
--- NOTE | 2020-07-05 16:01 | EKG12_ITS ---
Test Reason : SOB Blood Pressure : / mmHG Vent. Rate : 092 BPM Atrial Rate : 093 BPM P-R Int : 000 ms QRS Dur : 096 ms QT Int : 382 ms P-R-T Axes : 000 005 088 degrees QTc Int : 472 ms Sinus vs Ectopic Atrial Rhythm with 1st degree AV block Abnormal ECG Confirmed by BEVERLY GOLDSTEIN, CRISTHIAN ([id number]), manager editorial LINDSEY BENNETT ([id number]) on 07/07/2020 11:14:00 AM Referred By: LORRIE Confirmed By:CRISTHIAN PAUL MD
--- NOTE | 2020-07-05 16:03 | ED.VIS.GEN ---
History of Present Illness Chief Complaint: Shortness of Breath Narrative: This patient is an 80-year-old male who presents with acute onset severe shortness of breath. This began about 4 hours before presentation. He denies any pain. He has had a mild productive cough. No fever congestion nausea vomiting or diarrhea. He denies history of congestive heart failure, no edema. Past Medical History - Allergies and Home Meds Allergies/Adverse Reactions: Allergies No Known Allergies Allergy (Verified 06/05/18 12:15) Primary Care Physician: Andres Arce DO [Primary Care Provider] - Past Medical History: - - Diabetes, hypertension, aortic valve replacement, stroke Surgical History: - - Aortic valve replacement in approximately 1994 Smoking Status: Never smoker - Family History Paternal Family History: Reports: COPD Maternal Family History: Reports: Diabetes Review of Systems All systems negative except as indicated General: Denies: Fever Eyes: Denies: Visual changes - bilaterally ENT: Denies: Bilateral ear pain Cardiovascular: Denies: Chest pain Respiratory: Reports: Dyspnea, Cough, Sputum Gastrointestinal: Denies: Abdominal pain, Nausea, Vomiting Musculoskeletal: Denies: Myalgias, Arthralgias, Swelling, Extremity Pain Skin: Denies: Rash Hematologic: Reports: Easy bruising, Easy bleeding Allergy: Denies: Uticaria Physical Exam Vital Signs/Narrative: Vital Signs Temp Pulse Resp BP Pulse Ox 07/05/20 15:41 97.6 F L 121 H 34 H 134/85 H 84 07/05/20 15:39 97.6 F L 121 H 34 H 134/85 H 84 Inital Vital Signs reviewed: Yes General: Well nourished, Well developed Head: Normocephalic Eyes: EOMI ENT: Moist mucous membranes Cardiovascular: Regular rhythm, Tachycardia Respiratory: - - Diminished air exchange, diminished breath sounds at the bases, no rales or wheezing Abdomen: Soft, Nontender Extremities: Nontender, No edema Skin: Normal color Neurological: Alert Psychological: Normal affect Diagnostic/Tx/Re-eval Impressions Chest X-Ray 07/05/20 16:10 IMPRESSION: Suspect right hilar mass with right upper lobe atelectasis. Correlation with CT the chest with contrast is recommended. Electronically Signed: Aki Norwood MD at 16:24 EST Tel , Service support , ADDENDUM: 07/05/20 1637 IMPRESSION: Suspect right hilar mass with right upper lobe atelectasis. Correlation with CT the chest with contrast is recommended. N.B. : The above information has been verbally conveyed by Aki Norwood MD to Kris Ellis MD, on 07/05/2020 16:30:15 (ET). Electronically Signed: Aki Norwood MD at 16:24 EST Tel , Service support , Chest CTA 07/05/20 16:40 IMPRESSION: CTA chest examination, without a demonstrated pulmonary embolism or arterial dissection. Mild lower lung interstitial edema or infiltrates. No dominant mass or adenopathy. Abnormality on x-ray likely represented summation of structures including tortuous and ectatic mediastinal vascularity and overlapping osseous structures. Electronically Signed: Rom Norman MD at 18:58 EST , Service support , 07/05/20 16:10 Chest 1 View (Portable) [RAD] Stat 07/05/20 16:40 CTA Chest W/WO Contrast [CT] Stat 07/05/20 16:15 Mucosa - Nose SARS-CoV-2 Antigen (Rapid) - Final Laboratory Results 07/05/20 07/05/20 07/05/20 15:35 15:35 15:35 WBC 11.7 H RBC 4.66 Hgb 14.7 Hct 46.6 MCV 100.0 H MCH 31.5 MCHC 31.5 L RDW Std Deviation 50.6 H RDW Coeff of Gilbert 13.9 Plt Count 281 MPV 10.7 Immature Gran % (Auto) 0.300 Neut % (Auto) 51.6 Lymph % (Auto) 38.9 [place] % (Auto) 6.3 Eos % (Auto) 2.4 Baso % (Auto) 0.5 Absolute Neuts (auto) 6.0 Absolute Lymphs (auto) 4.54 H Nucleated RBC % 0 PT 24.8 H INR 2.3 Specimen Type Sample Site pH Bicarbonate Actual Total CO2 Base Excess O2 Saturation O2 % ABG pCO2 ABG pO2 O2 Delivery Device Sodium 145 Potassium 4.1 Chloride 111 H Carbon Dioxide 26.0 Anion Gap 8 BUN 28 H Creatinine 1.32 H Estim Creat Clear Calc 48.17 Est GFR (MDRD) Af Amer 67 Est GFR (MDRD) Non-Af 55 L BUN/Creatinine Ratio 21.2 H Glucose 166 H Lactic Acid Calcium 8.8 Total Bilirubin 0.40 AST 27 ALT 32 Alkaline Phosphatase 110 Troponin I < 0.015 Total Protein 7.7 Albumin 3.5 Globulin 4.2 Albumin/Globulin Ratio 0.8 L 07/05/20 07/05/20 15:35 17:00 WBC RBC Hgb Hct MCV MCH MCHC RDW Std Deviation RDW Coeff of Gilbert Plt Count MPV Immature Gran % (Auto) Neut % (Auto) Lymph % (Auto) [place] % (Auto) Eos % (Auto) Baso % (Auto) Absolute Neuts (auto) Absolute Lymphs (auto) Nucleated RBC % PT INR Specimen Type ART Sample Site R Brach pH 7.26 L Bicarbonate Actual 24.9 Total CO2 27 Base Excess -2 O2 Saturation 95 O2 % 32 ABG pCO2 55.6 H ABG pO2 87 O2 Delivery Device Cannula Sodium Potassium Chloride Carbon Dioxide Anion Gap BUN Creatinine Estim Creat Clear Calc Est GFR (MDRD) Af Amer Est GFR (MDRD) Non-Af BUN/Creatinine Ratio Glucose Lactic Acid 2.8 H* Calcium Total Bilirubin AST ALT Alkaline Phosphatase Troponin I Total Protein Albumin Globulin Albumin/Globulin Ratio - Medical Decision Making EKG shows accelerated junctional rhythm at a rate of 92. ABG shows pH 7.26, PCO2 of 55.6. Chest x-ray showed possible right hilar mass with right upper lobe atelectasis. I was called by radiology. They recommended a CT of the chest. Given the patient's sudden onset of shortness of breath and consideration to Covid I was concerned for possible pulmonary embolism so we obtained this is a CT angiogram of the chest. No pulmonary embolism. No hilar mass. It was thought chest x-ray findings were attributable to a summation of structures and overlying osseous structures. There is mild lower lung interstitial edema versus infiltrates. Given hypoxia I did cover for possible community-acquired pneumonia with Rocephin and vancomycin. Covid antigen returned negative. Given that this does have a relatively high false-negative rate we were still concerned and sent Covid PCR. Gas 2.8 and patient was given IV fluids. Troponin is negative. Hospitalist does agree to admit we are just awaiting Covid PCR to determine which unit she he will be admitted to. ED Disposition - Plan for ED Patient: Disposition: Acute Care Hospital [facility] Diagnosis: Pneumonia, Hypoxia Referrals: Andres Arce DO [Primary Care Provider] -
--- NOTE | 2020-07-05 16:10 | RAD_ITS ---
STUDY: X-RAY CHEST REASON FOR EXAM: Male, 80 years old. shortness of breath TECHNIQUE: Single AP portable view of the chest. COMPARISON: 06/05/2018 FINDINGS: Status post median sternotomy. Opacity in the medial aspect of the right upper lobe worrisome for right hilar mass with right upper lobe atelectasis (:Dillon S sign) . Correlation with CT the chest with contrast is recommended. There is no demonstrated pleural abnormality. Normal size heart. Normal mediastinum and neelam. Normal visualized pulmonary arteries. Normal visualized aortic arch and descending thoracic aorta. Normal visualized thoracic spine. Normal visualized ribs, clavicles, and shoulders. There is no demonstrated abnormality of the visualized soft tissue structures of the upper abdomen. RAD/Chest 1 View (Portable) IMPRESSION: Suspect right hilar mass with right upper lobe atelectasis. Correlation with CT the chest with contrast is recommended. Electronically Signed: Aki Norwood MD at 16:24 EST Tel , Service support ,
[2020-07-05 16:26] LABS: Absolute Lymphocyte Count 4.54 X10^3/uL (0.83-4.51); Basophil# 0.06 X10^3/uL; Basophil% 0.5 % (0-1); Eosinophil# 0.28 X10^3/uL; Eosinophils% 2.4 % (0-5); Hematocrit 46.6 % (40-54); Hemoglobin 14.7 g/dL (13.0-16.5); Lymphocyte # 4.54 X10^3/ul (4.0); Lymphocyte % 38.9 % (19-41); Mean Corp Hgb Conc 31.5 g/dL (32-36); Mean Corpuscular Hgb 31.5 pg (27.0-32.0); Mean Platelet Vol. 10.7 fl (6.2-12.0); Monocyte# 0.74 X10^3/uL; Monocyte% 6.3 % (0-10); NRBC Flagged by Analyzer 0 % (0-5); Neutrophil # 6.01 X10^3/uL (2.7-7.7); Neutrophil % 51.6 % (47-70); Platelet Count 281 K/mm3 (150-450); RBC Distribution Width CV 13.9 % (11.6-14.6); RBC Distribution Width SD 50.6 fl (35.1-43.9); Red Blood Count 4.66 M/mm3 (4.6-6.2); White Blood Count 11.7 K/mm3 (4.4-11.0)
[2020-07-05 16:33] LABS: ALB/GLOB Ratio 0.8 RATIO (0.9-2.4); AST(SGOT) 27 U/L (15-37); Alanine Aminotransfer ALT/SGPT 32 U/L (16-61); Albumin, Serum 3.5 g/dL (3.2-5.0); Alkaline Phosphatase 110 U/L (45-117); Anion Gap 8 (5-15); BUN 28 mg/dL (7-18); BUN/Creat Ratio 21.2 RATIO (10-20); Calcium,Total 8.8 mg/dL (8.5-10.1); Chloride 111 mmol/L (98-107); Creatinine, Serum 1.32 mg/dL (0.70-1.30); EST Glomerular Filtration Rate 55 mL/min (>60); Est Glom Filt Rate - Afr Amer 67 mL/min (>60); Estimated Creatinine Clearance 48.17 ml/min; Globulin 4.2 g/dL (2.2-4.2); Glucose 166 mg/dL (74-106); Potassium 4.1 mmol/L (3.5-5.1); Protein, Total 7.7 g/dL (6.4-8.2); Sodium Level 145 mmol/L (136-145)
[2020-07-05] MEDS: Ipratropium/Albuterol Sulfate 3 ML AMPUL.NEB INHALATION (16:34)
--- NOTE | 2020-07-05 16:40 | CT_ITS ---
STUDY: CTA CHEST REASON FOR EXAM: Male, 80 years old. HILAR MASS SEEN ON CXR TODAY, SUDDEN ONSET OF SOB,HX-DB,HTN, CVA RADIATION DOSAGE (If Supplied By Facility): CTDIvol = ( 12.05 ) mGy, DLP = ( 497.75 ) mGycm TECHNIQUE: The examination was performed with the intravenous administration of 100mL Isovue-370. Post-processing of the angiographic images was performed, with multiplanar reformation and 3D reconstruction. Individualized dose optimization techniques were used for this CT. COMPARISON: X-ray FINDINGS: Normal enhancement of the main pulmonary artery and right and left pulmonary arteries. Normal enhancement of the bilateral peripheral pulmonary arteries. There is no demonstrated pulmonary embolism. There is atherosclerotic calcification of the aortic arch with tortuosity. 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 The transverse diameter of the ascending aorta measures 41 mm''s. There is no demonstrated aortic dissection. Sternal cerclage wires are present from a prior sternotomy. There are mitral annular calcifications Normal mediastinum. Normal hilar regions. Normal visualized trachea and bronchi. The lungs are well expanded. There are mild lower lung interstitial increased opacities. Normal pleura. Normal chest wall structures. There are degenerative changes of thoracic spine. Normal visualized upper abdomen. CT/CTA Chest W/WO Contrast IMPRESSION: CTA chest examination, without a demonstrated pulmonary embolism or arterial dissection. Mild lower lung interstitial edema or infiltrates. No dominant mass or adenopathy. Abnormality on x-ray likely represented summation of structures including tortuous and ectatic mediastinal vascularity and overlapping osseous structures. Electronically Signed: Rom Norman MD at 18:58 EST , Service support ,
[2020-07-05 16:44] LABS: International Normalized Ratio 2.3; Prothrombin Time (Protime)PT. 24.8 SECONDS (11.7-14.9)
--- NOTE | 2020-07-05 17:09 | ED.RN ---
retail pharmacy manager notified to complete med list.
[2020-07-05 17:10] LABS: Base Excess -2 mmol/L (-2 to +2); Bicarbonate 24.9 mmol/L (22-26); Blood Gas Specimen Type ART; FI02 32; O2 Delivery Device Cannula; PO2 87 mmHG (75-100); SITE R Brach; SO2 95 % (95-99); Total Carbon Dioxide 27 mmol/L; pCO2 55.6 mmHg (35-45); pH 7.26 (7.35-7.45)
[2020-07-05] MEDS: Ceftriaxone 1 GM/50 ML BAG IV (19:50)
[2020-07-05 19:51] LABS: Lactic Acid 2.8 mmol/L (0.4-1.9)
[2020-07-05] MEDS: 0.9% Normal Saline 1,000 ML 999 ML IV (20:06)
[2020-07-05 21:25] LABS: Bedside Glucose 129 mg/dL (70-110)
--- NOTE | 2020-07-05 22:14 | ED.RN ---
PT DIMAS CHUNG INFORMED OF ADMISSION.
--- NOTE | 2020-07-05 22:19 | HP.PCM_ITS ---
Problem List (1) Pneumonia Status: Acute Qualifiers: Laterality: bilateral Lung location: lower lobe of lung (2) Hypoxia Status: Acute (3) History of GI bleed Status: Resolved (4) Chronic anticoagulation Status: Chronic (5) HTN (hypertension) Status: Chronic (6) History of aortic valve replacement Status: Chronic (7) Diabetes mellitus, type 2 Status: Chronic (8) Gout Status: Resolved History of Present Illness Date of Admission: 07/05/20 Chief Complaint: shortness of breath The patient is a 80 year old male patient with a significant past medical history of diabetes, status post aortic valve replacement on anticoagulation presents emergency room with shortness of breath. Onset of symptoms began 1 week ago with cough and has been progressing ever since that time. Today he felt a substantial amount of mucus in his upper airway and and that he could not clear it. Since his arrival in the emergency room he has tested both by Covid antigen test and PCR test and was negative for both. He states he is feeling better after receiving oxygen therapy and IV therapy including antibiotics for pneumonia diagnosed on CT scan. White count is modestly elevated as well as increased lactic acid. Currently resting comfortably with will be admitted to general medical floor for treatment of community-acquired pneumonia Past Medical History Past Medical History (Chronic Problems): Chronic Problems Chronic anticoagulation (Chronic) HTN (hypertension) (Chronic) History of aortic valve replacement (Chronic) Diabetes mellitus, type 2 (Chronic) Allergies No Known Allergies Allergy (Verified 06/05/18 12:15) Home Medications: Ambulatory Orders Medication Instructions Recorded Allopurinol [Zyloprim] 100 mg PO DAILYCM 05/27/15 Glimepiride [Amaryl] 2 mg PO DAILY 05/27/15 Multivitamins,Therapeutic 1 tablet PO DAILY 05/27/15 [Multivitamin] Atenolol [Tenormin] 50 mg PO QHS #30 tablet 06/13/18 Tamsulosin HCl [Flomax] 0.4 mg PO DAILY #30 capsule 06/13/18 Amlodipine [Norvasc] 10 mg PO DAILY 07/05/20 Warfarin Sodium 3 mg PO MOWEFR 07/05/20 Warfarin Sodium 6 mg PO SUTUTHSA 07/05/20 Surgical History: - - Aortic valve replacement in approximately 1994 Psychiatric History: No pertinent psych hx Smoking Status: Never smoker - *Family History Paternal History Items: COPD Maternal History Items: Diabetes Review of Systems Constitutional: Reports: Weakness. Denies: Chills, Fever, Weight Change HEENT: Denies: Head Aches, Sinus Congestion, Sinus Drainage Cardiovascular: Denies: Chest Pain, Palpitations Respiratory: Reports: Cough, Shortness of breath at rest. Denies: Sputum production Gastrointestinal: Denies: Abdominal Pain, Nausea, Vomiting Genitourinary: Denies: Dysuria Musculoskeletal: Denies: Joint Pain, Joint Tenderness Skin: Denies: Rash, Wounds Neurological: Denies: Numbness, Tingling, Focal weakness Psychiatric: Denies: Anxiety, Depression, Homicidal Ideations, Suicidal Ideations Hematologic/ Lymphatic: Denies: Easy Bruising, Easy Bleeding VTE Information - Inpt Only VTE Present on Admission: No VTE Mechan Device Prophylaxis: None VTE Pharm Prophylaxis ordered?: No Patient Problems: Active and Suspected Problems Pneumonia (Acute) Hypoxia (Acute) - Physical Exam Vitals/I&O's: Vital Signs Temp Pulse Resp BP Pulse Ox 98.4 F 73 17 145/75 H 100 07/05/20 22:13 07/05/20 22:13 07/05/20 22:13 07/05/20 22:13 07/05/20 22:13 Oxygen Flow Rate (L/min) 2 Oxygen Delivery Method Nasal Cannula Weight: 209 lb 14.081 oz Body Mass Index (BMI) 28.4 Finger Stick Blood Glucose 119 Intake and Output for Last 24 Hours 07/03/20 07/04/20 07/05/20 23:59 23:59 23:59 Intake Total 1305 / 1305 Balance 1305 / 1305 General: Alert, Oriented x3, Cooperative HEENT: Atraumatic, Normocephalic Neck: Supple Lungs: Clear to auscultation, No rhonchi, No wheeze, No rales, Diminished Cardiovascular: Regular rate, Normal S1, Normal S2, No murmurs Abdomen: Bowel Sounds Present Extremities: No edema Skin: No rashes Musculoskeletal: No Tenderness to Palpation of Joints or Extremities Neurological: Neuro grossly intact Psych/Mental Status: Normal Affect, Appropriate Microbiology Past 72 Hours 07/05/20 16:15 Mucosa - Nose SARS-CoV-2 Antigen (Rapid) - Final Laboratory Results 07/05/20 15:35: WBC 11.7 H, RBC 4.66, Hgb 14.7, Hct 46.6, MCV 100.0 H, MCH 31.5, MCHC 31.5 L, RDW Std Deviation 50.6 H, RDW Coeff of Gilbert 13.9, Plt Count 281, MPV 10.7, Immature Gran % (Auto) 0.300, Neut % (Auto) 51.6, Lymph % (Auto) 38.9, [place] % (Auto) 6.3, Eos % (Auto) 2.4, Baso % (Auto) 0.5, Absolute Neuts (auto) 6.0, Absolute Lymphs (auto) 4.54 H, Nucleated RBC % 0 07/05/20 15:35: PT 24.8 H, INR 2.3 07/05/20 15:35: Sodium 145, Potassium 4.1, Chloride 111 H, Carbon Dioxide 26.0, Anion Gap 8, BUN 28 H, Creatinine 1.32 H, Estim Creat Clear Calc 48.17, Est GFR (MDRD) Af Amer 67, Est GFR (MDRD) Non-Af 55 L, BUN/Creatinine Ratio 21.2 H, Glucose 166 H, Calcium 8.8, Total Bilirubin 0.40, AST 27, ALT 32, Alkaline Phosphatase 110, Troponin I < 0.015, Total Protein 7.7, Albumin 3.5, Globulin 4.2, Albumin/Globulin Ratio 0.8 L 07/05/20 15:35: Lactic Acid 2.8 H* 07/05/20 17:00: Specimen Type ART, Sample Site R Brach, pH 7.26 L, Bicarbonate Actual 24.9, Total CO2 27, Base Excess -2, O2 Saturation 95, O2 % 32, ABG pCO2 55.6 H, ABG pO2 87, O2 Delivery Device Cannula 07/05/20 19:40: COVID-19 (NATALYA) Not Detected 07/05/20 21:20: POC Glucose 129 H Assessment/Plan All Active Problems Pneumonia (Acute) Hypoxia (Acute) History of GI bleed (Resolved) Gout (Resolved) Chronic Problems Chronic anticoagulation (Chronic) HTN (hypertension) (Chronic) History of aortic valve replacement (Chronic) Diabetes mellitus, type 2 (Chronic) Plan 1. Community-acquired pneumonia?admit patient to general medical floor, continue IV Rocephin and IV azithromycin, DuoNeb INH every 4 hours as needed, oxygen per routine protocol. Repeat CBC, BMP in the morning and lactic acid per protocol and will hydrate patient with IV fluids gently overnight. 2. Hypertension?continue home medications 3. History of aortic valve replacement?continue anticoagulation 4. Diabetes?continue home medications 5. DVT prophylaxis patient is already anticoagulated Inpatient E&M: [id number] Init Hosp L3
[2020-07-05] MEDS: 0.9% Normal Saline 1,000 ML 100 ML IV (23:16)
[2020-07-05] MEDS: 0.9% Saline Lock 10 ML Syringe IV (23:16)
[2020-07-05 23:17] LABS: Reflex Lactate? Y
[2020-07-05] MEDS: Atenolol 50 MG Tablet PO (23:36)
[2020-07-06] VITALS (14 sets, daily range): BP systolic 137–157; BP diastolic 56–78; PULSE 66–82; RESP 16–24; TEMP 36.7–37.2; O2SAT 92–97
[2020-07-06 00:10] LABS: Lactic Acid 2.5 mmol/L (0.4-1.9)
--- NOTE | 2020-07-06 02:16 | PCS.PANDOC ---
PANDEMIC DOCUMENTATION INITIATED: Date: 07/05/20 Time: 1588
[2020-07-06 03:47] LABS: Absolute Lymphocyte Count 2.51 X10^3/uL (0.83-4.51); Absolute Neutrophil Count 12.5 X10^3/uL (2.0-7.7); Basophil# 0.03 X10^3/uL; Basophil% 0.2 % (0-1); Eosinophil# 0.02 X10^3/uL; Eosinophils% 0.1 % (0-5); Hematocrit 38.9 % (40-54); Hemoglobin 12.5 g/dL (13.0-16.5); Lymphocyte # 2.51 X10^3/ul (4.0); Lymphocyte % 15.4 % (19-41); Mean Corp Hgb Conc 32.1 g/dL (32-36); Mean Corpuscular Hgb 31.4 pg (27.0-32.0); Mean Corpuscular Volume 97.7 fL (80-94); Mean Platelet Vol. 10.1 fl (6.2-12.0); Monocyte# 1.16 X10^3/uL; Monocyte% 7.1 % (0-10); NRBC Flagged by Analyzer 0 % (0-5); Neutrophil # 12.49 X10^3/uL (2.7-7.7); Neutrophil % 76.7 % (47-70); Platelet Count 232 K/mm3 (150-450); RBC Distribution Width CV 13.8 % (11.6-14.6); RBC Distribution Width SD 50.1 fl (35.1-43.9); Red Blood Count 3.98 M/mm3 (4.6-6.2); White Blood Count 16.3 K/mm3 (4.4-11.0)
[2020-07-06 03:57] LABS: International Normalized Ratio 2.7; Prothrombin Time (Protime)PT. 28.4 SECONDS (11.7-14.9)
[2020-07-06 04:28] LABS: Lactic Acid 2.2 mmol/L (0.4-1.9)
[2020-07-06 05:05] LABS: Anion Gap 6 (5-15); BUN 23 mg/dL (7-18); BUN/Creat Ratio 21.3 RATIO (10-20); Chloride 113 mmol/L (98-107); Creatinine, Serum 1.08 mg/dL (0.70-1.30); EST Glomerular Filtration Rate 70 mL/min (>60); Est Glom Filt Rate - Afr Amer 84 mL/min (>60); Estimated Creatinine Clearance 58.88 ml/min; Glucose 113 mg/dL (74-106); Potassium 4.6 mmol/L (3.5-5.1); Sodium Level 143 mmol/L (136-145)
[2020-07-06] MEDS: 0.9% Normal Saline 1,000 ML 125 ML IV ×3 (05:46→22:03)
[2020-07-06] MEDS: Nystatin Powder 15gm Bottle 1 APPLIC TOPICAL ×2 (05:46→21:22)
[2020-07-06] MEDS: Ipratropium/Albuterol Sulfate 3 ML AMPUL.NEB INHALATION ×3 (07:17→19:03)
[2020-07-06 07:34] LABS: Reflex Lactate? Y
[2020-07-06] MEDS: Allopurinol 100 MG Tablet PO (07:57)
[2020-07-06] MEDS: Glimepiride 2 MG Tablet PO (07:57)
[2020-07-06] MEDS: Multivitamins,Therapeutic Tablet 1 TABLET PO (07:57)
--- NOTE | 2020-07-06 08:40 | NURSING ---
coty cabrera called with update. h20 added to o2. pt denies all needs at present
[2020-07-06 08:57] LABS: Lactic Acid 3.1 mmol/L (0.4-1.9)
[2020-07-06] MEDS: Tamsulosin HCl 0.4 MG Capsule PO (09:57)
[2020-07-06] MEDS: amLODIPine 10 MG Tablet PO (09:57)
--- NOTE | 2020-07-06 11:25 | CASEMGMT ---
RN CM Face to Face with patient for initial transition planning/care coordination assessment. RN CM introduced self and role at [facility]. Patient lying in bed, alert and oriented. Patient willing to participate in assessment and is able to answer all questions appropriately. Care providers, pharmacy, and demographics verified. Patient wishes to discharge home, denies need for home health at this time. Patient states he has no further needs or concerns at this time. CM to follow for discharge planning needs that may arise. PCP: Yazmin Specialists: none Preferred Pharmacy: [facility] Insurance: [facility] Prescription Benefit: none Living Will/HPOA: yes, coty Huntley LNOK: sons Living Arrangements: Patient lives alone in a single story home with no steps to enter the home. Patient states he is independent at home. Transportation: son DME/HHC: Patient states he has shower chair, raised toilet, cane, walker, rollator, and grab bars at home. Patient states he has had [facility] HHC in the past. Disposition Plan: Patient to discharge home with family support and follow-up plans in place. Dolly RIVERA, RN, CM
--- NOTE | 2020-07-06 11:33 | PCM.PN.HOSP ---
Patient Problems: Active and Suspected Problems Pneumonia (Acute) Hypoxia (Acute) Subjective: Patient seen and examined. He was admitted with a complaint of shortness of breath associated with cough productive of mucus but he could not expectorate. Covid test done was negative. CT scan was concerning for pneumonia. WBC was also elevated as well as lactic acid. He is being managed for sepsis due to community-acquired pneumonia. He is on IV ceftriaxone and azithromycin. Patient says shortness of breath is much better this morning. He is still coughing. Was on 2 L of oxygen. Review systems otherwise negative. Vitals/I&O's: Vital Signs Temp Pulse Resp BP Pulse Ox 98.8 F 72 16 144/61 H 94 07/06/20 07:48 07/06/20 11:29 07/06/20 11:29 07/06/20 07:48 07/06/20 10:03 Oxygen Flow Rate (L/min) 2 Oxygen Delivery Method Room Air Weight: 199 lb 11.821 oz Body Mass Index (BMI) 27.1 Finger Stick Blood Glucose 119 Intake and Output for Last 24 Hours 07/04/20 07/05/20 07/06/20 23:59 23:59 23:59 Intake Total 1305 / 1305 1114.58 / 1114.58 Balance 1305 / 1305 1114.58 / 1114.58 General: Alert, Oriented x3, Cooperative, No apparent distress HEENT: Atraumatic, PERRLA, EOMI, Normocephalic Oral: Dry Mucosa Neck: Supple, No JVD, Negative Carotid Bruits Lungs: - - decreased breath sounds bibasally, no wheezes or crackles. On 2L of oxygen by nasal canula Cardiovascular: Regular rate, Regular Rhythm, Normal S1, Normal S2, No murmurs Abdomen: Bowel Sounds Present, Soft, Non Tender Extremities: No edema, Capillary Refill Less than 3 Seconds Skin: No rashes, No breakdown Musculoskeletal: No Tenderness to Palpation of Joints or Extremities Lymphatic: No Cervical, Supraclavicular, or Inguinal Adenopathy Neurological: Cranial nerves II-XII grossly intact, Neuro grossly intact, Motor Exam 5/5 strength throughout Psych/Mental Status: Normal Affect, Appropriate, Alert and oriented to time, place, person, mood and affect Microbiology Past 72 Hours 07/05/20 16:15 Mucosa - Nose SARS-CoV-2 Antigen (Rapid) - Final Laboratory Results 07/05/20 15:35: WBC 11.7 H, RBC 4.66, Hgb 14.7, Hct 46.6, MCV 100.0 H, MCH 31.5, MCHC 31.5 L, RDW Std Deviation 50.6 H, RDW Coeff of Gilbert 13.9, Plt Count 281, MPV 10.7, Immature Gran % (Auto) 0.300, Neut % (Auto) 51.6, Lymph % (Auto) 38.9, [place] % (Auto) 6.3, Eos % (Auto) 2.4, Baso % (Auto) 0.5, Absolute Neuts (auto) 6.0, Absolute Lymphs (auto) 4.54 H, Nucleated RBC % 0 07/05/20 15:35: PT 24.8 H, INR 2.3 07/05/20 15:35: Sodium 145, Potassium 4.1, Chloride 111 H, Carbon Dioxide 26.0, Anion Gap 8, BUN 28 H, Creatinine 1.32 H, Estim Creat Clear Calc 48.17, Est GFR (MDRD) Af Amer 67, Est GFR (MDRD) Non-Af 55 L, BUN/Creatinine Ratio 21.2 H, Glucose 166 H, Calcium 8.8, Total Bilirubin 0.40, AST 27, ALT 32, Alkaline Phosphatase 110, Troponin I < 0.015, Total Protein 7.7, Albumin 3.5, Globulin 4.2, Albumin/Globulin Ratio 0.8 L 07/05/20 15:35: Lactic Acid 2.8 H* 07/05/20 17:00: Specimen Type ART, Sample Site R Brach, pH 7.26 L, Bicarbonate Actual 24.9, Total CO2 27, Base Excess -2, O2 Saturation 95, O2 % 32, ABG pCO2 55.6 H, ABG pO2 87, O2 Delivery Device Cannula 07/05/20 19:40: COVID-19 (NATALYA) Not Detected 07/05/20 21:20: POC Glucose 129 H 07/05/20 23:26: Lactic Acid 2.5 H* 07/06/20 03:26: WBC 16.3 H, RBC 3.98 L, Hgb 12.5 L, Hct 38.9 L, MCV 97.7 H, MCH 31.4, MCHC 32.1, RDW Std Deviation 50.1 H, RDW Coeff of Gilbert 13.8, Plt Count 232, MPV 10.1, Immature Gran % (Auto) 0.500, Neut % (Auto) 76.7 H, Lymph % (Auto) 15.4 L, [place] % (Auto) 7.1, Eos % (Auto) 0.1, Baso % (Auto) 0.2, Absolute Neuts (auto) 12.5 H, Absolute Lymphs (auto) 2.51, Nucleated RBC % 0 07/06/20 03:26: PT 28.4 H, INR 2.7 07/06/20 03:26: Sodium 143, Potassium 4.6, Chloride 113 H, Carbon Dioxide 24.0, Anion Gap 6, BUN 23 H, Creatinine 1.08, Estim Creat Clear Calc 58.88, Est GFR (MDRD) Af Amer 84, Est GFR (MDRD) Non-Af 70, BUN/Creatinine Ratio 21.3 H, Glucose 113 H, Calcium 8.0 L 07/06/20 03:26: Lactic Acid 2.2 H* 07/06/20 08:24: Lactic Acid 3.1 H* Diagnostic Data Chest X-Ray 07/05/20 16:10 IMPRESSION: Suspect right hilar mass with right upper lobe atelectasis. Correlation with CT the chest with contrast is recommended. Electronically Signed: Aki Norwood MD at 16:24 EST Tel , Service support , ADDENDUM: 07/05/20 1637 IMPRESSION: Suspect right hilar mass with right upper lobe atelectasis. Correlation with CT the chest with contrast is recommended. N.B. : The above information has been verbally conveyed by Aki Norwood MD to Kris Ellis MD, on 07/05/2020 16:30:15 (ET). Electronically Signed: Aki Norwood MD at 16:24 EST Tel , Service support , Chest CTA 07/05/20 16:40 IMPRESSION: CTA chest examination, without a demonstrated pulmonary embolism or arterial dissection. Mild lower lung interstitial edema or infiltrates. No dominant mass or adenopathy. Abnormality on x-ray likely represented summation of structures including tortuous and ectatic mediastinal vascularity and overlapping osseous structures. Electronically Signed: Rom Norman MD at 18:58 EST , Service support , Current Medications Albuterol/Ipratropium (Ipratropium/Albuterol Sulfate 3 Ml Ampul.Neb) 3 ml INHALATION Q4H.RT [facility] Last Admin: 07/06/20 11:28 Dose: 3 ml Documented by: Allopurinol ([facility]ol 100 Mg Tablet) [facility] Last Admin: 07/06/20 07:57 Dose: 100 mg Documented by: Amlodipine Besylate (Amlodipine 10 Mg Tablet) 10 mg PO DAILY [facility] Last Admin: 07/06/20 09:57 Dose: 10 mg Documented by: Atenolol (Atenolol 50 Mg Tablet) 50 mg PO QHS [facility] Last Admin: 07/05/20 23:36 Dose: 50 mg Documented by: Glimepiride (Glimepiride 2 Mg Tablet) [facility] Last Admin: 07/06/20 07:57 Dose: 2 mg Documented by: Sodium Chloride () 1,000 mls @ 125 mls/hr IV .Q8H [facility] Last Infusion: 07/06/20 07:59 Dose: 125 mls/hr Documented by: Ceftriaxone Sodium 2 gm/ (Sodium Chloride) 50 mls @ 100 mls/hr IV Q24@2200 [facility] Azithromycin 500 mg/ Dextrose 255 mls @ 250 mls/hr IV Q24@2200 [facility] Sodium Chloride () 250 mls @ 15 mls/hr IV .[id number] PRN PRN Reason: Saline Flush Sodium Chloride () 250 mls @ 15 mls/hr IV .[id number] PRN PRN Reason: Additional IVPB Infusion Multivitamins (Multivitamins,Therapeutic Tablet) [facility] Last Admin: 07/06/20 07:57 Dose: 1 tablet Documented by: Nystatin (Nystatin Powder 15gm Bottle) 1 applic TOPICAL BID [facility]; Protocol Last Admin: 07/06/20 05:46 Dose: 1 applicatio Documented by: Sodium Chloride (0.9% Saline Lock 10 Ml Syringe) 10 - 40 ml IV UD PRN PRN Reason: SALINE FLUSH Last Admin: 07/05/20 23:16 Dose: 10 ml Documented by: Tamsulosin HCl (Tamsulosin Hcl 0.4 Mg Capsule) 0.4 mg PO DAILY [facility] Last Admin: 07/06/20 09:57 Dose: 0.4 mg Documented by: Warfarin Sodium (Warfarin 3 Mg Tablet) 3 mg PO MoWeFr@1700 [facility] Last Admin: 07/05/20 23:36 Dose: 3 mg Documented by: Warfarin Sodium (Warfarin 6 Mg Tablet) 6 mg PO SuTuThSa@1700 [facility] STROKE Vital Signs/Narrative: Vital Signs Temp Pulse Resp BP Pulse Ox 07/06/20 11:29 72 16 07/06/20 10:03 20 H 94 07/06/20 07:52 18 07/06/20 07:48 98.8 F 72 18 144/61 H 97 Medical Necessity - Tobacco Use Smoking Status: Former smoker Assessment/Plan All Active Problems Pneumonia (Acute) Hypoxia (Acute) History of GI bleed (Resolved) Gout (Resolved) #Sepsis due to community acquired pneumonia tachypnea has resolved. on IV ceftriaxone and azithromycin WBC has trended up to 16.3 from 11.7 on admission the patient feels much better. COVID Test was negative. Blood cultures pending. Will check urine for strep and Legionella. Titrate oxygen to maintain saturation above 90% #Hypertension: On atenolol and amlodipine. #Diabetes mellitus: On glimepiride. Insulin sliding scale. Accu-Cheks AC at bedtime. #Lactic acidosis: lactic acid trended up to 3.1. Continue gentle hydration with IVF #History of aortic valve replacement: On Coumadin. Check INR. DVT prophylaxis: Not indicated as patient already anticoagulated on Coumadin. Inpatient E&M: [id number] [facility] Hosp L2
[2020-07-06 11:55] LABS: Bedside Glucose 72 mg/dL (70-110)
[2020-07-06 16:16] LABS: Bedside Glucose 115 mg/dL (70-110)
[2020-07-06 21:40] LABS: Bedside Glucose 137 mg/dL (70-110)
[2020-07-06] MEDS: Atenolol 50 MG Tablet PO (22:04)
[2020-07-07] VITALS (10 sets, daily range): BP systolic 122–170; BP diastolic 60–76; PULSE 64–110; RESP 14–18; TEMP 36.8–37.4; O2SAT 92–95
[2020-07-07] MEDS: hydrALAZINE 20 MG/ML Vial 10 MG IV (06:13)
[2020-07-07] MEDS: 0.9% Saline Lock 10 ML Syringe IV (06:13)
[2020-07-07 06:50] LABS: Bedside Glucose 106 mg/dL (70-110)
[2020-07-07] MEDS: Ipratropium/Albuterol Sulfate 3 ML AMPUL.NEB INHALATION ×3 (06:52→19:59)
[2020-07-07 06:55] LABS: Absolute Lymphocyte Count 2.37 X10^3/uL (0.83-4.51); Absolute Neutrophil Count 6.2 X10^3/uL (2.0-7.7); Basophil# 0.03 X10^3/uL; Basophil% 0.3 % (0-1); Eosinophil# 0.33 X10^3/uL; Eosinophils% 3.4 % (0-5); Hematocrit 38.3 % (40-54); Hemoglobin 12.3 g/dL (13.0-16.5); Lymphocyte # 2.37 X10^3/ul (4.0); Lymphocyte % 24.4 % (19-41); Mean Corp Hgb Conc 32.1 g/dL (32-36); Mean Corpuscular Hgb 31.2 pg (27.0-32.0); Mean Corpuscular Volume 97.2 fL (80-94); Mean Platelet Vol. 10.5 fl (6.2-12.0); Monocyte# 0.73 X10^3/uL; Monocyte% 7.5 % (0-10); NRBC Flagged by Analyzer 0 % (0-5); Neutrophil # 6.24 X10^3/uL (2.7-7.7); Neutrophil % 64.1 % (47-70); Platelet Count 209 K/mm3 (150-450); RBC Distribution Width CV 13.8 % (11.6-14.6); RBC Distribution Width SD 49.3 fl (35.1-43.9); Red Blood Count 3.94 M/mm3 (4.6-6.2); White Blood Count 9.7 K/mm3 (4.4-11.0)
[2020-07-07 07:22] LABS: Anion Gap 3 (5-15); BUN 17 mg/dL (7-18); BUN/Creat Ratio 18.5 RATIO (10-20); Chloride 115 mmol/L (98-107); Creatinine, Serum 0.92 mg/dL (0.70-1.30); EST Glomerular Filtration Rate 84 mL/min (>60); Est Glom Filt Rate - Afr Amer 102 mL/min (>60); Estimated Creatinine Clearance 69.12 ml/min; Glucose 87 mg/dL (74-106); Potassium 4.2 mmol/L (3.5-5.1); Sodium Level 142 mmol/L (136-145)
[2020-07-07] MEDS: 0.9% Normal Saline 1,000 ML 125 ML IV ×2 (07:24→15:38)
[2020-07-07] MEDS: Glimepiride 2 MG Tablet PO (08:08)
[2020-07-07] MEDS: Multivitamins,Therapeutic Tablet 1 TABLET PO (08:08)
[2020-07-07] MEDS: Allopurinol 100 MG Tablet PO (08:09)
[2020-07-07] MEDS: amLODIPine 10 MG Tablet PO (09:53)
[2020-07-07] MEDS: Tamsulosin HCl 0.4 MG Capsule PO (09:54)
[2020-07-07] MEDS: Nystatin Powder 15gm Bottle 1 APPLIC TOPICAL ×2 (09:55→21:30)
[2020-07-07 11:15] LABS: Bedside Glucose 96 mg/dL (70-110)
--- NOTE | 2020-07-07 11:16 | PCM.PN.HOSP ---
Patient Problems: Active and Suspected Problems Pneumonia (Acute) Hypoxia (Acute) Subjective: Patient seen and examined. He feels much better today and is off oxygen now. Review of systems otherwise negative. WBC is down to 9.7 and he has remained hemodynamically stable. Vitals/I&O's: Vital Signs Temp Pulse Resp BP Pulse Ox 98.6 F 75 14 141/62 H 94 07/07/20 09:10 07/07/20 09:10 07/07/20 09:10 07/07/20 09:10 07/07/20 09:10 Oxygen Flow Rate (L/min) 2 Oxygen Delivery Method Room Air Weight: 199 lb 11.821 oz Body Mass Index (BMI) 27.1 Finger Stick Blood Glucose 119 Intake and Output for Last 24 Hours 07/05/20 07/06/20 07/07/20 23:59 23:59 23:59 Intake Total 1305 / 1305 3839.58 / 3839.58 1000 / 1000 Output Total 200 / 350 200 / 200 Balance 1305 / 1305 3639.58 / 3489.58 800 / 800 General: Alert, Oriented x3, Cooperative, No apparent distress HEENT: Atraumatic, PERRLA, EOMI, Normocephalic Oral: Dry Mucosa Neck: Supple, No JVD, Negative Carotid Bruits Lungs: - - decreased breath sounds bibasally, no wheezes or crackles. On room air. Cardiovascular: Regular rate, Regular Rhythm, Normal S1, Normal S2, No murmurs Abdomen: Bowel Sounds Present, Soft, Non Tender Extremities: No edema, Capillary Refill Less than 3 Seconds Skin: No rashes, No breakdown Musculoskeletal: No Tenderness to Palpation of Joints or Extremities Lymphatic: No Cervical, Supraclavicular, or Inguinal Adenopathy Neurological: Cranial nerves II-XII grossly intact, Neuro grossly intact, Motor Exam 5/5 strength throughout Psych/Mental Status: Normal Affect, Appropriate, Alert and oriented to time, place, person, mood and affect Microbiology Past 72 Hours 07/06/20 12:15 Urine, Clean Catch Legionella Antigen - Final 07/06/20 12:15 Urine, Clean Catch Streptococcus pneumoniae Antigen (M - Final 07/05/20 16:15 Mucosa - Nose SARS-CoV-2 Antigen (Rapid) - Final Laboratory Results 07/06/20 11:51: POC Glucose 72 07/06/20 15:33: POC Glucose 115 H 07/06/20 21:22: POC Glucose 137 H 07/07/20 06:30: WBC 9.7, RBC 3.94 L, Hgb 12.3 L, Hct 38.3 L, MCV 97.2 H, MCH 31.2, MCHC 32.1, RDW Std Deviation 49.3 H, RDW Coeff of Gilbert 13.8, Plt Count 209, MPV 10.5, Immature Gran % (Auto) 0.300, Neut % (Auto) 64.1, Lymph % (Auto) 24.4, [place] % (Auto) 7.5, Eos % (Auto) 3.4, Baso % (Auto) 0.3, Absolute Neuts (auto) 6.2, Absolute Lymphs (auto) 2.37, Nucleated RBC % 0 07/07/20 06:30: Sodium 142, Potassium 4.2, Chloride 115 H, Carbon Dioxide 24.0, Anion Gap 3 L, BUN 17, Creatinine 0.92, Estim Creat Clear Calc 69.12, Est GFR (MDRD) Af Amer 102, Est GFR (MDRD) Non-Af 84, BUN/Creatinine Ratio 18.5, Glucose 87, Calcium 8.0 L 07/07/20 06:45: POC Glucose 106 07/07/20 11:10: POC Glucose 96 Diagnostic Data Chest X-Ray 07/05/20 16:10 IMPRESSION: Suspect right hilar mass with right upper lobe atelectasis. Correlation with CT the chest with contrast is recommended. Electronically Signed: Aki Norwood MD at 16:24 EST Tel , Service support , ADDENDUM: 07/05/20 1680 IMPRESSION: Suspect right hilar mass with right upper lobe atelectasis. Correlation with CT the chest with contrast is recommended. N.B. : The above information has been verbally conveyed by Aki Norwood MD to Kris Ellis MD, on 07/05/2020 16:30:15 (ET). Electronically Signed: Aki Norwood MD at 16:24 EST Tel , Service support , Chest CTA 07/05/20 16:40 IMPRESSION: CTA chest examination, without a demonstrated pulmonary embolism or arterial dissection. Mild lower lung interstitial edema or infiltrates. No dominant mass or adenopathy. Abnormality on x-ray likely represented summation of structures including tortuous and ectatic mediastinal vascularity and overlapping osseous structures. Electronically Signed: Rom Norman MD at 18:58 EST , Service support , Current Medications Albuterol/Ipratropium (Ipratropium/Albuterol Sulfate 3 Ml Ampul.Neb) 3 ml INHALATION Q6HWA.RT [facility] Last Admin: 07/07/20 06:52 Dose: 3 ml Documented by: Allopurinol ([facility] 100 Mg Tablet) [facility] Last Admin: 07/07/20 08:09 Dose: 100 mg Documented by: Amlodipine Besylate (Amlodipine 10 Mg Tablet) 10 mg PO DAILY [facility] Last Admin: 07/07/20 09:53 Dose: 10 mg Documented by: Atenolol (Atenolol 50 Mg Tablet) 50 mg PO QHS [facility] Last Admin: 07/06/20 22:04 Dose: 50 mg Documented by: Dextrose (Dextrose 50%-Water 25 Gm/50 Ml Disp.Syrin) 0 gm IV X1 PRN; Protocol PRN Reason: Hypoglycemia Glimepiride (Glimepiride 2 Mg Tablet) [facility] Last Admin: 07/07/20 08:08 Dose: 2 mg Documented by: Glucagon (Glucagon 1 Mg/Ml Syringe) 1 mg IM .X1 PRN PRN Reason: Hypoglycemia Hydralazine HCl (Hydralazine 20 Mg/Ml Vial) 10 mg IV Q4H PRN PRN PRN Reason: SBP >160 Last Admin: 07/07/20 06:13 Dose: 10 mg Documented by: Sodium Chloride () 1,000 mls @ 125 mls/hr IV .Q8H [facility] Last Admin: 07/07/20 07:24 Dose: 125 mls/hr Documented by: Ceftriaxone Sodium 2 gm/ (Sodium Chloride) 50 mls @ 100 mls/hr IV Q24@2200 [facility] Last Infusion: 07/06/20 23:04 Dose: Infused Documented by: Azithromycin 500 mg/ Dextrose 255 mls @ 250 mls/hr IV Q24@2200 [facility] Last Infusion: 07/06/20 23:18 Dose: Infused Documented by: Sodium Chloride () 250 mls @ 15 mls/hr IV .[id number] PRN PRN Reason: Saline Flush Sodium Chloride () 250 mls @ 15 mls/hr IV .[id number] PRN PRN Reason: Additional IVPB Infusion Insulin Human Lispro (Insulin Lispro 100 Unit/Ml Insuln.Pen) 0 unit SC ACHS [facility]; Protocol Last Admin: 07/07/20 11:13 Dose: Not Given Documented by: Multivitamins (Multivitamins,Therapeutic Tablet) [facility] Last Admin: 07/07/20 08:08 Dose: 1 tablet Documented by: Nystatin (Nystatin Powder 15gm Bottle) 1 applic TOPICAL BID [facility]; Protocol Last Admin: 07/07/20 09:55 Dose: 1 applicatio Documented by: Sodium Chloride (0.9% Saline Lock 10 Ml Syringe) 10 - 40 ml IV UD PRN PRN Reason: SALINE FLUSH Last Admin: 07/07/20 06:13 Dose: 10 ml Documented by: Tamsulosin HCl (Tamsulosin Hcl 0.4 Mg Capsule) 0.4 mg PO DAILY [facility] Last Admin: 07/07/20 09:54 Dose: 0.4 mg Documented by: Warfarin Sodium (Warfarin 3 Mg Tablet) 3 mg PO MoWeFr@1700 [facility] Last Admin: 07/05/20 23:36 Dose: 3 mg Documented by: Warfarin Sodium (Warfarin 6 Mg Tablet) 6 mg PO SuTuThSa@1700 [facility] Last Admin: 07/06/20 17:33 Dose: 6 mg Documented by: STROKE Vital Signs/Narrative: Vital Signs Temp Pulse Resp BP Pulse Ox 07/07/20 09:10 98.6 F 75 14 141/62 H 94 Medical Necessity - Tobacco Use Smoking Status: Former smoker Assessment/Plan All Active Problems Pneumonia (Acute) Hypoxia (Acute) History of GI bleed (Resolved) Gout (Resolved) #Sepsis due to community acquired pneumonia on IV ceftriaxone and azithromycin wbc is down to 9 blood cultures pending. urine for strep and legionella were negative COVID test was negative. now on room air. #Hypertension: On atenolol and amlodipine. #Diabetes mellitus: On glimepiride. Insulin sliding scale. Accu-Cheks AC at bedtime. #Lactic acidosis: stable. #History of aortic valve replacement: On Coumadin. Check INR. DVT prophylaxis: Not indicated as patient already anticoagulated on Coumadin. INR tody is pending. Inpatient E&M: [id number] [facility] Hosp L3
[2020-07-07 17:06] LABS: Bedside Glucose 101 mg/dL (70-110)
[2020-07-07] MEDS: Atenolol 50 MG Tablet PO (21:30)
[2020-07-07 21:55] LABS: Bedside Glucose 121 mg/dL (70-110)
[2020-07-08] VITALS (9 sets, daily range): BP systolic 131–140; BP diastolic 54–63; PULSE 60–89; RESP 18–20; TEMP 36.7–37.1; O2SAT 92–98
[2020-07-08] MEDS: 0.9% Normal Saline 1,000 ML 125 ML IV ×2 (01:31→09:42)
[2020-07-08 06:45] LABS: Bedside Glucose 91 mg/dL (70-110)
[2020-07-08 06:57] LABS: Absolute Lymphocyte Count 2.07 X10^3/uL (0.83-4.51); Absolute Neutrophil Count 5.1 X10^3/uL (2.0-7.7); Basophil# 0.04 X10^3/uL; Basophil% 0.5 % (0-1); Eosinophil# 0.37 X10^3/uL; Eosinophils% 4.4 % (0-5); Hematocrit 35.3 % (40-54); Hemoglobin 11.2 g/dL (13.0-16.5); Lymphocyte # 2.07 X10^3/ul (4.0); Lymphocyte % 24.6 % (19-41); Mean Corp Hgb Conc 31.7 g/dL (32-36); Mean Corpuscular Hgb 31.1 pg (27.0-32.0); Mean Corpuscular Volume 98.1 fL (80-94); Mean Platelet Vol. 10.8 fl (6.2-12.0); Monocyte# 0.79 X10^3/uL; Monocyte% 9.4 % (0-10); NRBC Flagged by Analyzer 0 % (0-5); Neutrophil # 5.13 X10^3/uL (2.7-7.7); Neutrophil % 60.9 % (47-70); Platelet Count 212 K/mm3 (150-450); RBC Distribution Width SD 51.1 fl (35.1-43.9); White Blood Count 8.4 K/mm3 (4.4-11.0)
[2020-07-08] MEDS: Ipratropium/Albuterol Sulfate 3 ML AMPUL.NEB INHALATION (07:19)
[2020-07-08 07:20] LABS: Anion Gap 5 (5-15); BUN 24 mg/dL (7-18); BUN/Creat Ratio 23.1 RATIO (10-20); Calcium,Total 7.6 mg/dL (8.5-10.1); Chloride 118 mmol/L (98-107); Creatinine, Serum 1.04 mg/dL (0.70-1.30); EST Glomerular Filtration Rate 73 mL/min (>60); Est Glom Filt Rate - Afr Amer 88 mL/min (>60); Estimated Creatinine Clearance 61.14 ml/min; Glucose 90 mg/dL (74-106); Potassium 4.3 mmol/L (3.5-5.1); Sodium Level 145 mmol/L (136-145)
[2020-07-08] MEDS: Nystatin Powder 15gm Bottle 1 APPLIC TOPICAL (08:40)
[2020-07-08] MEDS: amLODIPine 10 MG Tablet PO (10:01)
[2020-07-08] MEDS: Tamsulosin HCl 0.4 MG Capsule PO (10:01)
[2020-07-08] MEDS: Allopurinol 100 MG Tablet PO (10:01)
[2020-07-08] MEDS: Glimepiride 2 MG Tablet PO (10:01)
[2020-07-08] MEDS: Multivitamins,Therapeutic Tablet 1 TABLET PO (10:01)
[2020-07-08 11:25] LABS: Bedside Glucose 87 mg/dL (70-110)
--- NOTE | 2020-07-08 12:58 | CON.PCM_ITS ---
Reason for Consult Date of Consultation: 07/08/20 Reason for Consultation: Infected soft tissue mass right middle medial back. REFERRING PHYSICIAN: Dr. Muhammad. CARAMEL CUTTER HAND: Dr. Preciado. History of Present Illness: The patient is a 80 year old male patient with a history of diabetes was admitted for pneumonia which is improving. While hospitalized, it was noted he had an infected soft tissue mass right middle medial back. He states he had it lanced in the past and it has recurred. At the present time, he denies any pain. He denies any drainage. He is currently on Ceftriaxone and Azithromycin for his pneumonia. I was asked to evaluate this patient for surgical options for treatment. Past Medical History Past Medical History (Chronic Problems): Chronic Problems Cellulitis of mid back region (Chronic) Mass on back (Chronic) 6 cm infected soft tissue mass right middle medial back Chronic anticoagulation (Chronic) HTN (hypertension) (Chronic) History of aortic valve replacement (Chronic) Diabetes mellitus, type 2 (Chronic) Allergies No Known Allergies Allergy (Verified 06/05/18 12:15) Home Medications: Ambulatory Orders Medication Instructions Recorded Allopurinol [Zyloprim] 100 mg PO DAILYCM 05/27/15 Glimepiride [Amaryl] 2 mg PO DAILY 05/27/15 Multivitamins,Therapeutic 1 tablet PO DAILY 05/27/15 [Multivitamin] Atenolol [Tenormin] 50 mg PO QHS #30 tablet 06/13/18 Tamsulosin HCl [Flomax] 0.4 mg PO DAILY #30 capsule 06/13/18 Amlodipine [Norvasc] 10 mg PO DAILY 07/05/20 Warfarin Sodium 3 mg PO MOWEFR 07/05/20 Warfarin Sodium 6 mg PO SUTUTHSA 07/05/20 levoFLOXacin tablet [Levaquin 750 mg PO DAILY #3 tab 07/08/20 tablet] Clindamycin HCl 300 mg PO TID #21 cap 07/09/20 Surgical History: - - Aortic valve replacement in approximately 1994 Psychiatric History: No pertinent psych hx Smoking Status: Former smoker - *Family History Paternal History Items: COPD Maternal History Items: Diabetes Review of Systems Comment: Constitutional: Reports: Weakness. Denies: Chills, Fever, Weight Change. HEENT: Denies: Head Aches, Sinus Congestion, Sinus Drainage. Cardiovascular: Denies: Chest Pain, Palpitations. Respiratory: Reports: Cough, Shortness of breath at rest. Denies: Sputum production. Gastrointestinal: Denies: Abdominal Pain, Nausea, Vomiting. Genitourinary: Denies: Dysuria. Musculoskeletal: Denies: Joint Pain, Joint Tenderness. Skin: Denies: Rash, Wounds. Neurological: Denies: Numbness, Tingling, Focal weakness. Psychiatric: Denies: Anxiety, Depression, Homicidal Ideations, Suicidal Ideations. Hematolog ic/ Lymphatic: Denies: Easy Bruising, Easy Bleeding Patient Problems: Active and Suspected Problems Pneumonia (Acute) Hypoxia (Acute) - Physical Exam Vitals/I&O's: General: Alert, Oriented x3. HEENT: PERRL. EOMI. Neck: Supple, nontender. No cervical adenopathy. Lungs: Clear to auscultation. Cardiovascular: Regular rate. Abdomen: Soft, nondistended. Extremities: No edema. Skin: On the right middle medial back is an infected soft tissue mass. Measures 6 cm. Nontender. Minimal fluctuance. No purulent drainage. Musculoskeletal: No Tenderness to Palpation of Joints or Extremities. Neurological: Cranial nerves II-XII grossly intact. Psych/Mental Status: Normal Affect, Appropriate. Vital Signs Temp Pulse Resp BP Pulse Ox 98.1 F 64 20 H 131/63 H 98 07/08/20 07:53 07/08/20 08:35 07/08/20 07:53 07/08/20 07:53 07/08/20 09:39 Oxygen Flow Rate (L/min) 2 Oxygen Delivery Method Room Air Weight: 199 lb 11.821 oz Body Mass Index (BMI) 27.1 Finger Stick Blood Glucose 119 Intake and Output for Last 24 Hours 07/06/20 07/07/20 07/08/20 23:59 23:59 23:59 Intake Total 3839.58 / 3839.58 2705 / 2705 2690 / 2690 Output Total 200 / 350 200 / 250 50 / 50 Balance 3639.58 / 3489.58 2505 / 2455 2640 / 2640 Microbiology Past 72 Hours 07/05/20 15:40 Blood Culture (Wb) - Anticubital Left Blood Culture - Preliminary No growth in 48 hours. 07/05/20 15:35 Blood Culture (Wb) - Anticubital Right Blood Culture - Preliminary No growth in 48 hours. 07/06/20 12:15 Urine, Clean Catch Legionella Antigen - Final 07/06/20 12:15 Urine, Clean Catch Streptococcus pneumoniae Antigen (M - Final 07/05/20 16:15 Mucosa - Nose SARS-CoV-2 Antigen (Rapid) - Final Laboratory Results 07/07/20 16:59: POC Glucose 101 07/07/20 21:40: POC Glucose 121 H 07/08/20 06:21: WBC 8.4, RBC 3.60 L, Hgb 11.2 L, Hct 35.3 L, MCV 98.1 H, MCH 31.1, MCHC 31.7 L, RDW Std Deviation 51.1 H, RDW Coeff of Gilbert 14.0, Plt Count 212, MPV 10.8, Immature Gran % (Auto) 0.200, Neut % (Auto) 60.9, Lymph % (Auto) 24.6, [place] % (Auto) 9.4, Eos % (Auto) 4.4, Baso % (Auto) 0.5, Absolute Neuts (auto) 5.1, Absolute Lymphs (auto) 2.07, Nucleated RBC % 0 07/08/20 06:21: Sodium 145, Potassium 4.3, Chloride 118 H, Carbon Dioxide 22.0, Anion Gap 5, BUN 24 H, Creatinine 1.04, Estim Creat Clear Calc 61.14, Est GFR (MDRD) Af Amer 88, Est GFR (MDRD) Non-Af 73, BUN/Creatinine Ratio 23.1 H, Glucose 90, Calcium 7.6 L 07/08/20 06:27: POC Glucose 91 07/08/20 11:19: POC Glucose 87 Current Medications Albuterol/Ipratropium (Ipratropium/Albuterol Sulfate 3 Ml Ampul.Neb) 3 ml INHALATION Q6HWA.RT [facility] Last Admin: 07/08/20 07:19 Dose: 3 ml Documented by: Allopurinol ([facility]op[facility] 100 Mg Tablet) [facility] Last Admin: 07/08/20 10:01 Dose: 100 mg Documented by: Amlodipine Besylate (Amlodipine 10 Mg Tablet) 10 mg PO DAILY [facility] Last Admin: 07/08/20 10:01 Dose: 10 mg Documented by: Atenolol (Atenolol 50 Mg Tablet) 50 mg PO QHS [facility] Last Admin: 07/07/20 21:30 Dose: 50 mg Documented by: Dextrose (Dextrose 50%-Water 25 Gm/50 Ml Disp.Syrin) 0 gm IV X1 PRN; Protocol PRN Reason: Hypoglycemia Glimepiride (Glimepiride 2 Mg Tablet) [facility] Last Admin: 07/08/20 10:01 Dose: 2 mg Documented by: Glucagon (Glucagon 1 Mg/Ml Syringe) 1 mg IM .X1 PRN PRN Reason: Hypoglycemia Hydralazine HCl (Hydralazine 20 Mg/Ml Vial) 10 mg IV Q4H PRN PRN PRN Reason: SBP >160 Last Admin: 07/07/20 06:13 Dose: 10 mg Documented by: Sodium Chloride () 1,000 mls @ 125 mls/hr IV .Q8H [facility] Last Admin: 07/08/20 09:42 Dose: 125 mls/hr Documented by: Ceftriaxone Sodium 2 gm/ (Sodium Chloride) 50 mls @ 100 mls/hr IV Q24@2200 [facility] Last Infusion: 07/07/20 23:02 Dose: Infused Documented by: Azithromycin 500 mg/ Dextrose 255 mls @ 250 mls/hr IV Q24@2200 [facility] Last Infusion: 07/07/20 23:44 Dose: Infused Documented by: Sodium Chloride () 250 mls @ 15 mls/hr IV .[id number] PRN PRN Reason: Saline Flush Sodium Chloride () 250 mls @ 15 mls/hr IV .[id number] PRN PRN Reason: Additional IVPB Infusion Insulin Human Lispro (Insulin Lispro 100 Unit/Ml Insuln.Pen) [facility]; Protocol Last Admin: 07/08/20 11:20 Dose: Not Given Documented by: Multivitamins (Multivitamins,Therapeutic Tablet) [facility] Last Admin: 07/08/20 10:01 Dose: 1 tablet Documented by: Nystatin (Nystatin Powder 15gm Bottle) 1 applic TOPICAL BID [facility]; Protocol Last Admin: 07/08/20 08:40 Dose: 1 applicatio Documented by: Sodium Chloride (0.9% Saline Lock 10 Ml Syringe) 10 - 40 ml IV UD PRN PRN Reason: SALINE FLUSH Last Admin: 07/07/20 06:13 Dose: 10 ml Documented by: Tamsulosin HCl (Tamsulosin Hcl 0.4 Mg Capsule) 0.4 mg PO DAILY [facility] Last Admin: 07/08/20 10:01 Dose: 0.4 mg Documented by: Warfarin Sodium (Warfarin 3 Mg Tablet) 3 mg PO MoWeFr@1700 [facility] Last Admin: 07/07/20 17:04 Dose: 3 mg Documented by: Warfarin Sodium (Warfarin 6 Mg Tablet) 6 mg PO SuTuThSa@1700 [facility] Last Admin: 07/06/20 17:33 Dose: 6 mg Documented by: Assessment/Plan All Active Problems Sepsis (Acute) Pneumonia (Acute) Hypoxia (Acute) History of GI bleed (Resolved) Gout (Resolved) 1. 6 cm recurrent infected soft tissue mass right middle medial back. 2. Diabetes mellitus. 3. Sepsis, resolved. Patient was admitted for pneumonia which is resolving. He is currently on Ceftriaxone and Azithromycin. Will add Clindamycin for this infected soft tissue mass at discharge. The mass is recurrent, chronic and stable at this time. Patient denies tenderness. Patient states he may be going home today or tomorrow. Can have him followup in the office early next week for continued close followup. Ideally would like to have the redness and inflammation subside prior to surgery so the wound can be closed at the time of surgery. If persistent infection is noted at subsequent visits, then after the infected mass is excised, the wound would be left open and wound care started with the VAC or with daily Silver dressing changes. If we do the surgery now before discharge, would have to leave the wound open and proceed with wound care with the VAC or with daily Silver dressing changes. Also would like to avoid non-emergent surgery at this time because of his recent pneumonia. Patient was in agreement and will followup next week in the office. He says his sons can help him with the wound care if necessary. Hopefully we can get this infected mass excised and reconstruct the wound with a local skin flap. At the time of the excision of this infected mass, surgery would be done under local anesthesia and IV sedation. Patient was informed of the risks and complications of the procedure including alternatives to surgery. These were discussed with the patient personally. Patient voices understanding and wishes to proceed. We discussed the current risks associated with COVID-19. While it is understood that there is a community spread of COVID-19, the risk of lyn COVID-19 while at [facility] ([facility]) is very low; however, the risk cannot be completely mitigated because of the community spread of the disease. We discussed in detail the risk of exposure to and/or potential harm posed by the COVID-19 virus with having a surgery/procedure at this time versus the risk of delaying the surgery/procedure. It is not possible to know either the risk of delaying the surgery or procedure or chance of getting an infection with perfect accuracy, but a joint decision was made to proceed at this time with the scheduled surgery/procedure as indicated on the consent form. Patient was notified that we will need to comply with any screening or testing [facility] wishes to perform or that surgery may be delayed for any positive results. Discussed with the patient that I was tested for COVID-19 on 12/11/19 which was negative and on 12/25/19 which was negative and on 01/08/20 which was negative and on 01/22/20 which was negative and on 02/05/20 which was negative and on 02/26/20 which was negative and on 03/18/20 which was negative and on 04/22/20 which was negative and on 05/13/20 which was negative and on 06/01/20 which was negative. My testing regimen at this time is to be COVID-19 tested every 2 weeks or so. I received the COVID-19 vaccine (Moderna) on 06/09/20 and the second dose was received on 07/07/20. Procedure Criteria Procedure Type: Elective COVID Risk Discussion: The surgeon/proceduralist and patient have discussed in detail the risk of exposure to and/or potential harm posed by the COVID-19 virus with having a surgery/procedure at this time versus the risk of delaying the surgery/procedure. It is not possible to know either the risk of delaying the surgery or procedure or chance of getting an infection with perfect accuracy, but a joint decision was made between the patient and the surgeon/proceduralist to proceed at this time with the scheduled surgery/procedure as indicated on the consent form. Inpatient E&M: 56082 Init Hosp L2 - ICD-10 - R22.2, L03.312, A41.9, E11.9
--- NOTE | 2020-07-08 14:59 | PCM.DC ---
- Discharge Diagnoses Current Active Problems: Current Active and Chronic Problems Pneumonia (Acute) Hypoxia (Acute) Chronic anticoagulation (Chronic) HTN (hypertension) (Chronic) History of aortic valve replacement (Chronic) Diabetes mellitus, type 2 (Chronic) You will use the following diet at home:: Calorie/Carbohydrate Controlled (specify 1200, 1400, etc) - 1800 calorie cardiac diet Your food should be the consistency of: Regular Your liquids should be the consistency of: Regular/Thin Discharge Activity: Return to Normal Activity Weight Bearing Status: Weight bearing as tolerated Call your doctor if you observe: Fever of 101 or Higher, Shortness of breath, Dizziness, Fainting spells, Swelling in the ankles, Chest pain, Uncontrolled pain Instructions: Getting a Pneumococcal Vaccination, Pneumonia, Pneumonia, ED Cellulitis Allergies/Adverse Reactions: Allergies No Known Allergies Allergy (Verified 06/05/18 12:15) Medications to take at Discharge Allopurinol [Zyloprim] 100 mg PO DAILYCM 05/27/15 Glimepiride [Amaryl] 2 mg PO DAILY 05/27/15 Multivitamins,Therapeutic [Multivitamin] 1 tablet PO DAILY 05/27/15 Atenolol [Tenormin] 50 mg PO QHS #30 tablet 06/13/18 Tamsulosin HCl [Flomax] 0.4 mg PO DAILY #30 capsule 06/13/18 Amlodipine [Norvasc] 10 mg PO DAILY 07/05/20 Warfarin Sodium 3 mg PO MOWEFR 07/05/20 Warfarin Sodium 6 mg PO SUTUTHSA 07/05/20 levoFLOXacin tablet [Levaquin tablet] 750 mg PO DAILY #3 tab 07/08/20 The following prescriptions were given: levoFLOXacin tablet [Levaquin tablet] 750 mg PO DAILY #3 tab Transmission Status: Pending to [facility] #[id number] Primary Care Physician: Andres Arce DO [Primary Care Provider] - Please follow up with your Primary Care Physician in: 1-2 weeks Test Results: Test results from this visit will be discussed in further detail at your follow-up appointment, if applicable. Please Follow Up With: Laz Preciado MD When: 1 week Proposed Discharge Date: 07/08/20
--- NOTE | 2020-07-08 15:01 | PCM.DC.SUM ---
Discharge Date and Diagnosis - Problem List Patient Problems: Active and Suspected Problems Pneumonia (Acute) Hypoxia (Acute) Date of Admission: 07/05/20 Date of Discharge: 07/08/20 - Primary Discharge Diagnosis Acute Problems: Active Problems community acquired Pneumonia (Acute) Hypoxia (Acute) acute hypoxic respiratory insufficiency - Secondary Discharge Diagnosis Chronic Problems: Chronic Problems Cellulitis of mid back region (Chronic) Mass on back (Chronic) 6 cm infected soft tissue mass right middle medial back Chronic anticoagulation (Chronic) HTN (hypertension) (Chronic) History of aortic valve replacement (Chronic) Diabetes mellitus, type 2 (Chronic) Hospital Course and Treatment Imaging Results: Diagnostic Data Chest X-Ray 07/05/20 16:10 IMPRESSION: Suspect right hilar mass with right upper lobe atelectasis. Correlation with CT the chest with contrast is recommended. Electronically Signed: Aki Norwood MD at 16:24 EST Tel , Service support , ADDENDUM: 07/05/20 1637 IMPRESSION: Suspect right hilar mass with right upper lobe atelectasis. Correlation with CT the chest with contrast is recommended. N.B. : The above information has been verbally conveyed by Aki Norwood MD to Kris Ellis MD, on 07/05/2020 16:30:15 (ET). Electronically Signed: Aki Norwood MD at 16:24 EST Tel , Service support , Chest CTA 07/05/20 16:40 IMPRESSION: CTA chest examination, without a demonstrated pulmonary embolism or arterial dissection. Mild lower lung interstitial edema or infiltrates. No dominant mass or adenopathy. Abnormality on x-ray likely represented summation of structures including tortuous and ectatic mediastinal vascularity and overlapping osseous structures. Electronically Signed: Rom Norman MD at 18:58 EST , Service support , Operations: None Procedures: None Summary of Care Provided: The patient is a 80 year old M with a past medical history as outlined who was admitted through the ED on 07/05/2020 with a complaint of shortness of breath which started about a week prior to admission and he had an associated cough. Symptoms have been progressively worsening so he came to the ED. Covid test by both antigen and PCR were negative. Chest x-ray done showed suspected right hilar mass with right upper lobe atelectasis. CT of the chest done showed no PE or dissection and showed a mild lower lung interstitial edema or infiltrate and no dominant mass or adenopathy with the abnormality on x-ray likely represented by summation of structures including tortuous and ectatic mediastinal vascularity and overlapping osseous structures. Patient was admitted and managed for acute hypoxic respiratory insufficiency due to community-acquired pneumonia. He was started on IV ceftriaxone and azithromycin. Patient's improved markedly and shortness of breath resolved. He was weaned off of oxygen. Patient was noted to have a firm erythematous swelling on his back which was nontender but oozed a little pus when squeezed. He had had recurrent abscess in this port and previously it needed to be lanced. Plastic surgery was consulted and plan was for patient's pneumonia to resolve and that he would follow-up on outpatient basis with plastic surgery for management of the mass. Of note, urine for strep and Legionella were negative and blood culture was negative after 48 hours. Patient was therefore discharged home on 07/08/2020 with a prescription for p.o. levofloxacin 750 mg for 3 days. He is to follow-up with his primary care doctor and also to follow-up with plastic surgery. Patient seen and examined. He had no complaints, and review of systems otherwise negative. Labs and vitals reviewed, and home medications reviewed and reconciled. O/E: Vital Signs Temp Pulse Resp BP Pulse Ox 98.7 F 70 18 140/54 H 92 07/08/20 14:45 07/08/20 14:45 07/08/20 14:45 07/08/20 14:45 07/08/20 14:45 [] General: Alert, Oriented x3, Cooperative, No apparent distress HEENT: Atraumatic, PERRLA, EOMI, Normocephalic Oral: Dry Mucosa Neck: Supple, No JVD, Negative Carotid Bruits Lungs: - - decreased breath sounds bibasally, no wheezes or crackles. On room air. Cardiovascular: Regular rate, Regular Rhythm, Normal S1, Normal S2, No murmurs Abdomen: Bowel Sounds Present, Soft, Non Tender Extremities: No edema, Capillary Refill Less than 3 Seconds Skin: No rashes, No breakdown; firm, nontender, ~ 6cm soft tissue infected mass in the middle of his back. No discharge noted, not fluctuant. Musculoskeletal: No Tenderness to Palpation of Joints or Extremities Lymphatic: No Cervical, Supraclavicular, or Inguinal Adenopathy Neurological: Cranial nerves II-XII grossly intact, Neuro grossly intact, Motor Exam 5/5 strength throughout Psych/Mental Status: Normal Affect, Appropriate, Alert and oriented to time, place, person, mood and affect Plan is for discharge home today. Of note, patient didnt qualify for home oxygen. Patient Problems: Active and Suspected Problems Pneumonia (Acute) Hypoxia (Acute) - Physical Exam Vitals/I&O's: Vital Signs Temp Pulse Resp BP Pulse Ox 98.7 F 70 18 140/54 H 92 07/08/20 14:45 07/08/20 14:45 07/08/20 14:45 07/08/20 14:45 07/08/20 14:45 Oxygen Flow Rate (L/min) 2 Oxygen Delivery Method Room Air Weight: 199 lb 11.821 oz Body Mass Index (BMI) 27.1 Finger Stick Blood Glucose 119 Intake and Output for Last 24 Hours 07/06/20 07/07/20 07/08/20 23:59 23:59 23:59 Intake Total 3839.58 / 3839.58 2705 / 2705 2690 / 2690 Output Total 200 / 350 200 / 250 50 / 50 Balance 3639.58 / 3489.58 2505 / 2455 2640 / 2640 Microbiology Past 72 Hours 07/05/20 15:40 Blood Culture (Wb) - Anticubital Left Blood Culture - Preliminary No growth in 48 hours. 07/05/20 15:35 Blood Culture (Wb) - Anticubital Right Blood Culture - Preliminary No growth in 48 hours. 07/06/20 12:15 Urine, Clean Catch Legionella Antigen - Final 07/06/20 12:15 Urine, Clean Catch Streptococcus pneumoniae Antigen (M - Final 07/05/20 16:15 Mucosa - Nose SARS-CoV-2 Antigen (Rapid) - Final Laboratory Results 07/07/20 16:59: POC Glucose 101 07/07/20 21:40: POC Glucose 121 H 07/08/20 06:21: WBC 8.4, RBC 3.60 L, Hgb 11.2 L, Hct 35.3 L, MCV 98.1 H, MCH 31.1, MCHC 31.7 L, RDW Std Deviation 51.1 H, RDW Coeff of Gilbert 14.0, Plt Count 212, MPV 10.8, Immature Gran % (Auto) 0.200, Neut % (Auto) 60.9, Lymph % (Auto) 24.6, Duchesne % (Auto) 9.4, Eos % (Auto) 4.4, Baso % (Auto) 0.5, Absolute Neuts (auto) 5.1, Absolute Lymphs (auto) 2.07, Nucleated RBC % 0 07/08/20 06:21: Sodium 145, Potassium 4.3, Chloride 118 H, Carbon Dioxide 22.0, Anion Gap 5, BUN 24 H, Creatinine 1.04, Estim Creat Clear Calc 61.14, Est GFR (MDRD) Af Amer 88, Est GFR (MDRD) Non-Af 73, BUN/Creatinine Ratio 23.1 H, Glucose 90, Calcium 7.6 L 07/08/20 06:27: POC Glucose 91 07/08/20 11:19: POC Glucose 87 Current Medications Albuterol/Ipratropium (Ipratropium/Albuterol Sulfate 3 Ml Ampul.Neb) 3 ml INHALATION Q6HWA.RT [facility] Last Admin: 07/08/20 07:19 Dose: 3 ml Documented by: Allopurinol ([facility] 100 Mg Tablet) [facility] Admin: 07/08/20 10:01 Dose: 100 mg Documented by: Amlodipine Besylate (Amlodipine 10 Mg Tablet) 10 mg PO DAILY [facility] Last Admin: 07/08/20 10:01 Dose: 10 mg Documented by: Atenolol (Atenolol 50 Mg Tablet) 50 mg PO QHS [facility] Last Admin: 07/07/20 21:30 Dose: 50 mg Documented by: Dextrose (Dextrose 50%-Water 25 Gm/50 Ml Disp.Syrin) 0 gm IV X1 PRN; Protocol PRN Reason: Hypoglycemia Glimepiride (Glimepiride 2 Mg Tablet) [facility] Last Admin: 07/08/20 10:01 Dose: 2 mg Documented by: Glucagon (Glucagon 1 Mg/Ml Syringe) 1 mg IM .X1 PRN PRN Reason: Hypoglycemia Hydralazine HCl (Hydralazine 20 Mg/Ml Vial) 10 mg IV Q4H PRN PRN PRN Reason: SBP >160 Last Admin: 07/07/20 06:13 Dose: 10 mg Documented by: Sodium Chloride () 1,000 mls @ 125 mls/hr IV .Q8H [facility] Last Admin: 07/08/20 09:42 Dose: 125 mls/hr Documented by: Ceftriaxone Sodium 2 gm/ (Sodium Chloride) 50 mls @ 100 mls/hr IV Q24@2200 [facility] Last Infusion: 07/07/20 23:02 Dose: Infused Documented by: Azithromycin 500 mg/ Dextrose 255 mls @ 250 mls/hr IV Q24@2200 [facility] Last Infusion: 07/07/20 23:44 Dose: Infused Documented by: Sodium Chloride () 250 mls @ 15 mls/hr IV .[id number] PRN PRN Reason: Saline Flush Sodium Chloride () 250 mls @ 15 mls/hr IV .[id number] PRN PRN Reason: Additional IVPB Infusion Insulin Human Lispro (Insulin Lispro 100 Unit/Ml Insuln.Pen) 0 unit SC [facility]; Protocol Last Admin: 07/08/20 11:20 Dose: Not Given Documented by: Multivitamins (Multivitamins,Therapeutic Tablet) [facility] Last Admin: 07/08/20 10:01 Dose: 1 tablet Documented by: Nystatin (Nystatin Powder 15gm Bottle) 1 applic TOPICAL BID [facility]; Protocol Last Admin: 07/08/20 08:40 Dose: 1 applicatio Documented by: Sodium Chloride (0.9% Saline Lock 10 Ml Syringe) 10 - 40 ml IV UD PRN PRN Reason: SALINE FLUSH Last Admin: 07/07/20 06:13 Dose: 10 ml Documented by: Tamsulosin HCl (Tamsulosin Hcl 0.4 Mg Capsule) 0.4 mg PO DAILY [facility] Last Admin: 07/08/20 10:01 Dose: 0.4 mg Documented by: Warfarin Sodium (Warfarin 3 Mg Tablet) 3 mg PO MoWeFr@1700 [facility] Last Admin: 07/07/20 17:04 Dose: 3 mg Documented by: Warfarin Sodium (Warfarin 6 Mg Tablet) 6 mg PO SuTuThSa@1700 [facility] Last Admin: 07/06/20 17:33 Dose: 6 mg Documented by: Discharge Diet: Low fat/ Low Cholesterol Discharge Activity: Return to Normal Activity Weight Bearing Status: Weight bearing as tolerated Call your doctor if you observe: Fever of 101 or Higher, Shortness of breath, Dizziness, Fainting spells, Swelling in the ankles, Chest pain, Uncontrolled pain Home Medications: Medications to take at Discharge Allopurinol [Zyloprim] 100 mg PO DAILYCM 05/27/15 Glimepiride [Amaryl] 2 mg PO DAILY 05/27/15 Multivitamins,Therapeutic [Multivitamin] 1 tablet PO DAILY 05/27/15 Atenolol [Tenormin] 50 mg PO QHS #30 tablet 06/13/18 Tamsulosin HCl [Flomax] 0.4 mg PO DAILY #30 capsule 06/13/18 Amlodipine [Norvasc] 10 mg PO DAILY 07/05/20 Warfarin Sodium 3 mg PO MOWEFR 07/05/20 Warfarin Sodium 6 mg PO SUTUTHSA 07/05/20 levoFLOXacin tablet [Levaquin tablet] 750 mg PO DAILY #3 tab 07/08/20 Following Prescriptions Were Given to Patient: levoFLOXacin tablet [Levaquin tablet] 750 mg PO DAILY #3 tab Transmission Status: Received by bizsol #[id number] Primary Care Physician: Andres Arce DO [Primary Care Provider] - Please follow up with your Primary Care Physician in: 1-2 weeks Please Follow Up With: Laz Preciado MD When: 1 week Patient Instructions: Getting a Pneumococcal Vaccination, Pneumonia, ED Cellulitis, Pneumonia Disposition: Home Minutes spent on discharge:: 40 Patient Condition:: Stable Medical Necessity - Tobacco Use Smoking Status: Former smoker Meaningful Use Info Meaningful Use Diagnoses (Choose all that apply): None applicable Inpatient E&M: 66908 Disch Hosp
--- NOTE | 2020-07-09 14:55 | CASEMGMT ---
ARCADIO JARRELL Discharge Follow-up Phone Call: NOELLE: Adelaida Strata: 3 Call Date: 07/09/20 Discharge Date: 07/08/20 Time of Call: 1455 Duration: 3 min Admitting Diagnosis: Community acquired pneumonia ARCADIO JARRELL completed follow-up phone call after recent hospitalization. Patient states he is doing well. Patient had no questions or concerns regarding discharge instructions. Patient was able to fill prescriptions without any issues. Patient aware to schedule follow-up appts. Patient had no further questions or concerns at this time.
== END 2020-07-08 16:02 | disposition home or self-care (01) | DRG 871 ==
LOC: ED 21:50 → MS3 22:26
PROVIDERS: Admitting Provider Family Medicine; Emergency Provider Emergency Medicine; PCP Preventive Medicine Occupational Medicine; Visit Provider Student in an Organized Health Care Education/Training Program
DX: A41.9 Sepsis, unspecified organism (principal); J18.9 Pneumonia, unspecified organism; E87.2 Acidosis; L03.312 Cellulitis of back [any part except buttock and flank]; R09.02 Hypoxemia; E11.9 Type 2 diabetes mellitus without complications; I10 Essential (primary) hypertension; Z86.73 Personal history of transient ischemic attack (TIA), and cerebral infarction without residual deficits; Z95.2 Presence of prosthetic heart valve; M10.9 Gout, unspecified; Z87.891 Personal history of nicotine dependence; R22.2 Localized swelling, mass and lump, trunk; R06.89 Other abnormalities of breathing
CPT/HCPCS: 36415; 36600; 71045; 71275; 80048; 80053; 82803; 82962; 83605; 84484; 85025; 85610; 87040; 87426; 87449; 87635; 93005; 94640; 99251; 99285; J7030; J7050; Q9967; A4216; G0463; J0696; U0002

== ENCOUNTER 2023-11-06 14:50 | Emergency (ER) | payer MEDICARE, SELFPAY ==
[2023-11-06 14:54] VITALS: BP 133/91; PULSE 57; RESP 16; TEMP 37.2; O2SAT 97; BMI 28.0
--- NOTE | 2023-11-06 15:06 | EDS_ITS ---
HPI History of Present Illness Chief Complaint: Syncope Onset/Context/Timing Onset: Today Context: Sudden Onset Timing: Intermittent Quality: Unresponsive Location: Generalized Worsened by: Nothing Relieved by: Nothing Narrative Narrative: Patient presents with a syncopal episode that occurred today. Patient was sitting down with his son. He patient states that when he went to get up he does not remember anything until his son was calling for EMS. Son reports the patient became incontinent of urine. Son reports the patient was unresponsive from the time that he fell until the time that he called EMS which was several minutes. Patient denies any palpitations, shortness of breath, cough, or diaphoresis. Patient denies any recent fevers or chills. Son reports that the patient has had a history of syncopal events when his INR became too high. [facility] Medical History (Updated 11/06/23 @ 17:[address] Waqas Ortiz, DO) Diabetes mellitus, type 2 Chronic anticoagulation HTN (hypertension) History of GI bleed Home Medications ?Medication ?Instructions ?Recorded ?Last Taken ?Type allopurinol 100 mg tablet 100 mg PO DAILYCM gout 05/27/15 07/05/20 History glimepiride 2 mg tablet 2 mg PO DAILY BLOOD SUGAR 05/27/15 07/05/20 History multivitamin with folic acid 400 1 tab PO DAILY SUPPLEMENT 05/27/15 07/04/20 History mcg tablet (Thera) atenolol 50 mg tablet (Tenormin) 50 mg PO QHS BLOOD PRESSURE #30 06/13/18 07/04/20 Rx tabs tamsulosin 0.4 mg capsule 0.4 mg PO DAILY PROSTATE ##30 06/13/18 07/05/20 Rx amlodipine 10 mg tablet 10 mg PO DAILY bp 07/05/20 07/05/20 History warfarin 6 mg tablet 3 mg PO MOWEFR valve replacement 07/05/20 07/02/20 History warfarin 6 mg tablet 6 mg PO SUTUTHSA valve replacement 07/05/20 07/04/20 History levofloxacin 750 mg tablet 750 mg PO DAILY #3 tabs 07/08/20 Unknown Rx clindamycin HCl 300 mg capsule 300 mg PO TID #21 caps 07/09/20 Unknown Rx Allergy/AdvReac Type Severity Reaction Status Date / Time No Known Allergies Allergy Verified 06/05/18 12:15 Surgical History (Updated 11/06/23 @ 15:[address] Waqas Ortiz DO) History of surgical removal of pilonidal cyst History of aortic valve replacement Social History Smoking Status: Former smoker ROS ROS ED Constitutional Constitutional ED: Denies chills or fever(s) Eyes Eyes: Denies blurry vision or change in vision ENT ENT ED: Denies rhinorrhea or sore throat Cardiovascular Cardiovascular: Denies chest pain or palpitations Respiratory/Chest Respiratory/Chest: Denies cough or dyspnea Gastrointestinal Gastrointestinal: Denies nausea or vomiting Genitourinary Genitourinary ED: Denies dysuria or hematuria Musculoskeletal Musculoskeletal: Denies back pain or neck pain Integumentary Denies abscess or rash Neurologic Neurologic: Denies headache(s) or weakness Allergic/Immunologic Allergic/Immunologic ED: Denies mouth swelling or urticaria EXAM Physical Exam Const Vital Signs: 11/06/23 14:54 11/06/23 16:14 11/06/23 17:09 Temperature 99.0 F Temperature Source Oral Pulse Rate 57 L 73 Pulse Rate [Lying] 67 Pulse Rate [Sitting (for 1 minute prior to obtaining)] 73 Pulse Rate [Standing (for 1 minute prior to obtaining)] 67 Respiratory Rate 16 23 H Blood Pressure 133/91 H 153/79 H Blood Pressure [Lying] 177/83 H Blood Pressure [Sitting (for 1 minute prior to obtaining)] 164/90 H Blood Pressure [Standing (for 1 minute prior to obtaining)] 153/79 H Blood Pressure Mean 105 103 Blood Pressure Mean [Lying] 114 Blood Pressure Mean [Sitting (for 1 minute prior to obtaining)] 114 Blood Pressure Mean [Standing (for 1 minute prior to obtaining)] 103 Pulse Ox 97 96 Oxygen Delivery Method Room Air Room Air Positive well nourished, well developed, alert, oriented x3 and no apparent distress General Appearance ED: well developed HEENT Reports normocephalic atraumatic Neck full ROM, supple and no JVD Resp normal respiratory effort and clear to auscultation bilaterally Cardio regular rate, regular rhythm and no murmurs Cardio Narrative: Mechanical heart valve was auscultated. GI soft to palpation, non-tender and non-distended Extremity normal to inspection, full ROM and no calf tenderness Neuro oriented x3, CN's II-XII intact bilaterally, moves all extremities, no focal motor deficits and no sensory deficits noted Lucinda Coma Scale: document GCS findings Spontaneous Obeys Commands Oriented 15 Sensorium / Orientation: awake and alert Motor Exam: muscle tone normal throughout Psych mental status grossly normal, thought process normal, cooperative and speech normal MDM MDM MDM Narrative Medical decision making narrative: Differential diagnosis includes cardiac dysrhythmia, cardiac ischemia, stroke, intracranial bleeding, coagulopathy, pneumonia, pneumothorax, electrolyte abnormality, and hypoglycemia. CT scan of the brain will be obtained to assess for intracranial bleeding and stroke. EKG will be obtained to assess for cardiac dysrhythmia and cardiac ischemia. Chest x-ray will be obtained to assess for pneumonia and widened mediastinum. CBC will be obtained to assess for leukocytosis and anemia. Comprehensive metabolic profile will be obtained to assess for hepatic function, renal function, and electrolyte abnormality. High-sensitivity troponin will be obtained to assess for cardiac ischemia. PT with INR and PTT will be obtained to assess for coagulopathy. Orthostatic vital signs will be obtained to assess for orthostatic hypotension. Lab Data Attestation: I reviewed the patient's lab results. Lab results narrative: CBC was reviewed and was essentially within normal limits. Comprehensive metabolic profile was reviewed. BUN was slightly elevated at 29 and creatinine was slightly elevated at 1.34. The remainder is essentially within normal limits. PT with INR and PTT were reviewed. Pro time was 51.2 and INR is 5.8. PTT was slightly elevated at 42.1. Urinalysis was reviewed. There is no evidence of urinary tract infection or hematuria. Labs: Laboratory Results - last 24 hr 11/06/23 11/06/23 14:35 17:05 WBC 9.9 RBC 4.20 L Hgb 13.0 Hct 41.0 MCV 97.6 H MCH 31.0 MCHC 31.7 L RDW Std Deviation 50.9 H RDW Coeff of Gilbert 14.3 Plt Count 258 MPV 11.1 Immature Gran % (Auto) 0.200 Neut % (Auto) 37.8 L Lymph % (Auto) 49.1 H Bates % (Auto) 8.5 Eos % (Auto) 4.0 Baso % (Auto) 0.4 Absolute Neuts (auto) 3.7 Absolute Lymphs (auto) 4.85 H Nucleated RBC % 0 PT 51.2 H INR 5.8 H* APTT 42.1 H Sodium 143 Potassium 4.3 Chloride 111 H Carbon Dioxide 23.0 Anion Gap 9 BUN 29 H Creatinine 1.34 H Estim Creat Clear Calc 48.80 Est GFR (MDRD) Af Amer 65 Est GFR (MDRD) Non-Af 54 L BUN/Creatinine Ratio 21.6 H Glucose 92 Lactic Acid 1.1 Calcium 8.5 Total Bilirubin 0.40 AST 23 ALT 25 Alkaline Phosphatase 107 Troponin I High Sens 25 Total Protein 6.8 Albumin 3.1 L Globulin 3.7 Albumin/Globulin Ratio 0.8 L Urine Color Yellow Urine Clarity Clear Urine pH 5.0 Ur Specific Oliver 1.015 Urine Protein 30 H Urine Glucose (UA) Normal Urine Ketones Negative Urine Occult Blood 10 H Urine Nitrite Negative Urine Bilirubin Negative Urine Urobilinogen Normal Ur Leukocyte Esterase Negative Urine RBC 0-5 SEEN Urine WBC 0 SEEN Ur Squamous Epith Cells 0 SEEN Urine Bacteria 0 SEEN Urine Mucus RARE Radiography Chest X-Ray - ED: 2 View, Read by ED Physician, Read by Radiologist and No Acute Disease Diagnostic Testing: Clinical Impression(s) from Imaging Studies Brain CT 11/06/23 15:29 IMPRESSION: Chronic involutional changes of the brain. No change or acute abnormality. Electronically Signed: Moises Funk MD at 16:45 EDT , Chest X-Ray 11/06/23 15:50 IMPRESSION: No definite acute or significant abnormality seen. Electronically Signed: Moises Funk MD at 16:17 EDT , CT scan of the brain was obtained. There is no acute intracranial abnormality. There are chronic involutional changes noted. This was interpreted by the radiologist and was also independently reviewed by myself. PA and lateral chest x-ray was obtained. There are 2 views. On my independent interpretation, lung romero are clear. There is normal cardiac silhouette. Bony thorax is normal. There is no acute process noted. Radiologist also interpreted the x-ray and agrees. EKG Initial EKG: Interpretation: Sinus Rhythm (With first-degree AV block with a rate of 60) and No Acute Injury Pattern Comments: EKG was obtained. On my independent interpretation, it showed a normal sinus rhythm with a first-degree AV block with a rate of 60. CO interval was prolonged at 290 ms. QRS interval was normal at 106 ms. QTc interval is normal at 430 ms. Crouse was normal. There are no acute ST or T wave changes. Prior EKG tracings: available for review Prior: Unchanged (07/05/2020) Treatment and Re-Evaluation :: Patient was given a dose of oral vitamin K. Patient was advised of his findings. Patient is low risk syncope according to [place] syncope rules and [place] syncope rules. Patient was instructed to stop his Coumadin for 2 days. Patient was instructed to follow-up with his primary care physician in 3 to 5 days. Patient was instructed to return if worse in any way. Patient understood and was agreeable with the plan. All questions were answered. Discharge Plan Triage Chief Complaint: Syncope ED Provider: Waqas Ortiz Dx/Rx/DC Orders Clinical Impression: Syncope and collapse, Chronic anticoagulation, Warfarin-induced coagulopathy Instructions: ED Fainting, Uncertain Cause Prescriptions: No Action allopurinol 100 MG tablet 100 mg PO DAILYCM Patient Comments: GOUT glimepiride 2 MG tablet 2 mg PO DAILY Patient Comments: BLOOD SUGAR multivitamin with folic acid [Thera] 1 TABLET tablet 1 tab PO DAILY Patient Comments: SUPPLIMENT tamsulosin 0.4 MG capsule 0.4 mg PO DAILY Qty: 30 0RF atenolol [Tenormin] 50 MG tablet 50 mg PO QHS Qty: 30 0RF warfarin 6 MG tablet 6 mg PO SUTUTHSA warfarin 6 MG tablet 3 mg PO MOWEFR amlodipine 10 MG tablet 10 mg PO DAILY levofloxacin 750 MG tablet 750 mg PO DAILY Qty: 3 0RF clindamycin HCl 300 MG capsule 300 mg PO TID Qty: 21 1RF Primary Care Provider: Andres Arce Referrals: Andres Arce DO [Primary Care Provider] - 3-5 Days Activity Restrictions/Additional Instructions: Hold your Coumadin for 2 days then restart it as prescribed. Print Language: [place] Disposition Disposition: Home, Self Care
--- NOTE | 2023-11-06 15:29 | CT_ITS ---
STUDY: CT BRAIN WITHOUT CONTRAST REASON FOR EXAM: Male, 83 years old. Syncope RADIATION DOSAGE (If Supplied By Facility): CTDIvol = ( 44.99 ) mGy, DLP = ( 796.11 ) mGycm TECHNIQUE: Transaxial CT imaging of the brain was performed without administration of intravenous contrast material. Individualized dose optimization techniques were used for this CT. COMPARISON: 06/06/2018 FINDINGS: Normal soft tissue structures. Normal calvarium. There is mild cerebral atrophy with widening of the extra-axial spaces and ventricular dilatation. There are areas of decreased attenuation within the white matter tracts of the supratentorial brain, consistent with microvascular disease changes. 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 Normal brainstem. There is mild cerebellar atrophy. There is no intracranial hemorrhage. There are no findings of an acute ischemic infarction. Normal visualized paranasal sinuses. CT/Brain/Head without Contrast IMPRESSION: Chronic involutional changes of the brain. No change or acute abnormality. Electronically Signed: Moises uFnk MD at 16:45 EDT ,
--- NOTE | 2023-11-06 15:29 | EKG12_ITS ---
Test Reason : DIZZY Blood Pressure : / mmHG Vent. Rate : 060 BPM Atrial Rate : 060 BPM P-R Int : 290 ms QRS Dur : 106 ms QT Int : 430 ms P-R-T Axes : 031 000 090 degrees QTc Int : 430 ms Sinus rhythm with 1st degree A-V block Otherwise normal ECG When compared with ECG of 05-JUL-2020 15:59, Previous ECG has undetermined rhythm, needs review Confirmed by Berlin Hernandez ([id number]), editor & co founder KRISTI DIEGO ([id number]) on 11/12/2023 1:30:48 PM Referred By: Confirmed By:Berlin Hernandez
--- NOTE | 2023-11-06 15:50 | RAD_ITS ---
STUDY: X-RAY CHEST REASON FOR EXAM: Male, 83 years old. Syncope TECHNIQUE: Frontal and lateral views of the chest. COMPARISON: 07/05/2020. FINDINGS: Elevated right hemidiaphragm otherwise normal lung volumes. The lungs are clear and expanded. There is no demonstrated pleural abnormality. Normal size heart. Previous CABG. Normal mediastinum and neelam. Normal visualized pulmonary arteries. There is atherosclerotic calcification of the aortic arch with tortuosity. There are diffuse degenerative changes of the visualized thoracic spine. There is degenerative osteoarthritis of the bilateral shoulders. There is no demonstrated abnormality of the visualized soft tissue structures of the upper abdomen. RAD/Chest PA and Lateral IMPRESSION: No definite acute or significant abnormality seen. Electronically Signed: Moises Funk MD at 16:17 EDT ,
[2023-11-06 15:53] LABS: Absolute Lymphocyte Count 4.85 X10^3/uL (0.83-4.51); Absolute Neutrophil Count 3.7 X10^3/uL (2.0-7.7); Basophil# 0.04 X10^3/uL; Basophil% 0.4 % (0-1); Eosinophil# 0.39 X10^3/uL; Lymphocyte # 4.85 X10^3/ul (0.83-4.51); Lymphocyte % 49.1 % (19-41); Mean Corp Hgb Conc 31.7 g/dL (32-36); Mean Corpuscular Volume 97.6 fL (80-94); Mean Platelet Vol. 11.1 fl (6.2-12.0); Monocyte# 0.84 X10^3/uL; Monocyte% 8.5 % (0-10); NRBC Flagged by Analyzer 0 % (0-5); Neutrophil # 3.73 X10^3/uL (2.7-7.7); Neutrophil % 37.8 % (47-70); Platelet Count 258 K/mm3 (150-450); RBC Distribution Width CV 14.3 % (11.6-14.6); RBC Distribution Width SD 50.9 fl (35.1-43.9); White Blood Count 9.9 K/mm3 (4.4-11.0)
[2023-11-06 16:13] LABS: Prothrombin Time (Protime)PT. 51.2 SECONDS (11.7-14.9)
[2023-11-06 16:14] VITALS: BP 153/79; BP 164/90; BP 177/83; PULSE 67; PULSE 73
[2023-11-06 16:14] LABS: ALB/GLOB Ratio 0.8 RATIO (0.9-2.4); AST(SGOT) 23 U/L (15-37); Alanine Aminotransfer ALT/SGPT 25 U/L (16-61); Albumin, Serum 3.1 g/dL (3.2-5.0); Alkaline Phosphatase 107 U/L (45-117); Anion Gap 9 (5-15); BUN 29 mg/dL (7-18); BUN/Creat Ratio 21.6 RATIO (10-20); Calcium,Total 8.5 mg/dL (8.5-10.1); Chloride 111 mmol/L (98-107); Creatinine, Serum 1.34 mg/dL (0.70-1.30); EST Glomerular Filtration Rate 54 mL/min (>60); Est Glom Filt Rate - Afr Amer 65 mL/min (>60); Globulin 3.7 g/dL (2.2-4.2); Glucose 92 mg/dL (74-106); Partial Thromboplast Time 42.1 Seconds (24.1-36.2); Potassium 4.3 mmol/L (3.5-5.1); Protein, Total 6.8 g/dL (6.4-8.2); Sodium Level 143 mmol/L (136-145); Troponin-I HS (w/2H Reflex) 25 pg/mL (3.0-78.0)
[2023-11-06 16:32] LABS: International Normalized Ratio 5.8
[2023-11-06 16:49] LABS: Lactic Acid 1.1 mmol/L (0.4-1.9)
[2023-11-06] MEDS: Phytonadione (Vit K1) 5 MG TABLET 2.5 MG PO (17:08)
[2023-11-06 17:09] VITALS: BP 153/79; PULSE 73; RESP 23; O2SAT 96
[2023-11-06 17:09] LABS: Bacteria 0 SEEN /hpf (None Seen); Squamous Epithelial Cells - UA 0 SEEN /hpf (0-5); White Blood Cells 0 SEEN /hpf (0-5)
[2023-11-06 17:26] LABS: Color, Urine Yellow (Yellow); Glucose, Dipstick Normal (Normal); Ketone-Dipstick Negative (Negative); Leukocyte Esterase-Dipstick Negative /ul (Negative); Nitrite-Dipstick Negative (Negative); Occult Blood-Urine 10 /ul (Negative); Protein-Dipstick 30 mg/dl (Negative); Specific Gravity, Urine 1.015 (1.002-1.030); Urine Bilirubin Dipstick Negative (Negative); Urine Clarity Clear (Clear); Urine Urobilinogen Normal (Normal)
[2023-11-06 17:33] LABS: Mucous, Urine RARE /hpf (<or=2+); Red Blood Cells-Urine 0-5 SEEN /hpf (0-5)
[2023-11-06 17:48] LABS: Reflex Troponin-HS? (from REC) Y
== END 2023-11-06 18:14 | disposition home or self-care (01) ==
PROVIDERS: Emergency Provider Emergency Medicine; PCP Preventive Medicine Occupational Medicine; Visit Provider Emergency Medicine
DX: R55 Syncope and collapse (principal); E11.9 Type 2 diabetes mellitus without complications; Z79.01 Long term (current) use of anticoagulants; Z87.891 Personal history of nicotine dependence
CPT/HCPCS: 70450; 71046; 80053; 81001; 83605; 84484; 85025; 85610; 85730; 93005; 99285; A4216

== ENCOUNTER → 2024-07-21 05:00 | Outpatient (REF) | payer MEDICARE, SELFPAY ==
[2024-07-21 09:15] LABS: INR Fingerstick 2.1; Prothrombin Time Fingerstick 22.6 SEC (11.7-14.9)
== END ==
LOC: OLS.WCC 05:00
PROVIDERS: PCP Preventive Medicine Occupational Medicine; Visit Provider Family Medicine
DX: Z79.01 Long term (current) use of anticoagulants (principal)
CPT/HCPCS: 36416; 85610

== ENCOUNTER → 2024-07-28 04:00 | Outpatient (REF) | payer MEDICARE, SELFPAY ==
[2024-07-28 08:32] LABS: INR Fingerstick 2.6; Prothrombin Time Fingerstick 27.5 SEC (11.7-14.9)
== END ==
LOC: OLS.WCC 04:00
PROVIDERS: PCP Preventive Medicine Occupational Medicine; Referring Provider Family Medicine; Visit Provider Family Medicine
DX: Z79.01 Long term (current) use of anticoagulants (principal)
CPT/HCPCS: 36416; 85610

== ENCOUNTER → 2024-08-05 04:00 | Outpatient (REF) | payer MEDICARE, SELFPAY | LOC: OLS.WCC 04:00 | PROVIDERS: PCP Preventive Medicine Occupational Medicine; Referring Provider Family Medicine; Visit Provider Family Medicine | DX: Z79.01 Long term (current) use of anticoagulants (principal) | CPT/HCPCS: 36416; 85610 ==

== ENCOUNTER → 2024-08-12 | Outpatient (REF) | payer MEDICARE, SELFPAY ==
[2024-08-12 08:59] LABS: International Normalized Ratio 3.9; Prothrombin Time (Protime)PT. 39.2 SECONDS (11.7-14.9)
== END ==
LOC: OLS.WCC 04:00
PROVIDERS: PCP Preventive Medicine Occupational Medicine; Referring Provider Family Medicine; Visit Provider Family Medicine
DX: I48.91 Unspecified atrial fibrillation (principal)
CPT/HCPCS: 36415; 85610